=== PATIENT | male | born 1955 | race Caucasian/White ===

== ENCOUNTER 2020-10-04 18:00 | Inpatient (IN) | payer OTHER ==
[~2020-10-04] VITALS: Ht 177.8 cm; Wt 65.1 kg
[2020-10-04 18:28] LABS: BASOPHILS 0.1 % (0-2); EOSINOPHILS 1.8 % (0-7); HEMATOCRIT 37.6 % (42.0-54.0); HEMOGLOBIN 12.4 g/dL (13.5-17.5); IMMATURE GRANULOCYTES 0.6 % (0-5); LYMPHOCYTE ABS# 1.58 10x3/uL (1.32-3.57); MCH 29.3 pg (26.0-34.0); MCV 88.9 fL (80.0-100.0); MEAN PLATELET VOLUME 9.1 fL (7.4-10.4); MONOCYTES 6.5 % (2-11); NEUTROPHIL ABS# 5.97 10x3/uL (1.78-5.38); RBC 4.23 10x6/uL (4.20-6.10); RDW 14.3 % (11.5-14.5); WBC 8.3 10x3/uL (4.8-10.8)
[2020-10-04 18:34] LABS: PLATELET COUNT 364 10x3/uL (130-400)
[2020-10-04 18:35] LABS: ANION GAP 13.9 mmol/L (8-16); CALCIUM 8.5 mg/dL (8.5-10.1); CARBON DIOXIDE 25.9 mmol/L (21.0-32.0); CREATININE - SERUM 1.4 mg/dL (0.6-1.3); POTASSIUM - SERUM 3.8 mmol/L (3.5-5.1)
[2020-10-04 18:41] LABS: ALBUMIN 3.3 g/dL (3.4-5.0); BILIRUBIN - TOTAL 0.59 mg/dL (0.2-1.3); PROTEIN - SERUM 6.3 g/dL (6.4-8.2)
[2020-10-04 19:16] VITALS: BP 153/91
[2020-10-04 20:44] VITALS: BP 148/88
--- NOTE | 2020-10-04 20:45 | NUR ---
FLORES CATH WAS PLACED PRIOR TO ARRIVAL AT [facility] ER DUE TO URINARY RETENTION. CONTACTED RAJENDRA NAIK APN. HE STATES FOR FLORES CATH TO BE CONTINUED AND HE WOULD PLACE ORDER. 16FR FLORES IN PLACE WITH 300ML CLEAR URINE PRESENT IN BAG.
[2020-10-04 21:36] VITALS: BP 139/81
[2020-10-04 23:54] VITALS: BP 137/79
[2020-10-05] VITALS (20 sets, daily range): BP systolic 75–175; BP diastolic 48–104; Ht 177.8 cm; Wt 65.1 kg
[2020-10-05] MEDS ORDERED: THERMOTABS 1 GM1 GM PO (02:27)
[2020-10-05] MEDS ORDERED: NORVASC5 MG PO (02:28)
[2020-10-05] MEDS ORDERED: COMBIVENT RESPIM4 GM INH (02:29)
[2020-10-05] MEDS ORDERED: FLOMAX0.4 MG PO (02:30)
[2020-10-05] MEDS ORDERED: BACLOFEN10 MG PO (02:34)
[2020-10-05] MEDS ORDERED: VITAMIN D325 MC1 PO (02:36)
[2020-10-05] MEDS ORDERED: [UNRECOGNIZED DRUG - OTHER] (02:37)
[2020-10-05] MEDS ORDERED: MIRALAX17 GM PO (02:39)
[2020-10-05] MEDS ORDERED: CLARITIN 10 MG10 MG PO (02:39)
[2020-10-05] MEDS ORDERED: WELLBUTRIN SR150 MG PO (02:41)
[2020-10-05] MEDS ORDERED: VISTARIL25 MG PO (02:41)
[2020-10-05] MEDS ORDERED: AMBIEN5 MG PO (02:42)
[2020-10-05] MEDS ORDERED: ZYPREXA10 MG PO (02:43)
[2020-10-05 06:16] LABS: BASOPHILS 0.4 % (0-2); EOSINOPHILS 1.7 % (0-7); HEMATOCRIT 36.9 % (42.0-54.0); HEMOGLOBIN 11.8 g/dL (13.5-17.5); IMMATURE GRANULOCYTES 0.7 % (0-5); LYMPHOCYTE ABS# 1.71 10x3/uL (1.32-3.57); LYMPHOCYTES 21.2 % (15-50); MCH 28.7 pg (26.0-34.0); MCV 89.8 fL (80.0-100.0); MEAN PLATELET VOLUME 9.3 fL (7.4-10.4); MONOCYTES 3.6 % (2-11); NEUTROPHIL ABS# 5.83 10x3/uL (1.78-5.38); NEUTROPHILS 72.4 % (40-80); PLATELET COUNT 372 10x3/uL (130-400); RBC 4.11 10x6/uL (4.20-6.10); RDW 14.1 % (11.5-14.5); WBC 8.1 10x3/uL (4.8-10.8)
[2020-10-05 06:42] LABS: ALBUMIN 2.9 g/dL (3.4-5.0); ANION GAP 16.7 mmol/L (8-16); BILIRUBIN - TOTAL 0.46 mg/dL (0.2-1.3); CALCIUM 8.3 mg/dL (8.5-10.1); CARBON DIOXIDE 21.5 mmol/L (21.0-32.0); CREATININE - SERUM 1.2 mg/dL (0.6-1.3); MAGNESIUM - SERUM 2.1 mg/dL (1.8-2.4); PHOSPHOROUS 2.9 mg/dL (2.5-4.9); POTASSIUM - SERUM 4.2 mmol/L (3.5-5.1); PROTEIN - SERUM 5.5 g/dL (6.4-8.2)
[2020-10-05 06:44] LABS: APTT 35.6 SECONDS (22.8-39.4); INR 1.18 (0.85-1.17); PROTIME 13.9 SECONDS (11.6-15.0)
--- NOTE | 2020-10-05 07:47 | NUR ---
PT ALERT AND ORIENTED, LYING IN BED WATCHING T/V. PTS BLOOD SUGAR WAS REPORTED CRITICAL BY LAB, INFORMED STEM DRYER MAINTAINER RAJENDRA. STARTED HYPOGLYCEMIA PROTOCOL. HUNG N/S WITH DEXTROSE PER STEM DRYER MAINTAINER ORDER. PT IS ASYMPTOMATIC AT THIS TIME. CL IN REACH, SRX2. FLORES CATHETER IN PLACE AND DRAINING WNL.
--- NOTE | 2020-10-05 09:29 | NUR ---
PT ALERT AND ORIENTED, LYING IN BED. PT HAS HIT CALL LIGHT 5 TIMES ASKING WHEN HE CAN SEE THE DR. INFORMED PT THAT HE WOULD BE GOING TO SURGERY TODAY AND THE DR. WOULD SPEAK TO HIM WHEN HE ARRIVED. PT VERBALIZES UNDERSTANDING. CONSENTS FOR PROCEDURE/BLOOD/ECT SIGNED. CL IN REACH, SRX2.
--- NOTE | 2020-10-05 09:48 | NUR ---
I have reviewed this patient and I concur with the Shift Assessment completed by the Licensed Practical Nurse today this shift.
--- NOTE | 2020-10-05 12:17 | NUR ---
PT ESCORTED OT SRUGERY VIA BED WITH SURGICAL NURSE.
--- NOTE | 2020-10-05 13:13 | NUR ---
PT STILL OUT FOR SURGERY.
--- NOTE | 2020-10-05 14:52 | NUR ---
PT IS GOING TO BE TRANSFERED TO CVICU ROOM 3, CALLED REPORT TO THALIA GROSS.
--- NOTE | 2020-10-05 15:08 | NUR ---
1445:p RECEIVED TO CV03. TRANSFERRED TO ICU BED AND CONNECTED TO MONITOR. VS OBTAINED. 1500: INTUBATED BY ANESTHESIA WITH 8.5 OETT. INTUBATION DRUGS GIVEN BY ANETHESIA. CONNECTECD TO VENT WITH FOLLOWING SETTINGS. TV 500 FIO2 100% AC 16 PEEP 5.
--- NOTE | 2020-10-05 17:34 | NUR ---
1545: DR. MACKENZIE HERE. BRONCH DONE. DIPRIVAN STARTED PER ORDER. SEE IV FLOWSHEET. 1630: VENT CHANGES AFTER ABGS. AC INCREASED TO 20 AND PEEP INCREASED TO 8. 1640: IV STARTED IN R WRIST WITH 2OG ON 1ST ATTEMPT. SITE DRESSED WITH TEGADERM. GOOD BLOOD RETURN NOTED BEFORE STARTED DIPRIVAN TO SITE.
--- NOTE | 2020-10-05 19:20 | NUR ---
REPORT REC'D AND CARE ASSUMED, REC'D PT ON VENT VIA 8.5ETT TAPED SECURELY SEE FLOWSHEET FOR VENT SETTINGS, AROUSES TO DEEP STIMULI, NODDING YES AND NO APPROPRIATELY, RIGHT WIRST PIV WITH DIPRIVAN INFUSING @ 10MCG/KG/MIN, SITE CDI, LEFT FOREARM WITH D5NS @ 100CC/HR, NO REDNESS OR EDEMA NOTED AT SITE, HYPOACTIVE BOWEL SOUNDS, NOTE ABOVE BED THAT STATES NO NGT OR OGT PER DR. SOLER, FLORES PATENT DRAINING CLEAR YELLOW URINE, BILAT SCDS ON, BILAT SOFT WRIST RESTRAINTS INTACT, WILL MONITOR FOR CHANGES.
[2020-10-06] VITALS (24 sets, daily range): BP systolic 83–137; BP diastolic 48–76
[2020-10-06 05:16] LABS: HEMATOCRIT 34.4 % (42.0-54.0); HEMOGLOBIN 11.3 g/dL (13.5-17.5); LYMPHOCYTE ABS# 0.25 10x3/uL (1.32-3.57); MCHC 32.8 g/dL (31.0-37.0); MCV 88.4 fL (80.0-100.0); MEAN PLATELET VOLUME 9.2 fL (7.4-10.4); NEUTROPHIL ABS# 23.89 10x3/uL (1.78-5.38); PLATELET COUNT 296 10x3/uL (130-400); RBC 3.89 10x6/uL (4.20-6.10); RDW 14.2 % (11.5-14.5); WBC 24.4 10x3/uL (4.8-10.8)
[2020-10-06 05:38] LABS: ALBUMIN 2.3 g/dL (3.4-5.0); ALKALINE PHOSPHATASE 48 U/L (30-120); ALT (SGPT) 12 U/L (10-68); BILIRUBIN - TOTAL 0.46 mg/dL (0.2-1.3); CALCIUM 7.5 mg/dL (8.5-10.1); CARBON DIOXIDE 22.6 mmol/L (21.0-32.0); CHLORIDE - SERUM 105 mmol/L (98-107); CREATININE - SERUM 1.2 mg/dL (0.6-1.3); MAGNESIUM - SERUM 1.9 mg/dL (1.8-2.4); PHOSPHOROUS 3.1 mg/dL (2.5-4.9); POTASSIUM - SERUM 4.2 mmol/L (3.5-5.1); SODIUM 137 mmol/L (136-145); UREA NITROGEN 23 mg/dL (7-18); eGFR NON AFRICAN AMERICAN 65 mL/min (90-120)
[2020-10-06 05:44] LABS: LYMPHOCYTES 1 % (15-50); NEUTROPHILS 95 % (40-80); PLATELET ESTIMATE NORMAL
[2020-10-06 05:46] LABS: CALC OSMOLALITY 283 mosm/kg (275-300); GLUCOSE 207 mg/dL (74-106); TROPONIN-I < 0.017 ng/mL (0.000-0.060)
--- NOTE | 2020-10-06 11:21 | NUR ---
PLACED PT ON CPAP 10/5 50% AT 11 AM
--- NOTE | 2020-10-06 13:27 | OP ---
PATIENT NAME: LANDON HSU MEDICAL RECORD: [id number] :57 LOCATION:.[facility] D.CV03 ADMISSION DATE:10/05/20 SURGEON: JUAN SOLER MD DATE OF OPERATION: 10/05/2020 PREOPERATIVE DIAGNOSIS: Esophageal food bolus. POSTOPERATIVE DIAGNOSES: 1. Esophageal food bolus/bezoar. 2. Aspiration pneumonia. 3. 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 PROCEDURE: 1. Esophagogastroduodenoscopy with antral biopsies. 2. Retrieval of food bolus/bezoar. 3. Balloon dilation of the distal esophagus to 54-Bahraini. SURGEON: Juan Soler MD SPEEDBOAT DRIVER: None. BLOOD LOSS: Minimal. The risks, possible complications, and alternatives of the procedure were explained to the patient. He elects to proceed. OPERATIVE REPORT: The patient was conveyed to the operating room electively on 10/05/2020. General endotracheal anesthesia was induced by the anesthesia staff in order to help protect the patient's airway. A bite block was inserted. A gastroscope was inserted into the mouth. It was advanced easily into the hypopharynx. The esophagus was easily intubated. There was a large amount of retained food material in a person with a megaesophagus. I tried to aspirate as much of this as I could. A lot of it was solid food material. I was able to navigate through it, find the esophagogastric junction and intubate the stomach. I advanced through the pylorus into the third portion of the duodenum. Upon withdrawal, retroflexed and angulus views were obtained. Antral biopsies were obtained. I then withdrew into the esophagus again. Endoscopic retrieval net was advanced and I removed some of the bezoar. It was obvious that this was going to take a very long time and multiple intubations of the esophagus in order to clear the bezoar. Instead, I opted for a different approach. I loaded an overtube on the gastroscope. The bite block was removed. I then intubated the patient's esophagus and advanced the overtube into the stomach. I then removed the gastroscope. I removed the inner portion of the overtube. Through the overtube, utilizing a suction cannula, I slowly withdrew the overtube while suctioning through the overtube. This allowed me to suction large pieces of material that would not otherwise be able to be suctioned through an endoscope. I then removed the overtube completely. Utilizing the gastroscope, I intubated the esophagus. About 95% of the material had been removed. I advanced into the stomach. I advanced a balloon dilator. I dilated up to a 40.5 Bahraini. The balloon dilator was then removed. It appeared that I could perhaps dilate a little bit more, so I advanced another balloon dilator and dilated up to 54-Bahraini times 3 minutes. I then removed the balloon dilator. I was then able to irrigate the esophagus and irrigate the remaining food material down into the OPERATIVE REPORT [id number] LANDON HSU Farnaz stomach. There was a mucosal tear, which is an expected finding from the balloon dilation. There was no evidence of a full thickness esophageal injury. The gastroscope was then withdrawn. There was some either mucus or food material within the endotracheal tube, indicating that the patient aspirated during the procedure. The patient was then conveyed to the postanesthesia care unit after extubation. He developed low oxygen saturations and was reintubated electively after transfer to the ICU. I contacted Dr. Vásquez as well as the hospitalist team. Dr. Vásquez performed an urgent bronchoscopy. TRANSINT:[id number] Voice Confirmation ID: [id number] DOCUMENT ID: [id number] JUAN SOLER MD at 1327 CC: [id number] DICTATION DATE: 10/05/201820 CHEMICALS DISTILLER: 10/06/20 0038 ADM IN [facility] [address] [id number]
--- NOTE | 2020-10-06 13:42 | NUR ---
consent for bronchoscopy signed by physician and we were unable to find any family or friends to call. new iv started right ac 20 maegan.
--- NOTE | 2020-10-06 19:30 | NUR ---
REC'D PT ON VENT VIA 8.5ETT TAPED SECURELY, SEE FLOWSHEET FOR VENT SETTINGS, AWAKENS TO VERBAL STIMULI, SLOW TO FOLLOW COMMANDS BUT DOES AND NODS YES AND NO APPROPRIATELY, RIGHT WRIST PIV WITH DIPRIVAN INFUSING @ 20MCG/KG/MIN AND RIGHT A/C PIV WITH D5NS @ 100CC/HR, FLORES PATENT DRAINING CLEAR YELLOW URINE, BILAT SCDS INTACT AND ON, BILAT SOFT WRIST RESTRAINTS INTACT, SR UP X 2, VISIBLE TO NURSES STATION.
--- NOTE | 2020-10-06 23:00 | NUR ---
PT RESTLESS IN BED, PULLING COVERS OFF AND ATTEMPTING TO GET OOB DESPITE ATTEMPTING TO CALM AND REDIRECT, BP 128/77, 2MG VERSED GIVEN SLOW IVP, PT REPOSITIONED ONTO LEFT SIDE SUPPORTED WITH WEDGES, WILL MONITOR CLOSELY FOR CHANGES.
[2020-10-07] VITALS (25 sets, daily range): BP systolic 115–153; BP diastolic 60–85
[2020-10-07 04:19] LABS: BASOPHILS 0 % (0-2); EOSINOPHILS 0 % (0-7); HEMATOCRIT 32.1 % (42.0-54.0); HEMOGLOBIN 10.5 g/dL (13.5-17.5); IMMATURE GRANULOCYTES 0.4 % (0-5); MCH 28.9 pg (26.0-34.0); MCHC 32.7 g/dL (31.0-37.0); MCV 88.4 fL (80.0-100.0); MEAN PLATELET VOLUME 9.4 fL (7.4-10.4); MONOCYTES 1.4 % (2-11); NEUTROPHIL ABS# 15.83 10x3/uL (1.78-5.38); NEUTROPHILS 95.2 % (40-80); PLATELET COUNT 289 10x3/uL (130-400); RBC 3.63 10x6/uL (4.20-6.10); RDW 14.3 % (11.5-14.5)
[2020-10-07 04:35] LABS: WBC 16.6 10x3/uL (4.8-10.8)
[2020-10-07 04:45] LABS: ALBUMIN 2.1 g/dL (3.4-5.0); ANION GAP 9.8 mmol/L (8-16); BILIRUBIN - TOTAL 0.33 mg/dL (0.2-1.3); CALCIUM 7.5 mg/dL (8.5-10.1); CREATININE - SERUM 1.1 mg/dL (0.6-1.3); POTASSIUM - SERUM 3.8 mmol/L (3.5-5.1); PROTEIN - SERUM 4.8 g/dL (6.4-8.2)
[2020-10-07 04:47] LABS: PHOSPHOROUS 2.3 mg/dL (2.5-4.9)
--- NOTE | 2020-10-07 10:06 | NUR ---
PATIENT EXTUBATED AT 1005 THIS AM AND PLACED ON 3 LITERS NASAL CANNULA. PROPOFOL TURNED OFF BEFORE EXTUBATION.
--- NOTE | 2020-10-07 11:57 | NUR ---
Nutrition Reassessment/Follow-up: POD 2 EGD with biopsies, retrieval of food bolus, balloon dilation. Extubated this AM. Diet: NPO Wt: 136.6# (10/07)BMI: 19.6 Labs noted: Glu 190, Ca 7.5, PO4 2.3, Alb 2.1 Meds noted: Solumedrol, Protonix, D5NS @ 100, electrolyte protocol -Nutrition needs unchanged from initial assessment. -Rec advance diet as tolerated as medically feasible pending BLOOD BANK WORKER eval. -RD follow-up: 10/09
--- NOTE | 2020-10-07 17:23 | NUR ---
PATIENT ORIENTED TO SELF AND REORIENTATION TO PLACE WITH SUCCESS MOVES ALL EXTREMITIES AND SPEECH HAS DONE THE EVAL AND ORDERS FOR MEALS NOTED.
[2020-10-07 17:25] LABS: BILIRUBIN NEGATIVE (NEGATIVE); KETONE NEGATIVE (NEGATIVE); NITRITE NEGATIVE (NEGATIVE); UROBILINOGEN NORMAL mg/dL (< 2)
--- NOTE | 2020-10-07 19:15 | NUR ---
REPORT REC'D AND CARE ASSUMED, REC'D PT RESTING IN BED, STATE I NEED THE BEDPAN, BEDPAN PROVIDED AND CALL LIGHT IN REACH.
--- NOTE | 2020-10-07 19:25 | NUR ---
PT REMOVED SELF FROM BEDPAN, NO RESULTS NOTED, PT ASSISTED TO REPOSITION IN BED FOR COMFORT, ORIENTED X 3 AT THIS TIME, O2 @ 2LITERS VIA NC, CM-SR, RIGHT WRIST PIV SALINE LOCKED AND RIGHT A/C PIV WITH D5NS @ 100CC/HR, FLORES PATENT DRAINING CLEAR YELLOW URINE, BILAT SCDS ON, PPP, PT REQUESTING ICE WATER AND SOMETHING TO SPIT IN, PT REMINDED OF MITCHELL AT BS, KLEENEX AND ICE WATER PROVIDED, PT DENIES OTHER NEEDS.
--- NOTE | 2020-10-07 23:30 | NUR ---
PT UNABLE TO SLEEP, AWAKE WATCHING TV, REQUESTING ORANGE JUICE, JUICE PROVIDED, DENIES FURTHER NEEDS.
[2020-10-08] VITALS (16 sets, daily range): BP systolic 98–138; BP diastolic 52–78
--- NOTE | 2020-10-08 02:00 | NUR ---
PT RESTING WITH EYES CLOSED, RESP EVEN AND UNLABORED, VSS. PT DID NOT FINISH ORANGE JUICE STATED " MY STOMACH DID NOT LIKE IT", WILL CONT TO MONITOR FOR CHANGES.
[2020-10-08 05:16] LABS: BASOPHILS 0 % (0-2); EOSINOPHILS 0 % (0-7); HEMATOCRIT 33.8 % (42.0-54.0); HEMOGLOBIN 10.7 g/dL (13.5-17.5); IMMATURE GRANULOCYTES 0.3 % (0-5); LYMPHOCYTE ABS# 0.42 10x3/uL (1.32-3.57); LYMPHOCYTES 2.8 % (15-50); MCH 28.7 pg (26.0-34.0); MCHC 31.7 g/dL (31.0-37.0); MEAN PLATELET VOLUME 9.8 fL (7.4-10.4); MONOCYTES 2.1 % (2-11); NEUTROPHILS 94.8 % (40-80); PLATELET COUNT 277 10x3/uL (130-400); RBC 3.73 10x6/uL (4.20-6.10); RDW 14.4 % (11.5-14.5); WBC 15.1 10x3/uL (4.8-10.8)
[2020-10-08 05:20] LABS: MCV 90.6 fL (80.0-100.0)
[2020-10-08 06:03] LABS: ALBUMIN 2.2 g/dL (3.4-5.0); ALKALINE PHOSPHATASE 43 U/L (30-120); BILIRUBIN - TOTAL 0.27 mg/dL (0.2-1.3); CALC OSMOLALITY 281 mosm/kg (275-300); CALCIUM 7.6 mg/dL (8.5-10.1); CARBON DIOXIDE 24.6 mmol/L (21.0-32.0); CHLORIDE - SERUM 105 mmol/L (98-107); GLUCOSE 143 mg/dL (74-106); MAGNESIUM - SERUM 1.9 mg/dL (1.8-2.4); PHOSPHOROUS 1.9 mg/dL (2.5-4.9); POTASSIUM - SERUM 3.9 mmol/L (3.5-5.1); PROTEIN - SERUM 4.8 g/dL (6.4-8.2); SODIUM 138 mmol/L (136-145); UREA NITROGEN 24 mg/dL (7-18); eGFR NON AFRICAN AMERICAN 80 mL/min (90-120)
[2020-10-08 06:04] LABS: ALT (SGPT) 11 U/L (10-68)
--- NOTE | 2020-10-08 07:47 | NUR ---
SHIFT REPORT RECEIVE. AWAKE AND ALERT. ON 2L O2 VIA NC. DENIES PAIN. PIV TO RIGHT AC WITH D5NS AT 100ML/HR. PIV TO RIGHT WRIST SALINE LOC. FLORES CATHETER IN PLACE WITH CLEAR YELLOW URINE NOTED. SDC'S CURRENTLY OFF PER PT REQUEST. VSS. NO FEVER NOTED. CALL LIGHT IN REACH. WILL CONTINUE TO MONITOR.
--- NOTE | 2020-10-08 10:00 | NUR ---
PIV TO RIGHT WRIST IS LEAKING. DC'D AT THIS TIME.
--- NOTE | 2020-10-08 11:35 | NUR ---
UP TO CHAIR WITH PHYSICAL THERAPY. CALL LIGHT IN REACH.
--- NOTE | 2020-10-08 13:00 | NUR ---
CALL RECEIVED FROM [facility]. WANTED TO KNOW HOW PT WAS DOING. WAS TOLD PT WAS STABLE AND GOING TO A REGULAR ROOM LATER TODAY.
[2020-10-08 13:12] LABS: ACID FAST SMEAR Negative (()); AFB SPECIMEN PROCESSING Concentration (())
--- NOTE | 2020-10-08 13:33 | NUR ---
SITTING UP IN CHAIR. FLORES CATHETER DC'D AT THIS TIME. URINAL PROVIDED. NO FURTHER NEEDS AT THIS TIME. WILL CONTINUE TO MONITOR.
--- NOTE | 2020-10-08 14:49 | NUR ---
REPORT CALLED TO MIAH GROSS ON MED SURG. ROOM NOT READY. WILL TRANSFER PT WHEN ROOM IS READY.
--- NOTE | 2020-10-08 15:45 | NUR ---
ASSIST TO BATHROOM. FALL PREVENTION INITIATED WITH DONAVAN IN CHAIR AND BED. MARY KATE TO ASSIST BACK TO BED
[2020-10-09] VITALS: BP 131/75
--- NOTE | 2020-10-09 02:41 | NUR ---
ASSUMED CARE OF PT AFTER REPORT/ROUNDS. PT A&OX3 AND VERBALIZES WANTS/NEEDS CLEARLY, APPROPRIATELY AND WITHOUT HESITATION OR DIFFICULTY. PT DID VERBALIZE HE FELT LIKE HE VOIDED A SMALL AMOUNT ON TOILET AFTER CATH REMOVED EARLIER IN THE DAY. PT HAS NOT VOIDED FOR THIS NURSE. PT DID ATTEMPT TO VOID WITH 15CC'S OF CLEAR URINE RETURNED BUT, WITH GREAT DIFFICULTY. PT BLADDER SCANNED AND SCAN SHOWED 677ML. STOMACH SLIGHTLY DISTENDED TO MID LOWER AREA AND PT C/O PAIN WITH PALPATION OF SAME. PRODIVER CALLED AND ORDER FOR CATH REC'D. ATTEMPTED TO PLACE A 16FR AND BLOCKAGE FELT. COUDE 14FR PLACED WITH SUCCESS AND DRAINING. 1100ML OF CLEAR YELLOW URINE RETURNED IMMEDIATELY UPON PLACEMENT.
[2020-10-09 04:00] VITALS: BP 149/60
[2020-10-09 06:37] LABS: BASOPHILS 0 % (0-2); EOSINOPHILS 0 % (0-7); HEMATOCRIT 32.8 % (42.0-54.0); HEMOGLOBIN 10.4 g/dL (13.5-17.5); IMMATURE GRANULOCYTES 0.6 % (0-5); LYMPHOCYTE ABS# 0.63 10x3/uL (1.32-3.57); MCH 28.4 pg (26.0-34.0); MCHC 31.7 g/dL (31.0-37.0); MCV 89.6 fL (80.0-100.0); MEAN PLATELET VOLUME 9.8 fL (7.4-10.4); MONOCYTES 2.9 % (2-11); NEUTROPHIL ABS# 11.52 10x3/uL (1.78-5.38); NEUTROPHILS 91.5 % (40-80); PLATELET COUNT 281 10x3/uL (130-400); RBC 3.66 10x6/uL (4.20-6.10); RDW 13.9 % (11.5-14.5); WBC 12.6 10x3/uL (4.8-10.8)
[2020-10-09 07:20] LABS: ALBUMIN 2.2 g/dL (3.4-5.0); ALKALINE PHOSPHATASE 43 U/L (30-120); BILIRUBIN - TOTAL 0.35 mg/dL (0.2-1.3); CALC OSMOLALITY 273 mosm/kg (275-300); CALCIUM 7.6 mg/dL (8.5-10.1); CHLORIDE - SERUM 102 mmol/L (98-107); CREATININE - SERUM 0.8 mg/dL (0.6-1.3); GLUCOSE 123 mg/dL (74-106); MAGNESIUM - SERUM 1.8 mg/dL (1.8-2.4); PHOSPHOROUS 1.7 mg/dL (2.5-4.9); POTASSIUM - SERUM 3.7 mmol/L (3.5-5.1); PROTEIN - SERUM 4.9 g/dL (6.4-8.2); SODIUM 135 mmol/L (136-145); UREA NITROGEN 20 mg/dL (7-18); eGFR NON AFRICAN AMERICAN > 90 mL/min (90-120)
[2020-10-09 07:21] LABS: ALT (SGPT) 25 U/L (10-68)
[2020-10-09 08:00] VITALS: BP 151/88
--- NOTE | 2020-10-09 12:40 | NUR ---
Nutrition follow-up: Pt out of ICU Diet advanced to regular mechanical soft with thin liquids PO intake ~60% average of last 3 meals Wt: 144# +BM +fluid balance at this time labs reviewed Will continue to monitor patients progress toward nutritional goals Reassessment: 10/14/20
[2020-10-09 16:09] LABS: FUNGUS STAIN Final report (())
[2020-10-09 18:08] LABS: IMMUNOGLOBULIN E 3 IU/mL (6-495)
[2020-10-09 20:00] VITALS: BP 120/68
[2020-10-10 03:33] VITALS: BP 141/84
[2020-10-10 06:20] LABS: BASOPHILS 0 % (0-2); EOSINOPHILS 0 % (0-7); HEMOGLOBIN 10.1 g/dL (13.5-17.5); IMMATURE GRANULOCYTES 1.7 % (0-5); LYMPHOCYTE ABS# 0.65 10x3/uL (1.32-3.57); LYMPHOCYTES 7.5 % (15-50); MCH 28.7 pg (26.0-34.0); MCHC 32.6 g/dL (31.0-37.0); MCV 88.1 fL (80.0-100.0); MEAN PLATELET VOLUME 9.8 fL (7.4-10.4); MONOCYTES 5.3 % (2-11); NEUTROPHIL ABS# 7.37 10x3/uL (1.78-5.38); NEUTROPHILS 85.5 % (40-80); PLATELET COUNT 286 10x3/uL (130-400); RBC 3.52 10x6/uL (4.20-6.10); RDW 13.8 % (11.5-14.5)
[2020-10-10 06:23] LABS: WBC 8.6 10x3/uL (4.8-10.8)
[2020-10-10 06:45] LABS: ALKALINE PHOSPHATASE 43 U/L (30-120); BILIRUBIN - TOTAL 0.27 mg/dL (0.2-1.3); CALC OSMOLALITY 270 mosm/kg (275-300); CALCIUM 7.5 mg/dL (8.5-10.1); CARBON DIOXIDE 28.2 mmol/L (21.0-32.0); CHLORIDE - SERUM 101 mmol/L (98-107); CREATININE - SERUM 0.8 mg/dL (0.6-1.3); GLUCOSE 123 mg/dL (74-106); POTASSIUM - SERUM 3.9 mmol/L (3.5-5.1); PROTEIN - SERUM 4.2 g/dL (6.4-8.2); SODIUM 134 mmol/L (136-145); UREA NITROGEN 19 mg/dL (7-18); eGFR NON AFRICAN AMERICAN > 90 mL/min (90-120)
[2020-10-10 06:47] LABS: ALT (SGPT) 38 U/L (10-68)
[2020-10-10 08:56] VITALS: BP 145/80
--- NOTE | 2020-10-10 09:00 | NUR ---
ASSESSMENT PER FLOW SHEET. PATIENT IS WITHOUT DISTRESS.DENIES NEEDS.FALL PREVENTION WITH DONAVAN MAT. CALL LIGHT IN REACH. USE INSTRUCTED
[2020-10-10 12:58] VITALS: BP 122/86
--- NOTE | 2020-10-10 13:16 | NUR ---
PATIENT GOING FOR SWALLOW STUDY
[2020-10-10 16:55] VITALS: BP 141/80
--- NOTE | 2020-10-10 18:02 | NUR ---
NOT TOLERATING MECH SOFT THIN LIQUID DIET. LARGE AMOUNTS OF MUCOUS BEING SPIT OUT AFTER ONLY A COUPLE BITES.NPO FOR SAFETY
--- NOTE | 2020-10-10 19:03 | NUR ---
PIV TO RIGHT AC LEAKING. PIV REMOVED WITH CATHETER TIP INTACT. DRESSING APPLIED. 20G PIV TO LEFT HAND. PT TOLERATED WELL. PIV INFUSING PER ORDER WITHOUT DIFFICULTY/COMPROMISE. BED IS IN THE LOWEST POSITION. CALL LIGHT AND BEDSIDE TABLE ARE WITHIN REACH. SIDE RAILS X 2. WILL NOTIFY SHIFT NURSE.
[2020-10-10 20:00] VITALS: BP 101/64
--- NOTE | 2020-10-10 21:57 | NUR ---
ASSESSED AT THE BEGINNING OF THE SHIFT. PT IS ALERT AND ORIENTED, ABLE TO VERBALIZE NEEDS. HE HAS A FLORES CATH FOR URINARY RETENTION AND IS NPO DUE TO SWALLOWING PROBLEMS. HE HAS BEEN CHOKING AND SPITTING UP PHELM INTO A BLUE BAG OFF AND ON ALL EVENING. O2 IS IN PLACE AT 1 LITER PER N/C. SCD'S ARE IN PLACE. HELD HIS HS MEDS DUE TO THE SWALLOWING PROBLEMS. HE DOES HAVE SOME ICE TO KEEP HIS MOUTH FROM GETTING TOO DRY.
[2020-10-11] VITALS: BP 128/76; BP 130/73
--- NOTE | 2020-10-11 02:23 | NUR ---
RSTING OFF AND ON. NO SIGNS OF CHOKING WHILE ASLEEP. BLUE BAG FOR VOMIT AT THE BEDSIDE
[2020-10-11 07:07] LABS: BASOPHILS 0 % (0-2); EOSINOPHILS 0 % (0-7); HEMATOCRIT 32.7 % (42.0-54.0); HEMOGLOBIN 10.6 g/dL (13.5-17.5); IMMATURE GRANULOCYTES 1.5 % (0-5); LYMPHOCYTE ABS# 0.98 10x3/uL (1.32-3.57); LYMPHOCYTES 7.6 % (15-50); MCH 28.6 pg (26.0-34.0); MCHC 32.4 g/dL (31.0-37.0); MCV 88.1 fL (80.0-100.0); MEAN PLATELET VOLUME 9.5 fL (7.4-10.4); MONOCYTES 7.2 % (2-11); NEUTROPHIL ABS# 10.78 10x3/uL (1.78-5.38); NEUTROPHILS 83.7 % (40-80); PLATELET COUNT 290 10x3/uL (130-400); RBC 3.71 10x6/uL (4.20-6.10); RDW 13.7 % (11.5-14.5)
[2020-10-11 07:13] LABS: WBC 12.9 10x3/uL (4.8-10.8)
[2020-10-11 07:25] LABS: ALBUMIN 2.2 g/dL (3.4-5.0); ALKALINE PHOSPHATASE 45 U/L (30-120); ALT (SGPT) 31 U/L (10-68); BILIRUBIN - TOTAL 0.37 mg/dL (0.2-1.3); CALC OSMOLALITY 271 mosm/kg (275-300); CALCIUM 7.8 mg/dL (8.5-10.1); CARBON DIOXIDE 28.1 mmol/L (21.0-32.0); CHLORIDE - SERUM 99 mmol/L (98-107); CREATININE - SERUM 0.8 mg/dL (0.6-1.3); GLUCOSE 118 mg/dL (74-106); MAGNESIUM - SERUM 1.8 mg/dL (1.8-2.4); POTASSIUM - SERUM 3.4 mmol/L (3.5-5.1); PROTEIN - SERUM 4.8 g/dL (6.4-8.2); SODIUM 134 mmol/L (136-145); UREA NITROGEN 20 mg/dL (7-18); eGFR NON AFRICAN AMERICAN > 90 mL/min (90-120)
[2020-10-11 09:31] VITALS: BP 140/85
[2020-10-11 13:19] VITALS: BP 129/69
[2020-10-11 17:25] VITALS: BP 125/74
--- NOTE | 2020-10-12 05:24 | NUR ---
ASSESSED AT THE BEGINNING OF THE SHIFT. PT IS ALERT AND ORIENTED, ABLE TO VERBALIZE NEEDS. HE HAS SEEMED TO HAVE MORE ENERGY AND DID TRY TO EAT SOME OF HIS DINNER. HE REFUSED TO TAKE HIS SODIUM CHLORIDE PILL BUT DID ATTEMPT TO TAKE THE OTHERS. HE DID NOT KNOW IF HE KEPT ANY DOWN BECAUSE OF THE GAGGING AND SPITTING UP WHENEVER HE TRIED TO SWALLOW. HIS O2 IS 1 LITER AND HE HAS HIS SCD'S OFFF FOR HIS COMFORT.
[2020-10-12 05:52] LABS: BASOPHILS 0.1 % (0-2); EOSINOPHILS 0.3 % (0-7); HEMATOCRIT 30.9 % (42.0-54.0); HEMOGLOBIN 10.2 g/dL (13.5-17.5); IMMATURE GRANULOCYTES 2.2 % (0-5); LYMPHOCYTE ABS# 1.37 10x3/uL (1.32-3.57); LYMPHOCYTES 15.2 % (15-50); MCH 29.1 pg (26.0-34.0); MCV 88.3 fL (80.0-100.0); MEAN PLATELET VOLUME 9.6 fL (7.4-10.4); MONOCYTES 7.8 % (2-11); NEUTROPHIL ABS# 6.71 10x3/uL (1.78-5.38); NEUTROPHILS 74.4 % (40-80); PLATELET COUNT 272 10x3/uL (130-400); RDW 13.8 % (11.5-14.5)
[2020-10-12 06:11] LABS: ALBUMIN 2.2 g/dL (3.4-5.0); ALKALINE PHOSPHATASE 41 U/L (30-120); BILIRUBIN - TOTAL 0.38 mg/dL (0.2-1.3); CALC OSMOLALITY 272 mosm/kg (275-300); CALCIUM 7.8 mg/dL (8.5-10.1); CARBON DIOXIDE 27.3 mmol/L (21.0-32.0); CHLORIDE - SERUM 101 mmol/L (98-107); CREATININE - SERUM 0.9 mg/dL (0.6-1.3); GLUCOSE 109 mg/dL (74-106); MAGNESIUM - SERUM 1.8 mg/dL (1.8-2.4); POTASSIUM - SERUM 3.4 mmol/L (3.5-5.1); PROTEIN - SERUM 4.4 g/dL (6.4-8.2); SODIUM 135 mmol/L (136-145); UREA NITROGEN 18 mg/dL (7-18); eGFR NON AFRICAN AMERICAN 90 mL/min (90-120)
[2020-10-12 06:13] LABS: ALT (SGPT) 23 U/L (10-68)
[2020-10-12 06:24] VITALS: BP 115/67
[2020-10-12 08:22] VITALS: BP 145/91
[2020-10-12 12:20] VITALS: BP 117/76
[2020-10-12 16:49] VITALS: BP 143/81
--- NOTE | 2020-10-12 20:00 | NUR ---
WATCHING TV WITH NO COMPLAITNS VOICED. RESP UNLABORED. IV TO LEFT HAND INTACT WITHOUT REDNESS OR EDEMA NOTED. CL IN REACH
--- NOTE | 2020-10-13 00:12 | NUR ---
I have reviewed this patient and I concur with the Shift Assessment completed by the Licensed Practical Nurse today this shift.
[2020-10-13 00:40] VITALS: BP 132/75
[2020-10-13 07:56] LABS: BASOPHILS 0.1 % (0-2); EOSINOPHILS 1.6 % (0-7); HEMATOCRIT 33.9 % (42.0-54.0); IMMATURE GRANULOCYTES 3.9 % (0-5); LYMPHOCYTE ABS# 1.28 10x3/uL (1.32-3.57); LYMPHOCYTES 18.4 % (15-50); MCH 28.5 pg (26.0-34.0); MCHC 32.4 g/dL (31.0-37.0); MCV 87.8 fL (80.0-100.0); MEAN PLATELET VOLUME 9.2 fL (7.4-10.4); MONOCYTES 8.5 % (2-11); NEUTROPHIL ABS# 4.68 10x3/uL (1.78-5.38); NEUTROPHILS 67.5 % (40-80); PLATELET COUNT 283 10x3/uL (130-400); RBC 3.86 10x6/uL (4.20-6.10); RDW 13.9 % (11.5-14.5); WBC 6.9 10x3/uL (4.8-10.8)
[2020-10-13 08:14] VITALS: BP 129/77
[2020-10-13 08:23] LABS: ALBUMIN 2.3 g/dL (3.4-5.0); ALKALINE PHOSPHATASE 47 U/L (30-120); ALT (SGPT) 24 U/L (10-68); BILIRUBIN - TOTAL 0.53 mg/dL (0.2-1.3); CALC OSMOLALITY 267 mosm/kg (275-300); CALCIUM 7.9 mg/dL (8.5-10.1); CARBON DIOXIDE 28.4 mmol/L (21.0-32.0); CHLORIDE - SERUM 99 mmol/L (98-107); CREATININE - SERUM 0.8 mg/dL (0.6-1.3); GLUCOSE 87 mg/dL (74-106); MAGNESIUM - SERUM 1.9 mg/dL (1.8-2.4); POTASSIUM - SERUM 3.9 mmol/L (3.5-5.1); PROTEIN - SERUM 4.6 g/dL (6.4-8.2); SODIUM 134 mmol/L (136-145); UREA NITROGEN 14 mg/dL (7-18); eGFR NON AFRICAN AMERICAN > 90 mL/min (90-120)
--- NOTE | 2020-10-13 09:54 | NUR ---
RESTING IN BED, NO DISTRESS NOTED, NPO, FLORES TO GRAVITY, GOOD OUTPUT, IV INFUSING
--- NOTE | 2020-10-13 12:03 | NUR ---
UP IN CHAIR FOR MEAL PER DR SOUZA
[2020-10-13 13:42] VITALS: BP 98/69
[2020-10-13 16:35] VITALS: BP 101/64
[2020-10-14 06:59] LABS: HEMATOCRIT 39.7 % (42.0-54.0); HEMOGLOBIN 13.1 g/dL (13.5-17.5); LYMPHOCYTE ABS# 0.39 10x3/uL (1.32-3.57); MCH 28.9 pg (26.0-34.0); MCV 87.6 fL (80.0-100.0); MEAN PLATELET VOLUME 9.7 fL (7.4-10.4); NEUTROPHIL ABS# 29.49 10x3/uL (1.78-5.38); PLATELET COUNT 322 10x3/uL (130-400); RBC 4.53 10x6/uL (4.20-6.10); RDW 14.3 % (11.5-14.5); WBC 30.6 10x3/uL (4.8-10.8)
[2020-10-14 07:24] LABS: ANION GAP 11.9 mmol/L (8-16); BILIRUBIN - TOTAL 0.72 mg/dL (0.2-1.3); CALCIUM 7.8 mg/dL (8.5-10.1); CARBON DIOXIDE 23.9 mmol/L (21.0-32.0); MAGNESIUM - SERUM 2.1 mg/dL (1.8-2.4); POTASSIUM - SERUM 3.8 mmol/L (3.5-5.1); PROTEIN - SERUM 4.4 g/dL (6.4-8.2)
[2020-10-14 07:25] LABS: CREATININE - SERUM 1.3 mg/dL (0.6-1.3)
[2020-10-14 07:29] LABS: LYMPHOCYTES 2 % (15-50); MONOCYTES 1 % (2-11); NEUTROPHILS 93 % (40-80); PLATELET ESTIMATE NORMAL
--- NOTE | 2020-10-14 08:03 | NUR ---
PT LAYING IN BED RESTING WITH EYES CLOSED, VISIBLE RESPIRATIONS, NO SIGNS OF DISTRESS, FLORES BAG BELOW PT LEVEL, BED IN LOWEST POSITION
--- NOTE | 2020-10-14 09:08 | NUR ---
LAB NOTIFIED RE-DRAW CBC TO RECHECK WBC PER DR CONN
[2020-10-14 09:57] LABS: BASOPHILS 0 % (0-2); EOSINOPHILS 0 % (0-7); HEMATOCRIT 39.2 % (42.0-54.0); HEMOGLOBIN 13.1 g/dL (13.5-17.5); IMMATURE GRANULOCYTES 0.9 % (0-5); LYMPHOCYTE ABS# 0.49 10x3/uL (1.32-3.57); LYMPHOCYTES 1.9 % (15-50); MCH 29.4 pg (26.0-34.0); MCHC 33.4 g/dL (31.0-37.0); MCV 87.9 fL (80.0-100.0); MEAN PLATELET VOLUME 9.3 fL (7.4-10.4); MONOCYTES 1.7 % (2-11); NEUTROPHIL ABS# 24.07 10x3/uL (1.78-5.38); NEUTROPHILS 95.5 % (40-80); PLATELET COUNT 295 10x3/uL (130-400); RBC 4.46 10x6/uL (4.20-6.10); RDW 14.3 % (11.5-14.5); WBC 25.2 10x3/uL (4.8-10.8)
[2020-10-14 10:02] VITALS: BP 114/73
[2020-10-14 12:10] LABS: FUNGUS CULTURE RESULT 1 Candida glabrata (()); FUNGUS MYCOLOGY CULTURE Preliminary report (()); FUNGUS STAIN RESULT 1 Yeast observed (())
[2020-10-14 14:07] VITALS: BP 138/66
--- NOTE | 2020-10-14 14:16 | NUR ---
Nutrition reassessment: Diet order: Full liquids; has also been receiving some soft bland meal trays Dx: food bolus PO intake ~50% of meals at this time Ht: 5'10" Wt: 144# Last BM: 10/08/20 -> liquid; stool sample sent for review Labs reviewed Estimated needs based on Acual Body weight of 144#: 2860-5402 kcal (25-35 kcal/kg) 65-85 gm protein (1.0-1.3 gm/kg) 3574-9608 ml fluid or per MD. 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 Nutrition goals: - PO intake of full liquids will increase to =/> 75% of meals - Meet est fluid needs - Stable wt with increase to UBW/IBW INterventions: Will provide food choices with selective full liquid diet and RDN will order Ensure with meals. RDN follow-up on progress toward nutrition goals: 10/17/20
[2020-10-14 18:59] VITALS: BP 110/79
[2020-10-14 20:00] VITALS: BP 101/51
--- NOTE | 2020-10-15 02:16 | NUR ---
I have reviewed this patient and I concur with the Shift Assessment completed by the Licensed Practical Nurse today this shift.
[2020-10-15 04:00] VITALS: BP 109/62
[2020-10-15 06:34] LABS: BASOPHILS 0 % (0-2); EOSINOPHILS 0.4 % (0-7); IMMATURE GRANULOCYTES 0.7 % (0-5); LYMPHOCYTE ABS# 0.74 10x3/uL (1.32-3.57); MCH 29.3 pg (26.0-34.0); MCHC 33.4 g/dL (31.0-37.0); MCV 87.5 fL (80.0-100.0); MEAN PLATELET VOLUME 9.5 fL (7.4-10.4); MONOCYTES 3.3 % (2-11); NEUTROPHIL ABS# 11.02 10x3/uL (1.78-5.38); NEUTROPHILS 89.6 % (40-80); PLATELET COUNT 284 10x3/uL (130-400); RDW 14.4 % (11.5-14.5)
[2020-10-15 06:46] LABS: HEMATOCRIT 29.3 % (42.0-54.0); HEMOGLOBIN 9.8 g/dL (13.5-17.5); RBC 3.35 10x6/uL (4.20-6.10); WBC 12.3 10x3/uL (4.8-10.8)
[2020-10-15 06:50] LABS: ALBUMIN 1.8 g/dL (3.4-5.0); ALKALINE PHOSPHATASE 37 U/L (30-120); ALT (SGPT) 12 U/L (10-68); BILIRUBIN - TOTAL 0.55 mg/dL (0.2-1.3); CALC OSMOLALITY 269 mosm/kg (275-300); CALCIUM 7.6 mg/dL (8.5-10.1); CARBON DIOXIDE 24.6 mmol/L (21.0-32.0); CHLORIDE - SERUM 102 mmol/L (98-107); GLUCOSE 87 mg/dL (74-106); POTASSIUM - SERUM 3.4 mmol/L (3.5-5.1); SODIUM 134 mmol/L (136-145); UREA NITROGEN 22 mg/dL (7-18); eGFR NON AFRICAN AMERICAN 80 mL/min (90-120)
--- NOTE | 2020-10-15 07:30 | NUR ---
REC'D IN BED DURING WALKING ROUNDS AWAKE AND ALERT. RESP EVEN AND UNLABOREDW WITH NO DISTRESS NOTED. CAN EXPRESS NEEDS AND WANTS.NO C/O NOTED OR VOICED AT THIS TIME. ASSESSMENT COMPLETED. C/L IN REACH AT BEDSIDE.
[2020-10-15 08:50] VITALS: BP 131/61
[2020-10-15 14:48] VITALS: BP 134/62
[2020-10-15 17:51] VITALS: BP 119/69
[2020-10-15 20:00] VITALS: BP 129/66
--- NOTE | 2020-10-15 20:00 | NUR ---
PT SITTING UP IN BED WITHOUT DISTRESS, AOX4. DENIES NEEDS OR PAIN. DONAVAN ON. CL IN REACH
[2020-10-16] VITALS: BP 111/61
[2020-10-16 04:00] VITALS: BP 122/69
--- NOTE | 2020-10-16 07:15 | NUR ---
REC'D IN WITH EYES CLOSED EASILY TO AROUSED WHEN NAME IS CALLED. RESP EVEN AND UNLABORED WITH NO DISTRESS NOTED OR VOICED. NO C/O NOTED OR VOICED. ASSESSMENT COMPLETED. C/L IN REACH AT BEDSIDE.
[2020-10-16 07:17] LABS: BASOPHILS 0 % (0-2); EOSINOPHILS 0.8 % (0-7); HEMATOCRIT 27.6 % (42.0-54.0); HEMOGLOBIN 9.2 g/dL (13.5-17.5); IMMATURE GRANULOCYTES 0.4 % (0-5); LYMPHOCYTES 9.6 % (15-50); MCH 29.2 pg (26.0-34.0); MCHC 33.3 g/dL (31.0-37.0); MCV 87.6 fL (80.0-100.0); MEAN PLATELET VOLUME 9.1 fL (7.4-10.4); MONOCYTES 5.1 % (2-11); NEUTROPHIL ABS# 7.04 10x3/uL (1.78-5.38); NEUTROPHILS 84.1 % (40-80); PLATELET COUNT 261 10x3/uL (130-400); RBC 3.15 10x6/uL (4.20-6.10); RDW 14.3 % (11.5-14.5)
[2020-10-16 07:27] LABS: WBC 8.4 10x3/uL (4.8-10.8)
[2020-10-16 07:52] LABS: ALBUMIN 1.8 g/dL (3.4-5.0); ALKALINE PHOSPHATASE 38 U/L (30-120); ALT (SGPT) 13 U/L (10-68); BILIRUBIN - TOTAL 0.52 mg/dL (0.2-1.3); CALC OSMOLALITY 263 mosm/kg (275-300); CALCIUM 7.4 mg/dL (8.5-10.1); CARBON DIOXIDE 24.9 mmol/L (21.0-32.0); CHLORIDE - SERUM 100 mmol/L (98-107); GLUCOSE 86 mg/dL (74-106); POTASSIUM - SERUM 3.5 mmol/L (3.5-5.1); PROTEIN - SERUM 4.1 g/dL (6.4-8.2); SODIUM 131 mmol/L (136-145); UREA NITROGEN 17 mg/dL (7-18); eGFR NON AFRICAN AMERICAN 80 mL/min (90-120)
[2020-10-16 10:11] VITALS: BP 121/58
--- NOTE | 2020-10-16 11:29 | NUR ---
IN BED RESTING. FREE FROM SIGNS OF DISTRESS. BED LOW POSITION, CALL LIGHT IN REACH. DONAVAN ALARM ON. WILL CONTINUE TO MONITOR.
[2020-10-16 14:48] VITALS: BP 125/63
[2020-10-16 17:11] VITALS: BP 135/68
[2020-10-16 20:00] VITALS: BP 136/78
--- NOTE | 2020-10-16 20:00 | NUR ---
PT SITTING UP IN BED WITHOUT DISTRESS, AOX4. IV RIGHT FA INFUSING D5NS @ 50. DENIES PAIN OR NEEDS. PROVIDED APPLE JUICE. CL IN REACH, BED ALARM ON
[2020-10-17 04:00] VITALS: BP 120/68
[2020-10-17 06:40] LABS: BASOPHILS 0 % (0-2); EOSINOPHILS 0.7 % (0-7); HEMATOCRIT 27.9 % (42.0-54.0); HEMOGLOBIN 9.2 g/dL (13.5-17.5); IMMATURE GRANULOCYTES 0.6 % (0-5); LYMPHOCYTE ABS# 0.92 10x3/uL (1.32-3.57); LYMPHOCYTES 10.8 % (15-50); MCH 29.2 pg (26.0-34.0); MCV 88.6 fL (80.0-100.0); MEAN PLATELET VOLUME 9.2 fL (7.4-10.4); MONOCYTES 5.6 % (2-11); NEUTROPHIL ABS# 7.02 10x3/uL (1.78-5.38); NEUTROPHILS 82.3 % (40-80); PLATELET COUNT 271 10x3/uL (130-400); RBC 3.15 10x6/uL (4.20-6.10); RDW 14.1 % (11.5-14.5); WBC 8.5 10x3/uL (4.8-10.8)
[2020-10-17 06:53] LABS: ALBUMIN 1.9 g/dL (3.4-5.0); ALKALINE PHOSPHATASE 38 U/L (30-120); ALT (SGPT) 14 U/L (10-68); BILIRUBIN - TOTAL 0.33 mg/dL (0.2-1.3); CALC OSMOLALITY 265 mosm/kg (275-300); CHLORIDE - SERUM 101 mmol/L (98-107); GLUCOSE 99 mg/dL (74-106); POTASSIUM - SERUM 3.7 mmol/L (3.5-5.1); PROTEIN - SERUM 4.3 g/dL (6.4-8.2); SODIUM 132 mmol/L (136-145); UREA NITROGEN 16 mg/dL (7-18); eGFR NON AFRICAN AMERICAN 80 mL/min (90-120)
[2020-10-17 09:34] VITALS: BP 146/73
--- NOTE | 2020-10-17 12:14 | NUR ---
Nutrition follow-up: Diet order: Full liquids PO intake continues to be poor Labs reviewed Wt: 143# Pt is being followed by speech +BM after Miralax Due to pt with continued poor po intake, pt may benefit from an appetite stimulant. RDN will follow-up on progress toward nutrition goals: 10/21/20
--- NOTE | 2020-10-17 12:31 | NUR ---
OT NOTE: RECEIVED ORDERS FOR OT CONSULT, HOWEVER, PT WAS EVALUATED ON 10/10.. RE-CONSULT, PT WAS A AND 0 X 3.. VERY IMPULSIVE..DECREASED SAFETY AWARENESS.. PT SAT UP ON EOB AND STARTED TO STAND UP WITHOUT WALKER, OR TUBES BEING STRAIGHTNED, NO SOCKS ON.. ETC.. FREQ CUES TO HAVE PT WAIT UNTIL THIS THERAPIST WAS READY TO HELP HIM UP.. PT CONTINUALLY GRABBING HIS HEAD..STATED THAT IT WAS SINUS ISSUES.. WHEN ASKED IF HE WAS HURING OR FEELING DIZZY, HE REPORTED THAT HE FELT LIKE "HIS HEAD WAS FULL OF AIR"..BECAUSE OF THIS SINUS PRESSURE.. STATED THAT THIS HAPPENS ALL THE TIME?? PROVIDED PT WITH RW TO ASSIST WITH AMBULATION IN ROOM. PT WAS VERY UNSTEADY, FREQUENTLY PICKING UP ROLLING WALKER TO MOVE IT.. BALANCE WAS FAIR-..PT TENDING TO LEAN BACKWARDS WITH WT SHIFT ON HEELS VS TOES.. ABLE TO PERFORM SIMPLE GROOMING TASKS WITH SET UP; APPARENTLY DOING BLADDER TRAINING CATH WAS CLAMPED; HAD PT TRANSFER TO TOILET WITH MIN ASSIST.. FATIGUES QUICKLY. RECOMMEND IP REHAB SINCE PT LIVES ALONE AND IS CURRENTLY UNSAFE TO RETURN HOME ALONE AT THIS TIME. THANK YOU LORENA ROD, OTR/L..[id number]
--- NOTE | 2020-10-17 12:40 | NUR ---
FLORES UNCLAMPED DUE TO PT STATING HIS BLADDER FEELS FULL. CATHETER DRAINING WELL. WILL RECLAND IN 1 HOUR
--- NOTE | 2020-10-17 13:17 | NUR ---
FLORES CATHETER DRAINED APPROX. 700 CC FLORES RECLAMPED FOR TRAINING
[2020-10-17 13:44] VITALS: BP 125/64
--- NOTE | 2020-10-17 16:22 | NUR ---
THANK YOU FOR THIS REFERRAL. VISITED WITH PATIENT REGARDING REHAB SERVICES. PATIENT STATES THAT HE JUST WANTS TO GO HOME AND DOES NOT WISH TO PARTICIPATE IN INPATIENT THERAPY. DWAYNE GOMEZ LPN, CLINICAL LIAISON
[2020-10-17 16:23] VITALS: BP 134/77
--- NOTE | 2020-10-17 18:14 | NUR ---
PT HAS BEEN BLADDER TRAINED X 2 TIMES THIS SHIFT AND STATES HE FEELS FULL WHEN ITS BEEN CLAMPED FOR A FEW HOURS. KEEPS ASKING ABOUT TRANSFERRING TO [facility]. UNABLE TO GIVE INFORMATION TO PT AT THIS TIME.NO STOOL NOTED TODAY. MEDPLEX WAS CHANGED TO COCCYX THIS AM. REMAINS ON FALL PRECAUTIONS AND SCDS IN PLACE. CALL LIGHT IN REACH
--- NOTE | 2020-10-17 19:45 | NUR ---
RECEIVED BEDSIDE REPORT. PT LAYING IN BED A&O X4. PIV TO RIGHT FOREARM PATENT AND INFUSING, NO REDNESS OR SWELLING. REDNESS TO BUTTOCKS, DRSG C/D/I. FLORES IN PLACE, DRAINING TO GRAVITY, STATLOCK IN PLACE, CLEAR URINE. EDUCATED PT ON CL AND NEEDS, VERBALIZED UNDERSTANDING. BED LOW, BED ALARM ON, CL IN REACH.
[2020-10-17 20:00] VITALS: BP 126/65
[2020-10-18 04:00] VITALS: BP 130/73
[2020-10-18 05:38] LABS: BASOPHILS 0 % (0-2); EOSINOPHILS 1.4 % (0-7); HEMATOCRIT 28.8 % (42.0-54.0); HEMOGLOBIN 9.5 g/dL (13.5-17.5); IMMATURE GRANULOCYTES 0.4 % (0-5); LYMPHOCYTE ABS# 1.24 10x3/uL (1.32-3.57); LYMPHOCYTES 13.5 % (15-50); MCH 29.1 pg (26.0-34.0); MCV 88.1 fL (80.0-100.0); MEAN PLATELET VOLUME 9.1 fL (7.4-10.4); MONOCYTES 5.9 % (2-11); NEUTROPHIL ABS# 7.26 10x3/uL (1.78-5.38); NEUTROPHILS 78.8 % (40-80); PLATELET COUNT 274 10x3/uL (130-400); RBC 3.27 10x6/uL (4.20-6.10); RDW 14.2 % (11.5-14.5); WBC 9.2 10x3/uL (4.8-10.8)
[2020-10-18 05:49] LABS: ALBUMIN 2.2 g/dL (3.4-5.0); ANION GAP 12.1 mmol/L (8-16); BILIRUBIN - TOTAL 0.31 mg/dL (0.2-1.3); CARBON DIOXIDE 25.9 mmol/L (21.0-32.0); CREATININE - SERUM 1.1 mg/dL (0.6-1.3); PROTEIN - SERUM 4.7 g/dL (6.4-8.2)
--- NOTE | 2020-10-18 08:34 | NUR ---
AWAKE AND ALERT. ORIENTED X3. NO C/O AT THIS TIME. LUNGS ARE CLEAR BILATERALLY, NO COUGH NOTED. SKIN IS INTACT WITHOUT REDNESS EXCEPT TO BUTTOCKS WHICH HAS A MEPELEX IN PLACE. WILL MONITOR. IV TO RIGHT FOREARM IS PATENT WITHOUT REDNESS AT INSERTION SITE. FLORES PATENT WITH CLEAR YELLOW URINE. DENIES FEELING PRESSURE TO VOID.
[2020-10-18 08:52] VITALS: BP 140/84
--- NOTE | 2020-10-18 09:00 | NUR ---
ATE MOST OF CL BREAKFAST. TOOK AM MEDS WITHOUT DIFFICULTY. DENIES NEEDS.
--- NOTE | 2020-10-18 10:00 | NUR ---
FLORES FOUND TO UNCLAMPED. RECLAMPED AT THIS TIME. WILL MONITOR
--- NOTE | 2020-10-18 10:00 | NUR ---
AMBULATED IN MAXWELL WITH PT. UP IN CHIAR AT BEDSIDE. DENIES NEEDS.
[2020-10-18 12:29] VITALS: BP 162/63
--- NOTE | 2020-10-18 12:30 | NUR ---
LUNCH SERVED IN ROOM. FEEDS SELF. ATE MOST OF CL TRAY.
--- NOTE | 2020-10-18 14:00 | NUR ---
VERY CONCERNED ABOUT GOING TO [facility]. DISCUSSED WITH CM AND GAME PLAN IS FOR REHAB AND THEN HOME. DISCUSSED WITH PATIENT. ALL QUESTIONS ANSWERED.
--- NOTE | 2020-10-18 14:00 | NUR ---
STILL NO URGE TO URINATE. REPORTS VERY SMALL INFREQUENT VOIDS AT HOME. URINE LEAKED PAST THE CLAMP. 700 CC IN BAG CLEAR YELLOW URINE.
--- NOTE | 2020-10-18 15:43 | NUR ---
OT NOTE: (AM) PT COMPLETED SUPINE TO SIT WITH SBA. PT COMPLETED SIT TO STAND WITH CGA. PT COMPLETED ADL MOB WITH CGA. PT COMPLETED ESTEBAN SOCKS WITH MIN A. PT REQUIRED CUES FOR INCREASED SAFETY AWARENESS. (PM) PT COMPLETED CHAIR TO BED TSF WITH MIN A. PT EXHIBITED INCREASED IMPULSIVITY. PT COMPLETED UB HYGIENE WITH SETUP-MIN A. [phone];120-140 HERACLIO CARRERA COTA
--- NOTE | 2020-10-18 15:45 | NUR ---
AGREEABLE TO GO TO REHAB AT THIS TIME. DOCTOR NOTIFIED. CALLER REHAB FOR BED. WILL WAIT ON INSURANCE RESPONSE.
[2020-10-18] MEDS ORDERED: NICODERM CQ1 EAC3 TRANSDERM (16:05)
[2020-10-18] MEDS ORDERED: LOVENOX40 MG/0.4 SC (16:05)
[2020-10-18] MEDS ORDERED: HYDRALAZINE20 MG/ML IV (16:05)
[2020-10-18] MEDS ORDERED: LEVOFLOXAC500 MG/100 IV (16:05)
[2020-10-18] MEDS ORDERED: Xopenex 0.63 MG INH INH (16:05)
[2020-10-18] MEDS ORDERED: FLAGYL 500500 MG/100 IV (16:05)
[2020-10-18] MEDS ORDERED: ATROVENT 0.02%2.5 ML UPD (16:05)
[2020-10-18] MEDS ORDERED: QUESTRAN PACKET PO (16:05)
[2020-10-18] MEDS ORDERED: LOPRESSOR I5 MG/5 ML IV (16:06)
[2020-10-18] MEDS ORDERED: PULMICORT0.5 MG/21 UPD (16:06)
[2020-10-18] MEDS ORDERED: PROTONIX40 MG PO (16:06)
[2020-10-18] MEDS ORDERED: FLORAJEN DIGES1 EACH PO (16:06)
[2020-10-18 17:12] VITALS: BP 152/60
--- NOTE | 2020-10-18 18:15 | NUR ---
MARK UNCLAMPED AT THIS TIME. ATE ALL OF FL SUPPER. DENIES NEEDS. NO CHANGES NOTED.
--- NOTE | 2020-10-18 18:30 | NUR ---
FLORES RECLAMPED AT THIS TIME. 250 CC CLEAR YELLOW URINE IN BAG. WILL CONTINUE WITH BLADDER TRAINING.
--- NOTE | 2020-10-18 19:45 | NUR ---
RECEIVED BEDSIDE REPORT. PIV TO RIGHT FOREARM, PATENT AND INFUSING, NO REDNESS OR SWELLING. FLORES IN PLACE, DRAINING TO GRAVITY, STATLOCK IN PLACE, URINE CLEAR AND YELLOW. REDNESS TO BUTTOCKS, DRSG C/D/I. PT ABLE TO AMBULATE TO CHAIR WITH ASSIST. EDUCATED PT ON CL AND NEEDS, VERBALIZED UNDERSTANDING. BED LOW, CL IN REACH.
--- NOTE | 2020-10-19 00:45 | NUR ---
CONTINUING BLADDER TRAINING, EMPTIED 2000ML CLEAR YELLOW URINE, CLAMPED LINE AT THIS TIME. WCTM.
--- NOTE | 2020-10-19 03:45 | NUR ---
MARK UNCLAMPED AT THIS TIME. PT STATES HE FEELS LIKE HE HAS TO PEE.
--- NOTE | 2020-10-19 04:02 | NUR ---
EMPTIED 300ML CLEAR YELLOW URINE FROM FLORES. RECLAMPED FLORES. WILL CONTINUE BLADDER TRAINING.
[2020-10-19 05:48] VITALS: BP 113/68
[2020-10-19 05:54] VITALS: BP 120/62
[2020-10-19 06:43] LABS: BASOPHILS 0.1 % (0-2); EOSINOPHILS 1.8 % (0-7); HEMATOCRIT 29.1 % (42.0-54.0); HEMOGLOBIN 9.3 g/dL (13.5-17.5); IMMATURE GRANULOCYTES 0.8 % (0-5); LYMPHOCYTE ABS# 1.22 10x3/uL (1.32-3.57); LYMPHOCYTES 17.2 % (15-50); MCH 28.4 pg (26.0-34.0); MCV 88.7 fL (80.0-100.0); MEAN PLATELET VOLUME 9.2 fL (7.4-10.4); MONOCYTES 7.9 % (2-11); NEUTROPHIL ABS# 5.12 10x3/uL (1.78-5.38); NEUTROPHILS 72.2 % (40-80); PLATELET COUNT 295 10x3/uL (130-400); RBC 3.28 10x6/uL (4.20-6.10); RDW 14.1 % (11.5-14.5); WBC 7.1 10x3/uL (4.8-10.8)
[2020-10-19 07:33] LABS: ALBUMIN 2.1 g/dL (3.4-5.0); ANION GAP 9.6 mmol/L (8-16); BILIRUBIN - TOTAL 0.26 mg/dL (0.2-1.3); CALCIUM 8.2 mg/dL (8.5-10.1); CARBON DIOXIDE 26.6 mmol/L (21.0-32.0); CREATININE - SERUM 1.2 mg/dL (0.6-1.3); POTASSIUM - SERUM 4.2 mmol/L (3.5-5.1); PROTEIN - SERUM 4.5 g/dL (6.4-8.2)
[2020-10-19 08:27] VITALS: BP 112/62
--- NOTE | 2020-10-19 10:16 | NUR ---
REHAB PRESCREENING Patient has apparently changed his mind regarding rehab as he refused acute inpatient rehab on 10/17. I will contact his insurance provider to get authorization and notify case management of results. Thank you for this referral! Zoey Oconnor, PRINCIPAL PROGRAMMER Rehab PD
--- NOTE | 2020-10-19 11:42 | NUR ---
REHAB UPDATE Contacted [facility] who stated preauth for acute inpatient rehab must be initiated by their case management department which is closed until Wednesday. Rehab will initiate auth Wednesday if patient is still willing to come to rehab and continues to meet admission criteria. Thank you for this referral! Zoey Oconnor, ORNAMENTAL METAL WORKER HELPER Rehab PD
[2020-10-19 12:43] VITALS: BP 116/65
[2020-10-19 17:23] VITALS: BP 140/70
--- NOTE | 2020-10-19 17:23 | NUR ---
I have reviewed this patient and I concur with the Shift Assessment completed by the Licensed Practical Nurse today this shift.
[2020-10-19 20:00] VITALS: BP 123/70
--- NOTE | 2020-10-19 21:20 | NUR ---
EYES CLOSED RESP EVEN AND UNALBORED. NO DISTRESS NOTED. CL IN REACH
[2020-10-20 05:30] LABS: BASOPHILS 0.1 % (0-2); EOSINOPHILS 1.6 % (0-7); HEMATOCRIT 27.9 % (42.0-54.0); IMMATURE GRANULOCYTES 1.2 % (0-5); LYMPHOCYTE ABS# 1.22 10x3/uL (1.32-3.57); LYMPHOCYTES 14.9 % (15-50); MCH 28.7 pg (26.0-34.0); MCHC 32.3 g/dL (31.0-37.0); MCV 88.9 fL (80.0-100.0); MONOCYTES 7.7 % (2-11); NEUTROPHIL ABS# 6.09 10x3/uL (1.78-5.38); NEUTROPHILS 74.5 % (40-80); PLATELET COUNT 282 10x3/uL (130-400); RBC 3.14 10x6/uL (4.20-6.10); RDW 14.6 % (11.5-14.5); WBC 8.2 10x3/uL (4.8-10.8)
[2020-10-20 05:51] LABS: ALBUMIN 2.1 g/dL (3.4-5.0); ANION GAP 11.5 mmol/L (8-16); BILIRUBIN - TOTAL 0.23 mg/dL (0.2-1.3); CARBON DIOXIDE 24.9 mmol/L (21.0-32.0); CREATININE - SERUM 1.1 mg/dL (0.6-1.3); POTASSIUM - SERUM 4.4 mmol/L (3.5-5.1); PROTEIN - SERUM 4.5 g/dL (6.4-8.2)
[2020-10-20 07:00] VITALS: BP 145/64
--- NOTE | 2020-10-20 07:45 | NUR ---
PLACED PT ON BEDPAN FOR BM, WASNT ABLE TO HAVE A BM.
--- NOTE | 2020-10-20 07:47 | NUR ---
RESTING IN BED WITH EYES OPEN, ALERT AND ORIENTED. IV LOCATED TO RIGHT FA CURRENTLY RUNNING D5NS @ 50ML/HR. MARK PRESENT. NO CURRENT S/S OF DISTRESS AT THIS TIME, DENIES CURRENT NEEDS, WILL CONT TO MONITOR.
--- NOTE | 2020-10-20 08:40 | NUR ---
PLACED PT ON BEDPAN TO HAVE BM, PT WAS UNABLE TO HAVE BM.
--- NOTE | 2020-10-20 10:00 | NUR ---
PLACED PT ON BEDPAN TO HAVE A BM, PT WAS UNABLE TO HAVE A BM.
--- NOTE | 2020-10-20 14:27 | NUR ---
WALKED INTO PTS ROOM TO FIND IV LAYING ON THE BED, STARTED NEW IV TO RIGHT HAND. WILL CONT TO MONITOR.
[2020-10-20 15:07] VITALS: BP 125/72
--- NOTE | 2020-10-20 23:41 | NUR ---
I have reviewed this patient and I concur with the Shift Assessment completed by the Licensed Practical Nurse today this shift.
[2020-10-21 06:46] LABS: ALBUMIN 2.2 g/dL (3.4-5.0); ALKALINE PHOSPHATASE 41 U/L (30-120); ALT (SGPT) 17 U/L (10-68); BILIRUBIN - TOTAL 0.21 mg/dL (0.2-1.3); CALC OSMOLALITY 268 mosm/kg (275-300); CALCIUM 8.1 mg/dL (8.5-10.1); CARBON DIOXIDE 24.6 mmol/L (21.0-32.0); CHLORIDE - SERUM 101 mmol/L (98-107); GLUCOSE 98 mg/dL (74-106); POTASSIUM - SERUM 4.3 mmol/L (3.5-5.1); PROTEIN - SERUM 4.6 g/dL (6.4-8.2); SODIUM 134 mmol/L (136-145); UREA NITROGEN 16 mg/dL (7-18); eGFR NON AFRICAN AMERICAN 80 mL/min (90-120)
[2020-10-21 07:06] LABS: BASOPHILS 0.1 % (0-2); EOSINOPHILS 1.5 % (0-7); HEMATOCRIT 28.8 % (42.0-54.0); HEMOGLOBIN 9.3 g/dL (13.5-17.5); IMMATURE GRANULOCYTES 1.1 % (0-5); LYMPHOCYTE ABS# 0.98 10x3/uL (1.32-3.57); LYMPHOCYTES 13.3 % (15-50); MCH 28.6 pg (26.0-34.0); MCHC 32.3 g/dL (31.0-37.0); MCV 88.6 fL (80.0-100.0); MEAN PLATELET VOLUME 9.1 fL (7.4-10.4); MONOCYTES 7.1 % (2-11); NEUTROPHIL ABS# 5.65 10x3/uL (1.78-5.38); NEUTROPHILS 76.9 % (40-80); PLATELET COUNT 291 10x3/uL (130-400); RBC 3.25 10x6/uL (4.20-6.10); RDW 14.7 % (11.5-14.5); WBC 7.4 10x3/uL (4.8-10.8)
--- NOTE | 2020-10-21 09:22 | NUR ---
FLORES CATH DISCONTINUED AT THIS TIME WITH 1100 ML NOTED TO BAG. C/L IN REACH AT BEDSIDE.
[2020-10-21 10:18] VITALS: BP 114/74
--- NOTE | 2020-10-21 13:43 | NUR ---
Nutrition follow-up: Diet order: Full liquids with Ensure TID PO Intake 100% most meals Labs reviewed Wt: 143# +BM Pt to discharge to IP rehab soon Pt currently meeting most nutritional goals; pt is still with a fluid deficit. RDN will follow-up on pts progress toward nutrition goals: 10/25/20
[2020-10-21 14:00] VITALS: BP 139/78
--- NOTE | 2020-10-21 16:23 | NUR ---
OT NOTE: PT COMPLETED SIT TO STAND WITH MIN A. PT COMPLETED CHAIR TO BED TSF WITH MIN A. PT COMPLETED FACE HYGIENE WITH SETUP. PT COMPLETED ORAL CARE WITH MIN A USING TOOTHETTE. PT REQUIRED CUES FOR INCREASED SAFETY AWARENESS WITH TRANSFERS. [phone] THANK YOU,MIKEY ORR
--- NOTE | 2020-10-21 16:29 | NUR ---
FOLLOWED UP WITH PATIENT'S INSURANCE PROVIDER. FOAM MACHINE OPERATOR HAS NOT BEEN ASSIGNED OF YET. INSTRUCTED TO FOLLOW UP WITHIN 24 HOURS TO CONFIRM ALL NECESSARY CLINICALS WERE RECEIVED. -DWAYNE GOMEZ LPN, CLINICAL LIAISON
[2020-10-21 17:54] VITALS: BP 117/70
--- NOTE | 2020-10-21 18:31 | NUR ---
RESPIRATORY THERAPY IN ROOM. PATIENT DENIES NEEDS AT THIS TIME. BED LOW POSITION, CALL LIGHT IN REACH. FREE FROM SIGNS OF DISTRESS. WILL CONTINUE TO MONITOR.
--- NOTE | 2020-10-21 19:45 | NUR ---
RECEIVED BEDSIDE REPORT. PT LAYING IN BED A&O X4. NO IV ACCESS. PT ABLE TO AMBULATE WITH ASSIST. EDUCATED ON CL AND NEEDS, VERBALIZED UNDERSTANDING. BED LOW, ALARM ON, CL IN REACH.
[2020-10-21 20:00] VITALS: BP 122/71
[2020-10-22 04:00] VITALS: BP 101/65
[2020-10-22 06:59] LABS: BASOPHILS 0.7 % (0-2); HEMOGLOBIN 9.9 g/dL (13.5-17.5); LYMPHOCYTES 12.9 % (15-50); MCH 29.9 pg (26.0-34.0); MCV 87.8 fL (80.0-100.0); MEAN PLATELET VOLUME 6.9 fL (7.4-10.4); MONOCYTES 6.6 % (2-11); NEUTROPHILS 77.8 % (40-80); PLATELET COUNT 307 10x3/uL (130-400); RDW 15.2 % (11.5-14.5); WBC 8.5 10x3/uL (4.8-10.8)
[2020-10-22 07:27] LABS: ALBUMIN 2.4 g/dL (3.4-5.0); ANION GAP 14.9 mmol/L (8-16); BILIRUBIN - TOTAL 0.22 mg/dL (0.2-1.3); CALCIUM 8.1 mg/dL (8.5-10.1); CARBON DIOXIDE 22.9 mmol/L (21.0-32.0); CREATININE - SERUM 1.1 mg/dL (0.6-1.3); POTASSIUM - SERUM 4.8 mmol/L (3.5-5.1); PROTEIN - SERUM 4.4 g/dL (6.4-8.2)
[2020-10-22 10:02] VITALS: BP 116/72
[2020-10-22 14:48] VITALS: BP 123/71
--- NOTE | 2020-10-22 15:49 | NUR ---
OT NOTE: PT COMPLETED SUPINE TO SIT WITH CGA. PT COMPLETED SIT TO STAND WITH SBA. PT COMPLETED ADL MOB TO TOILET WITH SBA-CGA. PT COMPLETED TOILETING WITH SBA. PT REQUIRED MOD A FOR TOILET HYGIENE TO COMPLETE WITH THOROUGH CLEANING TO AVOID SKIN BREAKDOWN. PT COMPLETED FACE AND HAND HYGIENE WITH SETUP. PT COMPLETED HAIR GROOMING WITH SETUP AT EOB. [phone] HERACLIO CARRERA COTA
--- NOTE | 2020-10-22 16:29 | NUR ---
OT NOTE: PT PERFORMED SIT TO STAND ACT FROM CHAIR LEVEL WITH MIN/CGA FOR STRENGTHENING. IN ROOM AMBULATION WITH CGA..ABLE TO PERFORM SINK HYGIENE TASKS WITH SET UP AND FREQ CUES FOR THOROUGH CLEANING..PT ABLE TO PERFORM BUT DOES NOT DO A THOROUGH JOB.. ABLE TO ESTEBAN GOWN WITH SET UP.. ABLE TO PERFORM TOILET TRANFERS WITH CGA. LORENA ROD, OTR/L [phone]
[2020-10-22 17:21] VITALS: BP 133/107
--- NOTE | 2020-10-22 19:20 | NUR ---
WALKING REPORT COMPLETED. EXPLAINED TO PT THAT I WOULD BE BACK TO DO HIS ASSESSMENT AND GIVE HIS NIGHT MEDICATIONS. HE VERBALIZED UNDERSTANDING OF THIS.
[2020-10-22 20:00] VITALS: BP 114/64; BP 122/73
--- NOTE | 2020-10-22 21:15 | NUR ---
ASSESSMENT COMPLETED. MEDS GIVEN. HE TAKES THEM WHOLE ONE AT A TIME. HE IS IN THE PROCESS OF GETTING IN TO BED FOR THE NIGHT.
--- NOTE | 2020-10-22 23:00 | NUR ---
PT IS IN BED NOW. NO C/O OR NEEDS
--- NOTE | 2020-10-23 | NUR ---
PT IS RESTING QUIETLY WITH HIS EYES CLOSED. RESPIRATIONS EVEN AND UNLABORED.
--- NOTE | 2020-10-23 03:00 | NUR ---
PT IS STILL RESTING QUIETLY.
[2020-10-23 04:00] VITALS: BP 128/78
--- NOTE | 2020-10-23 05:45 | NUR ---
WAKED PT UP FOR MEDICATION. HE TOOK THIS WHOLE WITHOUT PROBLEM. HE STATES HE IS GOING BACK TO BED.
[2020-10-23 06:07] LABS: BASOPHILS 0.6 % (0-2); EOSINOPHILS 2.1 % (0-7); HEMATOCRIT 26.4 % (42.0-54.0); LYMPHOCYTES 13.7 % (15-50); MCH 29.8 pg (26.0-34.0); MCHC 34.2 g/dL (31.0-37.0); MCV 87.2 fL (80.0-100.0); MONOCYTES 7.6 % (2-11); PLATELET COUNT 268 10x3/uL (130-400); RBC 3.03 10x6/uL (4.20-6.10); RDW 14.9 % (11.5-14.5); WBC 7.8 10x3/uL (4.8-10.8)
[2020-10-23 06:23] LABS: ALBUMIN 2.2 g/dL (3.4-5.0); ALKALINE PHOSPHATASE 41 U/L (30-120); ALT (SGPT) 13 U/L (10-68); BILIRUBIN - TOTAL 0.17 mg/dL (0.2-1.3); CALC OSMOLALITY 261 mosm/kg (275-300); CALCIUM 8.1 mg/dL (8.5-10.1); CARBON DIOXIDE 24.3 mmol/L (21.0-32.0); CHLORIDE - SERUM 99 mmol/L (98-107); GLUCOSE 85 mg/dL (74-106); POTASSIUM - SERUM 4.5 mmol/L (3.5-5.1); PROTEIN - SERUM 4.7 g/dL (6.4-8.2); SODIUM 131 mmol/L (136-145); UREA NITROGEN 12 mg/dL (7-18); eGFR NON AFRICAN AMERICAN 80 mL/min (90-120)
--- NOTE | 2020-10-23 07:35 | NUR ---
RESTING IN BED WITH EYES CLOSED, NO S/S OF DISTRESS. NO IV ACCESS. WILL CONT TO MONITOR.
--- NOTE | 2020-10-23 07:50 | NUR ---
late entry 10/22/20 @ 1540 per RT he passed his walk test but she reported that his HR was >140 I let Joellen Bejarano APN aware of the above
[2020-10-23 08:39] VITALS: BP 122/66
--- NOTE | 2020-10-23 12:06 | NUR ---
@0806 THIS MORNING, ADDITIONAL INFORMATION WAS FAXED TO [facility] REQUESTED FOR REVIEW IN REGARDS TO INPATIENT REHAB AUTHORIZATION. SASHA SCOTT RN CLINICAL LIAISON, INPATIENT REHAB.
[2020-10-23 12:34] VITALS: BP 120/72
--- NOTE | 2020-10-23 13:12 | MORECARE ---
CASE MANAGEMENT DISCHARGE SUMMARY PATIENT: LANDON HSU UNIT: [id number] ADM DATE: 10/05/20 AGE: 65 : 56 SEX: M ROOM/BED: D.2206 AUTHOR: FLACODOC PHYSICIAN: REFERRING PHYSICIAN: LLOYD HORTON MD DATE OF SERVICE: 10/23/20 Case Management Discharge Planning Summary DCP REVIEW SUMMARY ANTICIPATED D/C DATE: EXPECTED LOS : CASE STATUS: DCP Initiated INITIAL REVIEW: 10/04/2020 INITIAL REVIEWER: Brisa Henriquez FINAL DISCHARGE DISPOSITION: : FINAL REVIEWER: FINAL REVIEW DATE: DCP Focus Questions & Answers DCP Screen QUESTION: ANSWER High Risk Factors: : Polypharmacy (greater than 10 meds) DCP Evaluation QUESTION: ANSWER Patient's ability to cope with chronic illness : d. No chronic illness Would patient like to participate in any Care Coordination programs (if applicable): : Not applicable Mental health screen: : No mental health history DCP Re-evaluation QUESTION: ANSWER Would patient like to participate in any Care Coordination programs (if applicable): : Not applicable PATIENT: LANDON HSU ENCOUNTER: [id number] MEDICAL RECORD#: [id number] ADMISSION DATE: 10/05/2020 DISCHARGE DATE: ATTENDING MD: LLOYD MORELAND : AGE: 65 MARITAL STATUS: S DC PLAN ID: [id number] FACILITY: [facility] PRINTED ON: 10/23/20 13:12 CT All edits/amendments must be made on the electronic document DICTATION DATE: 10/23/20 131 CAGE CASHIER: ANDREW 10/23/20 131 RPT#: [id number] DC DATE: STATUS: ADM IN [facility] [address] [place] [address] END OF REPORT
--- NOTE | 2020-10-23 13:36 | MORECARE ---
CASE MANAGEMENT DISCHARGE SUMMARY PATIENT: LANDON HSU UNIT: [id number] ADM DATE: 10/05/20 AGE: 65 : 56 SEX: M ROOM/BED: D.2206 AUTHOR: JAYLA SAM PHYSICIAN: REFERRING PHYSICIAN: LLOYD HORTON MD DATE OF SERVICE: 10/23/20 Case Management Discharge Planning Summary DCP REVIEW SUMMARY ANTICIPATED D/C DATE: EXPECTED LOS : CASE STATUS: DCP Initiated INITIAL REVIEW: 10/04/2020 INITIAL REVIEWER: Brisa Henriquez FINAL DISCHARGE DISPOSITION: : FINAL REVIEWER: FINAL REVIEW DATE: DCP Focus Questions & Answers DCP Screen QUESTION: ANSWER High Risk Factors: : Polypharmacy (greater than 10 meds) DCP Evaluation QUESTION: ANSWER Patient and/or caregiver agree upon recommended discharge plan? : Yes Family / Caregiver's ability to cope with chronic illness: : b. Minimal (occasionally not dependable to meet pt's. needs, can meet pt's. basic ADL's) Patient's current cognitive status: : Intermittently confused / memory changes Patient's ability to cope with chronic illness : a. Adequate (0-3 ED visits in 6 mos., adequate financial resources, attends scheduled appts.) Does the patient have the ability to pay for or attain post discharge needs / services? : Yes Functional screen assessment: : New onset in weakness or paralysis Physical Status: : Mobility impaired Alternate discharge plan (if recommended plan not agreed upon by patient and/or caregiver): : HOME WITH HOME HEALTH Is there a likelihood that the patient will require additional services to return to the preadmission environment? : Yes Living Arrangements: : Home Alone with Support Patient with capacity for self-care or can be cared for in same environment as prior to hospitalization? : Yes Living arrangements comments: : home alone [facility] ([phone]) EMERGENCY CONTACT Baseline cognitive status: : Intermittently confused / memory changes Baseline cognitive status: : *Oriented to person, place, situation, time and present Pharmacy name(s): : [facility] Planned post hospital services available for patient? : Yes Does Patient have transportation to get home and to follow-up medical appointments when discharged from the hospital? : Yes Planned post hospital services covered by insurance plan? : Yes Comments: : [facility]/[employer] Would patient like to participate in any Care Coordination programs (if applicable): : Not applicable Does the patient have electricity at home? : Yes Does the patient have running water in their house? : Yes Equipment in use: : [employer] agency name and contact information: : [facility] [phone] Mental health screen: : Currently under the care of mental health provider Mental health provider name and contact information: : [facility] Psychosocial status: : Adult with cognitive limitations Resources / Services in place: : [facility] agency on aging DCP Re-evaluation QUESTION: ANSWER Would patient like to participate in any Care Coordination programs (if applicable): : Not applicable PATIENT: LANDON HSU ENCOUNTER: [id number] MEDICAL RECORD#: [id number] ADMISSION DATE: 10/05/2020 DISCHARGE DATE: ATTENDING MD: LLOYD MORELAND : AGE: 65 MARITAL STATUS: S DC PLAN ID: [id number] FACILITY: [facility] PRINTED ON: 10/23/20 13:36 CT All edits/amendments must be made on the electronic document DICTATION DATE: 10/23/20 133 SECURITY ADMINISTRATOR: ANDREW 10/23/20 1336 RPT#: [id number] DC DATE: STATUS: ADM IN [facility] [address] [place] [address] END OF REPORT
--- NOTE | 2020-10-23 13:49 | MORECARE ---
CASE MANAGEMENT DISCHARGE SUMMARY PATIENT: LANDON HSU UNIT: [id number] ADM DATE: 10/05/20 AGE: 65 : 56 SEX: M ROOM/BED: D.2206 AUTHOR: JAYLA SAM PHYSICIAN: REFERRING PHYSICIAN: LLOYD HORTON MD DATE OF SERVICE: 10/23/20 Case Management Discharge Planning Summary COMMENTS ENTERED DATE: 10/23/20 13:35 CT COMMENT TYPE: Discharge Planning REVIEWER: Brisa Henriquez CM met with patient to complete initial dc planning assessment. CM educated patient on the CM role and verbal consent given by patient to complete assessment. Patient lives at home by himself where he states he tries the best he can to be independent with his care. It is very hard to get answers from him, his memory is not the best and he is having a hard time answering some of my questions. He lives by himself, he has an aide who comes in to help clean his home. His PCP is Cliff Maloney and uses [facility] pharmacy. He said that his friends take him to get groceries. He uses the [employer] to get him to the MD appointments. He knows who to call to set that up. He has a walker at home that he uses. He denies any other DME at his home. He said he goes to [facility] daily. On his white board Hannah ( [phone]) is the one who will take him home. I called Hannah to try to get more information but I did not get an answer. She is a nurse with [facility] and [employer], I left a message for her to call me back.. We are currently waiting for inpatient rehab for auth. If he does not get auth he would like to have home health and he did not care of what company to use. YISEL signed. At discharge patient plans to return and feels this is a safe discharge. CM discussed availability of home health, rehab services, and medical equipment. Patient denied known discharge needs at this time. CM will continue to follow and will assist as needed with dc plans/needs. DCP REVIEW SUMMARY ANTICIPATED D/C DATE: EXPECTED LOS : CASE STATUS: DCP Initiated INITIAL REVIEW: 10/04/2020 INITIAL REVIEWER: Brisa Henriquez FINAL DISCHARGE DISPOSITION: : FINAL REVIEWER: FINAL REVIEW DATE: DCP Focus Questions & Answers DCP Screen QUESTION: ANSWER High Risk Factors: : Polypharmacy (greater than 10 meds) DCP Evaluation QUESTION: ANSWER Patient and/or caregiver agree upon recommended discharge plan? : Yes Family / Caregiver's ability to cope with chronic illness: : b. Minimal (occasionally not dependable to meet pt's. needs, can meet pt's. basic ADL's) Patient's current cognitive status: : Intermittently confused / memory changes Patient's ability to cope with chronic illness : a. Adequate (0-3 ED visits in 6 mos., adequate financial resources, attends scheduled appts.) Does the patient have the ability to pay for or attain post discharge needs / services? : Yes Functional screen assessment: : New onset in weakness or paralysis Physical Status: : Mobility impaired Alternate discharge plan (if recommended plan not agreed upon by patient and/or caregiver): : HOME WITH HOME HEALTH Is there a likelihood that the patient will require additional services to return to the preadmission environment? : Yes Living Arrangements: : Home Alone with Support Patient with capacity for self-care or can be cared for in same environment as prior to hospitalization? : Yes Living arrangements comments: : home alone [facility] ([phone]) EMERGENCY CONTACT Baseline cognitive status: : Intermittently confused / memory changes Baseline cognitive status: : *Oriented to person, place, situation, time and present Pharmacy name(s): : [facility] Planned post hospital services available for patient? : Yes Does Patient have transportation to get home and to follow-up medical appointments when discharged from the hospital? : Yes Planned post hospital services covered by insurance plan? : Yes Comments: : [facility]/[place] [employer] Would patient like to participate in any Care Coordination programs (if applicable): : Not applicable Does the patient have electricity at home? : Yes Does the patient have running water in their house? : Yes Equipment in use: : [employer] agency name and contact information: : [facility] [phone] Mental health screen: : Currently under the care of mental health provider Mental health provider name and contact information: : [facility] Psychosocial status: : Adult with cognitive limitations Resources / Services in place: : [facility] agency on aging DCP Re-evaluation QUESTION: ANSWER Would patient like to participate in any Care Coordination programs (if applicable): : Not applicable PATIENT: LANDON HSU ENCOUNTER: [id number] MEDICAL RECORD#: [id number] ADMISSION DATE: 10/05/2020 DISCHARGE DATE: ATTENDING MD: LLOYD MORELAND : AGE: 65 MARITAL STATUS: S DC PLAN ID: [id number] FACILITY: [facility] PRINTED ON: 10/23/20 13:49 CT All edits/amendments must be made on the electronic document DICTATION DATE: 10/23/20 134 CAGE FIGHTER: ANDREW 10/23/20 1349 RPT#: [id number] DC DATE: STATUS: ADM IN [facility] [address] [place] [address] END OF REPORT
--- NOTE | 2020-10-23 14:23 | NUR ---
RECEIVED CALL FROM IGOR AT [facility]. SHE STATES THAT PATIENT WAS DENIED DUE TO NOT WARRANTING 24 HOUR NURSSING AND MEDICAL CARE BUT THOUGHT THAT HE COULD BENEFIT FROM HOME HEALTH. LEFT VOICE MAIL MESSAGE FOR CATARINO Blancas RN IN CASE MANAGEMENT TO ALERT THAT INSURANCE HAD DENIED PATIENT FOR ACUTE REHABILITATION.- DWAYNE GOMEZ LPN, CLINICAL LIAISON
--- NOTE | 2020-10-23 16:30 | NUR ---
OT NOTE: PT COMPLETED SUPINE TO SIT WITH SBA. PT COMPLETED SIT TO STAND WITH SBA-CGA. PT COMPLETED TOILETING WITH SBA. PT ATTEMPTED TOILET HYGIENE BUT REQUIRED MOD A FOR THOURGH CLEANING. PT REQUIRED MIN A TO ESTEBAN/DOFF SOCKS. PT COMPLETED ADL MOB WITH CGA. [phone] THANK YOU,MIKEY PULLIAM
[2020-10-23 16:54] VITALS: BP 103/62
--- NOTE | 2020-10-23 19:45 | NUR ---
RECEIVED BEDSIDE REPORT. PT LAYING IN BED A&O X4. NO IV ACCESS. PT ABLE TO AMBULATE WITH STAND BY ASSIST. EDUCATED PT ON CL AND NEEDS, VERBALIZED UNDERSTANDING. BED LOW, CL IN REACH.
[2020-10-23 20:00] VITALS: BP 112/69
[2020-10-24 04:00] VITALS: BP 117/75
[2020-10-24 05:57] LABS: BASOPHILS 0.8 % (0-2); HEMATOCRIT 27.9 % (42.0-54.0); HEMOGLOBIN 9.4 g/dL (13.5-17.5); LYMPHOCYTES 12.4 % (15-50); MCH 29.6 pg (26.0-34.0); MCHC 33.9 g/dL (31.0-37.0); MCV 87.4 fL (80.0-100.0); MEAN PLATELET VOLUME 6.6 fL (7.4-10.4); MONOCYTES 6.9 % (2-11); NEUTROPHILS 77.9 % (40-80); PLATELET COUNT 298 10x3/uL (130-400); RBC 3.19 10x6/uL (4.20-6.10); RDW 14.7 % (11.5-14.5); WBC 7.5 10x3/uL (4.8-10.8)
[2020-10-24 06:23] LABS: ALBUMIN 2.3 g/dL (3.4-5.0); ANION GAP 11.8 mmol/L (8-16); BILIRUBIN - TOTAL 0.19 mg/dL (0.2-1.3); CALCIUM 8.5 mg/dL (8.5-10.1); CARBON DIOXIDE 25.7 mmol/L (21.0-32.0); CREATININE - SERUM 1.1 mg/dL (0.6-1.3); POTASSIUM - SERUM 4.5 mmol/L (3.5-5.1); PROTEIN - SERUM 4.8 g/dL (6.4-8.2)
--- NOTE | 2020-10-24 07:42 | MORECARE ---
CASE MANAGEMENT DISCHARGE SUMMARY PATIENT: LANDON HSU UNIT: [id number] ADM DATE: 10/05/20 AGE: 65 : 56 SEX: M ROOM/BED: D.2206 AUTHOR: FLACO,DOC PHYSICIAN: REFERRING PHYSICIAN: LLOYD HORTON MD DATE OF SERVICE: 10/24/20 Case Management Discharge Planning Summary COMMENTS ENTERED DATE: 10/24/20 7:32 CT COMMENT TYPE: Discharge Planning REVIEWER: Brisa Henriquez received a call yesterday evening and was told he was denied inpatient rehab, will set him up with home health ENTERED DATE: 10/23/20 13:35 CT COMMENT TYPE: Discharge Planning REVIEWER: Brisa Henriquez CM met with patient to complete initial dc planning assessment. CM educated patient on the CM role and verbal consent given by patient to complete assessment. Patient lives at home by himself where he states he tries the best he can to be independent with his care. It is very hard to get answers from him, his memory is not the best and he is having a hard time answering some of my questions. He lives by himself, he has an aide who comes in to help clean his home. His PCP is Cliff Maloney and uses [facility] pharmacy. He said that his friends take him to get groceries. He uses the [employer] to get him to the MD appointments. He knows who to call to set that up. He has a walker at home that he uses. He denies any other DME at his home. He said he goes to [facility] daily. On his white board Hannah ( [phone]) is the one who will take him home. I called Hannah to try to get more information but I did not get an answer. She is a nurse with [employer] and [facility], I left a message for her to call me back.. We are currently waiting for inpatient rehab for auth. If he does not get auth he would like to have home health and he did not care of what company to use. YISEL signed. At discharge patient plans to return and feels this is a safe discharge. CM discussed availability of home health, rehab services, and medical equipment. Patient denied known discharge needs at this time. CM will continue to follow and will assist as needed with dc plans/needs. DCP REVIEW SUMMARY ANTICIPATED D/C DATE: EXPECTED LOS : CASE STATUS: DCP Initiated INITIAL REVIEW: 10/04/2020 INITIAL REVIEWER: Brisa Henriquez FINAL DISCHARGE DISPOSITION: : FINAL REVIEWER: FINAL REVIEW DATE: DCP Focus Questions & Answers DCP Screen QUESTION: ANSWER High Risk Factors: : Polypharmacy (greater than 10 meds) DCP Evaluation QUESTION: ANSWER Patient and/or caregiver agree upon recommended discharge plan? : Yes Family / Caregiver's ability to cope with chronic illness: : b. Minimal (occasionally not dependable to meet pt's. needs, can meet pt's. basic ADL's) Patient's current cognitive status: : Intermittently confused / memory changes Patient's ability to cope with chronic illness : a. Adequate (0-3 ED visits in 6 mos., adequate financial resources, attends scheduled appts.) Does the patient have the ability to pay for or attain post discharge needs / services? : Yes Functional screen assessment: : New onset in weakness or paralysis Physical Status: : Mobility impaired Alternate discharge plan (if recommended plan not agreed upon by patient and/or caregiver): : HOME WITH HOME HEALTH Is there a likelihood that the patient will require additional services to return to the preadmission environment? : Yes Living Arrangements: : Home Alone with Support Patient with capacity for self-care or can be cared for in same environment as prior to hospitalization? : Yes Living arrangements comments: : home alone [facility] ([phone]) EMERGENCY CONTACT Baseline cognitive status: : Intermittently confused / memory changes Baseline cognitive status: : *Oriented to person, place, situation, time and present Pharmacy name(s): : [facility] Planned post hospital services available for patient? : Yes Does Patient have transportation to get home and to follow-up medical appointments when discharged from the hospital? : Yes Planned post hospital services covered by insurance plan? : Yes Comments: : [facility]/[employer] Would patient like to participate in any Care Coordination programs (if applicable): : Not applicable Does the patient have electricity at home? : Yes Does the patient have running water in their house? : Yes Equipment in use: : [employer] agency name and contact information: : [facility] [phone] Mental health screen: : Currently under the care of mental health provider Mental health provider name and contact information: : [facility] Psychosocial status: : Adult with cognitive limitations Resources / Services in place: : [facility] agency on aging DCP Re-evaluation QUESTION: ANSWER Would patient like to participate in any Care Coordination programs (if applicable): : Not applicable PATIENT: LANDON HSU ENCOUNTER: [id number] MEDICAL RECORD#: [id number] ADMISSION DATE: 10/05/2020 DISCHARGE DATE: ATTENDING MD: LLOYD MORELAND : AGE: 65 MARITAL STATUS: S DC PLAN ID: [id number] FACILITY: [facility] PRINTED ON: 10/24/20 7:42 CT All edits/amendments must be made on the electronic document DICTATION DATE: 10/24/20741 SENIOR ARCHITECT/DESIGN MANAGER: ANDREW 10/24/2042 RPT#: [id number] DC DATE: STATUS: ADM IN [facility] [address] [place] [address] END OF REPORT
--- NOTE | 2020-10-24 08:03 | MORECARE ---
CASE MANAGEMENT DISCHARGE SUMMARY PATIENT: LANDON HSU UNIT: [id number] ADM DATE: 10/05/20 AGE: 65 : 57 SEX: M ROOM/BED: D.2206 AUTHOR: FLACO,DOC PHYSICIAN: REFERRING PHYSICIAN: LLOYD HORTON MD DATE OF SERVICE: 10/24/20 Case Management Discharge Planning Summary COMMENTS ENTERED DATE: 10/24/20 8:01 CT COMMENT TYPE: Discharge Planning REVIEWER: Brisa Henriquez REFERRAL SENT TO [facility] TO SEE IF THEY ARE IN NETWORK ENTERED DATE: 10/24/20 7:32 CT COMMENT TYPE: Discharge Planning REVIEWER: Brisa Henriquez received a call yesterday evening and was told he was denied inpatient rehab, will set him up with [facility] ENTERED DATE: 10/23/20 13:35 CT COMMENT TYPE: Discharge Planning REVIEWER: Brisa Henriquez CM met with patient to complete initial dc planning assessment. CM educated patient on the CM role and verbal consent given by patient to complete assessment. Patient lives at home by himself where he states he tries the best he can to be independent with his care. It is very hard to get answers from him, his memory is not the best and he is having a hard time answering some of my questions. He lives by himself, he has an aide who comes in to help clean his home. His PCP is Shelli Maloney and uses [facility]. He said that his friends take him to get groceries. He uses the [employer] to get him to the MD appointments. He knows who to call to set that up. He has a walker at home that he uses. He denies any other DME at his home. He said he goes to [facility] daily. On his white board Hannah ( [phone]) is the one who will take him home. I called Hannah to try to get more information but I did not get an answer. She is a nurse with [facility], I left a message for her to call me back.. We are currently waiting for inpatient rehab for auth. If he does not get auth he would like to have home health and he did not care of what company to use. YISEL signed. At discharge patient plans to return and feels this is a safe discharge. CM discussed availability of home health, rehab services, and medical equipment. Patient denied known discharge needs at this time. CM will continue to follow and will assist as needed with dc plans/needs. DCP REVIEW SUMMARY ANTICIPATED D/C DATE: EXPECTED LOS : CASE STATUS: DCP Initiated INITIAL REVIEW: 10/04/2020 INITIAL REVIEWER: Brisa Henriquez FINAL DISCHARGE DISPOSITION: : FINAL REVIEWER: FINAL REVIEW DATE: DCP Focus Questions & Answers DCP Screen QUESTION: ANSWER High Risk Factors: : Polypharmacy (greater than 10 meds) DCP Evaluation QUESTION: ANSWER Patient and/or caregiver agree upon recommended discharge plan? : Yes Family / Caregiver's ability to cope with chronic illness: : b. Minimal (occasionally not dependable to meet pt's. needs, can meet pt's. basic ADL's) Patient's current cognitive status: : Intermittently confused / memory changes Patient's ability to cope with chronic illness : a. Adequate (0-3 ED visits in 6 mos., adequate financial resources, attends scheduled appts.) Does the patient have the ability to pay for or attain post discharge needs / services? : Yes Functional screen assessment: : New onset in weakness or paralysis Physical Status: : Mobility impaired Alternate discharge plan (if recommended plan not agreed upon by patient and/or caregiver): : HOME WITH HOME HEALTH Is there a likelihood that the patient will require additional services to return to the preadmission environment? : Yes Living Arrangements: : Home Alone with Support Patient with capacity for self-care or can be cared for in same environment as prior to hospitalization? : Yes Living arrangements comments: : home alone HANNAH ([phone]) EMERGENCY CONTACT Baseline cognitive status: : Intermittently confused / memory changes Baseline cognitive status: : *Oriented to person, place, situation, time and present Pharmacy name(s): : [facility] Planned post hospital services available for patient? : Yes Does Patient have transportation to get home and to follow-up medical appointments when discharged from the hospital? : Yes Planned post hospital services covered by insurance plan? : Yes Comments: : HANNAH/AMARJIT TRANSPRTATION Would patient like to participate in any Care Coordination programs (if applicable): : Not applicable Does the patient have electricity at home? : Yes Does the patient have running water in their house? : Yes Equipment in use: : [employer] agency name and contact information: : HANNAH [phone] Mental health screen: : Currently under the care of mental health provider Mental health provider name and contact information: : [facility] Psychosocial status: : Adult with cognitive limitations Resources / Services in place: : [facility] agency on aging DCP Re-evaluation QUESTION: ANSWER Would patient like to participate in any Care Coordination programs (if applicable): : Not applicable PATIENT: LANDON HSU ENCOUNTER: [id number] MEDICAL RECORD#: [id number] ADMISSION DATE: 10/05/2020 DISCHARGE DATE: ATTENDING MD: LLOYD MORELAND : AGE: 65 MARITAL STATUS: S DC PLAN ID: [id number] FACILITY: [facility] PRINTED ON: 10/24/20 8:03 CT All edits/amendments must be made on the electronic document DICTATION DATE: 10/24/20801 EMBEDDED SYSTEMS SOFTWARE DEVELOPER: ANDREW 10/24/20801 RPT#: [id number] DC DATE: STATUS: ADM IN [facility] [address] [place] [address] END OF REPORT
--- NOTE | 2020-10-24 08:11 | NUR ---
ASSESSMENT PER FLOW SHEET. PATIENT IS WITHOUTT DISTRESS. SMALL RED AREAS NOTED TO BILATERAL ARMS. SPLIT NOTES TO MID COCCYX.SOME RED RAMY ON BUTTOCKS. PATIENT INSTRUCTED ON IS.DONAVAN MAT ON AND WORKING.CALL LIGHT IN REACH
[2020-10-24 08:25] VITALS: BP 112/76
--- NOTE | 2020-10-24 08:58 | MORECARE ---
CASE MANAGEMENT DISCHARGE SUMMARY PATIENT: LANDON HSU UNIT: [id number] ADM DATE: 10/05/20 AGE: 65 : 57 SEX: M ROOM/BED: D.2206 AUTHOR: FLACO,DOC PHYSICIAN: REFERRING PHYSICIAN: LLOYD HORTON MD DATE OF SERVICE: 10/24/20 Case Management Discharge Planning Summary COMMENTS ENTERED DATE: 10/24/20 8:01 CT COMMENT TYPE: Discharge Planning REVIEWER: Brisa Henriquez REFERRAL SENT TO [facility] TO SEE IF THEY ARE IN NETWORK ENTERED DATE: 10/24/20 7:32 CT COMMENT TYPE: Discharge Planning REVIEWER: Brisa Henriquez received a call yesterday evening and was told he was denied inpatient rehab, will set him up with [facility] ENTERED DATE: 10/23/20 13:35 CT COMMENT TYPE: Discharge Planning REVIEWER: Brisa Henriquez CM met with patient to complete initial dc planning assessment. CM educated patient on the CM role and verbal consent given by patient to complete assessment. Patient lives at home by himself where he states he tries the best he can to be independent with his care. It is very hard to get answers from him, his memory is not the best and he is having a hard time answering some of my questions. He lives by himself, he has an aide who comes in to help clean his home. His PCP is Shelli Maloney and uses [facility]. He said that his friends take him to get groceries. He uses the [employer] to get him to the MD appointments. He knows who to call to set that up. He has a walker at home that he uses. He denies any other DME at his home. He said he goes to [facility] and [facility] daily. On his white board Hannah ( [phone]) is the one who will take him home. I called Hannah to try to get more information but I did not get an answer. She is a nurse with [facility], I left a message for her to call me back.. We are currently waiting for inpatient rehab for auth. If he does not get auth he would like to have home health and he did not care of what company to use. YISEL signed. At discharge patient plans to return and feels this is a safe discharge. CM discussed availability of home health, rehab services, and medical equipment. Patient denied known discharge needs at this time. CM will continue to follow and will assist as needed with dc plans/needs. DCP REVIEW SUMMARY ANTICIPATED D/C DATE: EXPECTED LOS : CASE STATUS: DCP Initiated INITIAL REVIEW: 10/04/2020 INITIAL REVIEWER: Brisa Henriquez FINAL DISCHARGE DISPOSITION: : FINAL REVIEWER: FINAL REVIEW DATE: DCP Focus Questions & Answers DCP Screen QUESTION: ANSWER High Risk Factors: : Polypharmacy (greater than 10 meds) DCP Evaluation QUESTION: ANSWER Patient and/or caregiver agree upon recommended discharge plan? : Yes Family / Caregiver's ability to cope with chronic illness: : b. Minimal (occasionally not dependable to meet pt's. needs, can meet pt's. basic ADL's) Patient's current cognitive status: : Intermittently confused / memory changes Patient's ability to cope with chronic illness : a. Adequate (0-3 ED visits in 6 mos., adequate financial resources, attends scheduled appts.) Does the patient have the ability to pay for or attain post discharge needs / services? : Yes Functional screen assessment: : New onset in weakness or paralysis Physical Status: : Mobility impaired Alternate discharge plan (if recommended plan not agreed upon by patient and/or caregiver): : HOME WITH HOME HEALTH Is there a likelihood that the patient will require additional services to return to the preadmission environment? : Yes Living Arrangements: : Home Alone with Support Patient with capacity for self-care or can be cared for in same environment as prior to hospitalization? : Yes Living arrangements comments: : home alone HANNAH ([phone]) EMERGENCY CONTACT Baseline cognitive status: : Intermittently confused / memory changes Baseline cognitive status: : *Oriented to person, place, situation, time and present Pharmacy name(s): : [facility]? [facility] Planned post hospital services available for patient? : Yes Does Patient have transportation to get home and to follow-up medical appointments when discharged from the hospital? : Yes Planned post hospital services covered by insurance plan? : Yes Comments: : HANNAH/AMARJIT TRANSPRTATION Would patient like to participate in any Care Coordination programs (if applicable): : Not applicable Does the patient have electricity at home? : Yes Does the patient have running water in their house? : Yes Equipment in use: : [employer] agency name and contact information: : HANNAH [phone] Mental health screen: : Currently under the care of mental health provider Mental health provider name and contact information: : [facility] Psychosocial status: : Adult with cognitive limitations Resources / Services in place: : [facility] agency on aging DCP Re-evaluation QUESTION: ANSWER Would patient like to participate in any Care Coordination programs (if applicable): : Not applicable PATIENT: LANDON HSU ENCOUNTER: [id number] MEDICAL RECORD#: [id number] ADMISSION DATE: 10/05/2020 DISCHARGE DATE: ATTENDING MD: LLOYD MORELAND : AGE: 65 MARITAL STATUS: S DC PLAN ID: [id number] FACILITY: [facility] PRINTED ON: 10/24/20 8:57 CT All edits/amendments must be made on the electronic document DICTATION DATE: 10/24/20856 ENGINEERING INSPECTOR: ANDREW 10/24/20856 RPT#: [id number] DC DATE: STATUS: ADM IN [facility] [address] [place] [address] END OF REPORT
--- NOTE | 2020-10-24 10:45 | MORECARE ---
CASE MANAGEMENT DISCHARGE SUMMARY PATIENT: LANDON HSU UNIT: [id number] ADM DATE: 10/05/20 AGE: 65 : 57 SEX: M ROOM/BED: D.2206 AUTHOR: FLACO,DOC PHYSICIAN: REFERRING PHYSICIAN: LLOYD HORTON MD DATE OF SERVICE: 10/24/20 Case Management Discharge Planning Summary COMMENTS ENTERED DATE: 10/24/20 8:01 CT COMMENT TYPE: Discharge Planning REVIEWER: Brisa Henriquez REFERRAL SENT TO [facility] TO SEE IF THEY ARE IN NETWORK ENTERED DATE: 10/24/20 7:32 CT COMMENT TYPE: Discharge Planning REVIEWER: Brisa Henriquez received a call yesterday evening and was told he was denied inpatient rehab, will set him up with [facility] ENTERED DATE: 10/23/20 13:35 CT COMMENT TYPE: Discharge Planning REVIEWER: Brisa Henriquez CM met with patient to complete initial dc planning assessment. CM educated patient on the CM role and verbal consent given by patient to complete assessment. Patient lives at home by himself where he states he tries the best he can to be independent with his care. It is very hard to get answers from him, his memory is not the best and he is having a hard time answering some of my questions. He lives by himself, he has an aide who comes in to help clean his home. His PCP is Shelli Maloney and uses [facility]. He said that his friends take him to get groceries. He uses the [employer] to get him to the MD appointments. He knows who to call to set that up. He has a walker at home that he uses. He denies any other DME at his home. He said he goes to [facility] and [facility] daily. On his white board Hannah ( [phone]) is the one who will take him home. I called Hannah to try to get more information but I did not get an answer. She is a nurse with [facility], I left a message for her to call me back.. We are currently waiting for inpatient rehab for auth. If he does not get auth he would like to have home health and he did not care of what company to use. YISEL signed. At discharge patient plans to return and feels this is a safe discharge. CM discussed availability of home health, rehab services, and medical equipment. Patient denied known discharge needs at this time. CM will continue to follow and will assist as needed with dc plans/needs. DCP REVIEW SUMMARY ANTICIPATED D/C DATE: EXPECTED LOS : CASE STATUS: DCP Initiated INITIAL REVIEW: 10/04/2020 INITIAL REVIEWER: Brisa Henriquez FINAL DISCHARGE DISPOSITION: 06 : Discharged/Trans to Home Under Care of Organized Home Health Service in Anticipation of Skilled Care FINAL REVIEWER: FINAL REVIEW DATE: DCP Focus Questions & Answers DCP Screen QUESTION: ANSWER High Risk Factors: : Polypharmacy (greater than 10 meds) DCP Evaluation QUESTION: ANSWER Patient and/or caregiver agree upon recommended discharge plan? : Yes Family / Caregiver's ability to cope with chronic illness: : b. Minimal (occasionally not dependable to meet pt's. needs, can meet pt's. basic ADL's) Patient's current cognitive status: : Intermittently confused / memory changes Patient's ability to cope with chronic illness : a. Adequate (0-3 ED visits in 6 mos., adequate financial resources, attends scheduled appts.) Does the patient have the ability to pay for or attain post discharge needs / services? : Yes Functional screen assessment: : New onset in weakness or paralysis Physical Status: : Mobility impaired Alternate discharge plan (if recommended plan not agreed upon by patient and/or caregiver): : HOME WITH HOME HEALTH Is there a likelihood that the patient will require additional services to return to the preadmission environment? : Yes Living Arrangements: : Home Alone with Support Patient with capacity for self-care or can be cared for in same environment as prior to hospitalization? : Yes Living arrangements comments: : home alone HANNAH ([phone]) EMERGENCY CONTACT Baseline cognitive status: : Intermittently confused / memory changes Baseline cognitive status: : *Oriented to person, place, situation, time and present Pharmacy name(s): : [facility] Planned post hospital services available for patient? : Yes Does Patient have transportation to get home and to follow-up medical appointments when discharged from the hospital? : Yes Planned post hospital services covered by insurance plan? : Yes Comments: : HANNAH/AMARJIT TRANSPRTATION Would patient like to participate in any Care Coordination programs (if applicable): : Not applicable Does the patient have electricity at home? : Yes Does the patient have running water in their house? : Yes Equipment in use: : [employer] agency name and contact information: : HANNAH [phone] Mental health screen: : Currently under the care of mental health provider Mental health provider name and contact information: : [facility] Psychosocial status: : Adult with cognitive limitations Resources / Services in place: : [facility] agency on aging DCP Re-evaluation QUESTION: ANSWER Would patient like to participate in any Care Coordination programs (if applicable): : Not applicable PATIENT: LANDON HSU ENCOUNTER: [id number] MEDICAL RECORD#: [id number] ADMISSION DATE: 10/05/2020 DISCHARGE DATE: ATTENDING MD: LLOYD MORELAND : AGE: 65 MARITAL STATUS: S DC PLAN ID: [id number] FACILITY: [facility] PRINTED ON: 10/24/20 10:45 CT All edits/amendments must be made on the electronic document DICTATION DATE: 10/24/201044 SELVAGE MACHINE OPERATOR: ANDREW 10/24/20 1045 RPT#: [id number] DC DATE: STATUS: ADM IN [facility] [address] [place] [address] END OF REPORT
--- NOTE | 2020-10-24 11:11 | MORECARE ---
CASE MANAGEMENT DISCHARGE SUMMARY PATIENT: LANDON HSU UNIT: [id number] ADM DATE: 10/05/20 AGE: 65 : 57 SEX: M ROOM/BED: D.2206 AUTHOR: FLACO,DOC PHYSICIAN: REFERRING PHYSICIAN: LLOYD HORTON MD DATE OF SERVICE: 10/24/20 Case Management Discharge Planning Summary COMMENTS ENTERED DATE: 10/24/20 10:59 CT COMMENT TYPE: Discharge Planning REVIEWER: Brisa Henriquez PER [facility] HE IS CURRENT WITH THEM ENTERED DATE: 10/24/20 8:01 CT COMMENT TYPE: Discharge Planning REVIEWER: Brisa Henriquez REFERRAL SENT TO [facility] TO SEE IF THEY ARE IN NETWORK ENTERED DATE: 10/24/20 7:32 CT COMMENT TYPE: Discharge Planning REVIEWER: Brisa Henriquez received a call yesterday evening and was told he was denied inpatient rehab, will set him up with home health ENTERED DATE: 10/23/20 13:35 CT COMMENT TYPE: Discharge Planning REVIEWER: Brisa Henriquez CM met with patient to complete initial dc planning assessment. CM educated patient on the CM role and verbal consent given by patient to complete assessment. Patient lives at home by himself where he states he tries the best he can to be independent with his care. It is very hard to get answers from him, his memory is not the best and he is having a hard time answering some of my questions. He lives by himself, he has an aide who comes in - to help clean his home. His PCP is Shelli Maloney and uses [facility]. He said that his friends take him to get groceries. He uses the [employer] to get him to the MD appointments. He knows who to call to set that up. He has a walker at home that he uses. He denies any other DME at his home. He said he goes to [facility] [employer] [facility] daily. On his white board Hannah ( [phone]) is the one who will take him home. I called Hannah to try to get more information but I did not get an answer. She is a nurse with [facility] [employer] [facility], I left a message for her to call me back.. We are currently waiting for inpatient rehab for auth. If he does not get auth he would like to have home health and he did not care of what company to use. YISEL signed. At discharge patient plans to return and feels this is a safe discharge. CM discussed availability of home health, rehab services, and medical equipment. Patient denied known discharge needs at this time. CM will continue to follow and will assist as needed with dc plans/needs. DCP REVIEW SUMMARY ANTICIPATED D/C DATE: EXPECTED LOS : CASE STATUS: DCP Initiated INITIAL REVIEW: 10/04/2020 INITIAL REVIEWER: Brisa Henriquez FINAL DISCHARGE DISPOSITION: 06 : Discharged/Trans to Home Under Care of Organized Home Health Service in Anticipation of Skilled Care FINAL REVIEWER: FINAL REVIEW DATE: DCP Focus Questions & Answers DCP Screen QUESTION: ANSWER High Risk Factors: : Polypharmacy (greater than 10 meds) DCP Evaluation QUESTION: ANSWER Patient and/or caregiver agree upon recommended discharge plan? : Yes Family / Caregiver's ability to cope with chronic illness: : b. Minimal (occasionally not dependable to meet pt's. needs, can meet pt's. basic ADL's) Patient's current cognitive status: : Intermittently confused / memory changes Patient's ability to cope with chronic illness : a. Adequate (0-3 ED visits in 6 mos., adequate financial resources, attends scheduled appts.) Does the patient have the ability to pay for or attain post discharge needs / services? : Yes Functional screen assessment: : New onset in weakness or paralysis Physical Status: : Mobility impaired Alternate discharge plan (if recommended plan not agreed upon by patient and/or caregiver): : HOME WITH HOME HEALTH Is there a likelihood that the patient will require additional services to return to the preadmission environment? : Yes Living Arrangements: : Home Alone with Support Patient with capacity for self-care or can be cared for in same environment as prior to hospitalization? : Yes Living arrangements comments: : home alone HANNAH ([phone]) EMERGENCY CONTACT Baseline cognitive status: : Intermittently confused / memory changes Baseline cognitive status: : *Oriented to person, place, situation, time and present Pharmacy name(s): : [facility]? [facility] Planned post hospital services available for patient? : Yes Does Patient have transportation to get home and to follow-up medical appointments when discharged from the hospital? : Yes Planned post hospital services covered by insurance plan? : Yes Comments: : HANNAH/AMARJIT TRANSPRTATION Would patient like to participate in any Care Coordination programs (if applicable): : Not applicable Does the patient have electricity at home? : Yes Does the patient have running water in their house? : Yes Equipment in use: : [employer] agency name and contact information: : HANNAH [phone] Mental health screen: : Currently under the care of mental health provider Mental health provider name and contact information: : [facility] Psychosocial status: : Adult with cognitive limitations Resources / Services in place: : [facility] on [facility] DCP Re-evaluation QUESTION: ANSWER Would patient like to participate in any Care Coordination programs (if applicable): : Not applicable PATIENT: LANDON HSU ENCOUNTER: [id number] MEDICAL RECORD#: [id number] ADMISSION DATE: 10/05/2020 DISCHARGE DATE: ATTENDING MD: LLOYD MORELAND : AGE: 65 MARITAL STATUS: S DC PLAN ID: [id number] FACILITY: [facility] PRINTED ON: 10/24/20 11:11 CT All edits/amendments must be made on the electronic document DICTATION DATE: 10/24/20 1111 MATERIAL LIAISON: ANDREW 10/24/20 1111 RPT#: [id number] DC DATE: STATUS: ADM IN [facility] [address] [place] [address] END OF REPORT
--- NOTE | 2020-10-24 11:28 | NUR ---
DISCHARGE INSTRUCTIONS,STATES UNDERSTANDING. PATIENT IS WAITING ON RIDE FOR TRANSPORT HOME.
--- NOTE | 2020-10-24 12:00 | MORECARE ---
CASE MANAGEMENT DISCHARGE SUMMARY PATIENT: LANDON HSU UNIT: [id number] ADM DATE: 10/05/20 AGE: 65 : 57 SEX: M ROOM/BED: D.2206 AUTHOR: FLACO,DOC PHYSICIAN: REFERRING PHYSICIAN: LLOYD HORTON MD DATE OF SERVICE: 10/24/20 Case Management Discharge Planning Summary COMMENTS ENTERED DATE: 10/24/20 11:54 CT COMMENT TYPE: Discharge Planning REVIEWER: Brisa Henriquez THE TAXI COST IS $8.00 AND WILL PAY FOR IT DANE WILL BE DELIVERING HIS NEBULIZER TO THE HOSPITAL AND THE HANNAH WILL MEET THE PATIENT AT HIS HOME AT 1430 ENTERED DATE: 10/24/20 11:38 CT COMMENT TYPE: Discharge Planning REVIEWER: Brisa Henriquez I SPOKE WITH HANNAH THE PATIENT'S NURSE WITH THE [employer] SHE STATED THAT SHE IS THE ONE WHO HELPS WITH HIS MEDICATIONS. SHE STATED THAT HE HAS HELP WITH SOMEONE TAKING HIM SHOPPING AND A CLEANING LADY AND PHYSICAL THERAPY WHO COMES TWICE A WEEK. WILL PROVIDE A TAXI FOR HIM TO GET HOME AND HANNAH WILL MEET HIM AT HIS APARTMENT AT 1430. SHE WILL GO OVER HIS MEDICATIONS WITH HIM AND GET HIS WALKER FOR HIM TO GET IN THE HOME SAFELY. HE IS CURRENT WITH [facility] AND I WILL SEND CLINICALS FOR THEM ENTERED DATE: 10/24/20 10:59 CT COMMENT TYPE: Discharge Planning REVIEWER: Brisa Henriquez PER JEREMY WITH CARE HE IS CURRENT WITH THEM ENTERED DATE: 10/24/20 8:01 CT COMMENT TYPE: Discharge Planning REVIEWER: Brisa Henriquez REFERRAL SENT TO [facility] TO SEE IF THEY ARE IN NETWORK ENTERED DATE: 10/24/20 7:32 CT COMMENT TYPE: Discharge Planning REVIEWER: Brisa Henriquez received a call yesterday evening and was told he was denied inpatient rehab, will set him up with home health ENTERED DATE: 10/23/20 13:35 CT COMMENT TYPE: Discharge Planning REVIEWER: Brisa Henriquez CM met with patient to complete initial dc planning assessment. CM educated patient on the CM role and verbal consent given by patient to complete assessment. Patient lives at home by himself where he states he tries the best he can to be independent with his care. It is very hard to get answers from him, his memory is not the best and he is having a hard time answering some of my questions. He lives by himself, he has an aide who comes in to help clean his home. His PCP is Shelli Maloney and [facility]. He said that his friends take him to get groceries. He uses the [employer] to get him to the MD appointments. He knows who to call to set that up. He has a walker at home that he uses. He denies any other DME at his home. He said he goes to [facility] daily. On his white board Hannah ( [phone]) is the one who will take him home. I called Hannah to try to get more information but I did not get an answer. She is a nurse with [facility] [employer] and [employer], I left a message for her to call me back.. We are currently waiting for inpatient rehab for auth. If he does not get auth he would like to have home health and he did not care of what company to use. YISEL signed. At discharge patient plans to return and feels this is a safe discharge. CM discussed availability of home health, rehab services, and medical equipment. Patient denied known discharge needs at this time. CM will continue to follow and will assist as needed with dc plans/needs. DCP REVIEW SUMMARY ANTICIPATED D/C DATE: EXPECTED LOS : CASE STATUS: DCP Initiated INITIAL REVIEW: 10/04/2020 INITIAL REVIEWER: Brisa Henriquez FINAL DISCHARGE DISPOSITION: 06 : Discharged/Trans to Home Under Care of Organized Home Health Service in Anticipation of Skilled Care FINAL REVIEWER: FINAL REVIEW DATE: DCP Focus Questions & Answers DCP Screen QUESTION: ANSWER High Risk Factors: : Polypharmacy (greater than 10 meds) DCP Evaluation QUESTION: ANSWER Patient and/or caregiver agree upon recommended discharge plan? : Yes Family / Caregiver's ability to cope with chronic illness: : b. Minimal (occasionally not dependable to meet pt's. needs, can meet pt's. basic ADL's) Patient's current cognitive status: : Intermittently confused / memory changes Patient's ability to cope with chronic illness : a. Adequate (0-3 ED visits in 6 mos., adequate financial resources, attends scheduled appts.) Does the patient have the ability to pay for or attain post discharge needs / services? : Yes Functional screen assessment: : New onset in weakness or paralysis Physical Status: : Mobility impaired Alternate discharge plan (if recommended plan not agreed upon by patient and/or caregiver): : HOME WITH HOME HEALTH Is there a likelihood that the patient will require additional services to return to the preadmission environment? : Yes Living Arrangements: : Home Alone with Support Patient with capacity for self-care or can be cared for in same environment as prior to hospitalization? : Yes Living arrangements comments: : home alone HANNAH ([phone]) EMERGENCY CONTACT Baseline cognitive status: : Intermittently confused / memory changes Baseline cognitive status: : *Oriented to person, place, situation, time and present Pharmacy name(s): : [facility] Planned post hospital services available for patient? : Yes Does Patient have transportation to get home and to follow-up medical appointments when discharged from the hospital? : Yes Planned post hospital services covered by insurance plan? : Yes Comments: : HANNAH/[facility] Would patient like to participate in any Care Coordination programs (if applicable): : Not applicable Does the patient have electricity at home? : Yes Does the patient have running water in their house? : Yes Equipment in use: : Walker [employer] agency name and contact information: : HANNAH [phone] Mental health screen: : Currently under the care of mental health provider Mental health provider name and contact information: : [facility] Psychosocial status: : Adult with cognitive limitations Resources / Services in place: : [facility] agency on aging DCP Re-evaluation QUESTION: ANSWER Would patient like to participate in any Care Coordination programs (if applicable): : Not applicable PATIENT: LANDON HSU ENCOUNTER: [id number] MEDICAL RECORD#: [id number] ADMISSION DATE: 10/05/2020 DISCHARGE DATE: ATTENDING MD: LLOYD MORELAND : AGE: 65 MARITAL STATUS: S DC PLAN ID: [id number] FACILITY: [facility] PRINTED ON: 10/24/20 11:59 CT All edits/amendments must be made on the electronic document DICTATION DATE: 10/24/201158 WEIGHER AND CHARGER: ANDREW 10/24/20 1159 RPT#: [id number] DC DATE: STATUS: ADM IN [facility] [address] [place] [address] END OF REPORT
[2020-10-24 12:11] LABS: OVA + PARASITE EXAM Final report (())
--- NOTE | 2020-10-24 14:17 | NUR ---
CALL TO [employer] FOR PICKUP [phone]. THE TAXI SHOULD BE HERE IN 10-15 MIN .
--- NOTE | 2020-10-24 14:19 | NUR ---
VIJAYA CERVANTES TO TAKE PATIENT OUT TO ER FOR PICKUP.
--- NOTE | 2020-10-24 14:25 | NUR ---
LEFT UNIT VIA WHEELCHAIR
== END 2020-10-24 14:34 | disposition home health service (06) | DRG 177 ==
LOC: D.ER 18:00 → D.M2 19:55 → OBSVTIME 19:55 → D.M2 19:55 → D.CVICU 10-05 14:54 → D.MS 10-05 16:15
PROVIDERS: Family Medicine; Internal Medicine Pulmonary Disease; Student in an Organized Health Care Education/Training Program; Surgery; ADMIT Emergency Medicine; ATTEND Emergency Medicine
PROC: 0D758ZZ Dilation of Esophagus, Via Natural or Artificial Opening Endoscopic (ICD-10-PCS; 2020-10-05)
PROC: 0DB78ZX Excision of Stomach, Pylorus, Via Natural or Artificial Opening Endoscopic, Diagnostic (ICD-10-PCS; principal; 2020-10-05 12:30)
PROC: 0B9B8ZX Drainage of Left Lower Lobe Bronchus, Via Natural or Artificial Opening Endoscopic, Diagnostic (ICD-10-PCS; 2020-10-06)
DX: J69.0 Pneumonitis due to inhalation of food and vomit (principal); J96.02 Acute respiratory failure with hypercapnia; J96.01 Acute respiratory failure with hypoxia; J44.1 Chronic obstructive pulmonary disease with (acute) exacerbation; N17.9 Acute kidney failure, unspecified; J90 Pleural effusion, not elsewhere classified; K22.0 Achalasia of cardia; T18.128A Food in esophagus causing other injury, initial encounter; D72.829 Elevated white blood cell count, unspecified; D64.9 Anemia, unspecified; I10 Essential (primary) hypertension; R00.0 Tachycardia, unspecified; F17.200 Nicotine dependence, unspecified, uncomplicated; F31.9 Bipolar disorder, unspecified; F20.9 Schizophrenia, unspecified; M19.90 Unspecified osteoarthritis, unspecified site; K22.9 Disease of esophagus, unspecified; R13.10 Dysphagia, unspecified; K80.20 Calculus of gallbladder without cholecystitis without obstruction

== ENCOUNTER 2020-10-24 23:41 | Inpatient (IN) | payer OTHER ==
[~2020-10-24] VITALS: Ht 177.8 cm; Wt 62.0 kg
[~2020-10-24 23:41] MED LIST: AMBIEN5 MG PO; ATROVENT 0.02%2.5 ML UPD; BACLOFEN10 MG PO; CLARITIN 10 MG10 MG PO; COMBIVENT RESPIM4 GM INH; FLAGYL 500500 MG/100 IV; FLOMAX0.4 MG PO; FLORAJEN DIGES1 EACH PO; HYDRALAZINE20 MG/ML IV; LEVOFLOXAC500 MG/100 IV; LOPRESSOR I5 MG/5 ML IV; LOVENOX40 MG/0.4 SC; MIRALAX17 GM PO; NICODERM CQ1 EAC3 TRANSDERM; NORVASC5 MG PO; PROTONIX40 MG PO; PULMICORT0.5 MG/21 UPD; QUESTRAN PACKET PO; THERMOTABS 1 GM1 GM PO; VISTARIL25 MG PO; VITAMIN D325 MC1 PO; WELLBUTRIN SR150 MG PO; Xopenex 0.63 MG INH INH; ZYPREXA10 MG PO; [UNRECOGNIZED DRUG - OTHER]
[2020-10-25 00:17] LABS: CHLORIDE - SERUM 95 mmol/L (98-107); GLUCOSE 109 mg/dL (74-106); POTASSIUM - SERUM 4.2 mmol/L (3.5-5.1); SODIUM 128 mmol/L (136-145); eGFR NON AFRICAN AMERICAN 54 mL/min (90-120)
[2020-10-25 00:22] LABS: BASOPHILS 0.3 % (0-2); EOSINOPHILS 0.3 % (0-7); HEMATOCRIT 29.4 % (42.0-54.0); HEMOGLOBIN 9.6 g/dL (13.5-17.5); MCH 28.8 pg (26.0-34.0); MCHC 32.8 g/dL (31.0-37.0); MEAN PLATELET VOLUME 6.8 fL (7.4-10.4); MONOCYTES 6.3 % (2-11); NEUTROPHILS 87.1 % (40-80); PLATELET COUNT 341 10x3/uL (130-400); RBC 3.35 10x6/uL (4.20-6.10); RDW 15.2 % (11.5-14.5)
[2020-10-25 00:24] LABS: APTT 32.5 SECONDS (22.8-39.4); INR 1.19 (0.85-1.17)
[2020-10-25 00:26] LABS: CALC OSMOLALITY 259 mosm/kg (275-300); CREATININE - SERUM 1.4 mg/dL (0.6-1.3); UREA NITROGEN 19 mg/dL (7-18)
[2020-10-25 00:27] LABS: WBC 12.5 10x3/uL (4.8-10.8)
[2020-10-25 00:32] LABS: ALBUMIN 2.5 g/dL (3.4-5.0); ALKALINE PHOSPHATASE 41 U/L (30-120); ALT (SGPT) 14 U/L (10-68); BILIRUBIN - TOTAL 0.32 mg/dL (0.2-1.3); CKMB 0.7 U/L (0.0-3.6); CREATINE KINASE 75 UL (21-232); MAGNESIUM - SERUM 1.6 mg/dL (1.8-2.4); TROPONIN-I < 0.017 ng/mL (0.000-0.060)
[2020-10-25 01:20] VITALS: BP 134/77
--- NOTE | 2020-10-25 01:42 | NUR ---
PT GIVEN APPLE JUICE TO DRINK. DENIES FURTHER NEEDS AT THIS TIME. CALL LIGHT IN REACH.
[2020-10-25 04:28] VITALS: BP 128/83; BMI 21.2
[2020-10-25 05:12] LABS: BILIRUBIN NEGATIVE (NEGATIVE); KETONE NEGATIVE (NEGATIVE); NITRITE NEGATIVE (NEGATIVE); UROBILINOGEN NORMAL mg/dL (< 2)
--- NOTE | 2020-10-25 07:15 | NUR ---
RECEIVE SHIFT REPORT. RESTING IN BED WITH EYES CLOSED. NO S/S OF DISTRESS PRESENT AT THIS TIME. CONTINUE POC AND SAFETY PRECAUTIONS. BED ALARM ON. CALL LIGHT IN REACH.
[2020-10-25 09:09] LABS: HEMATOCRIT 29.1 % (42.0-54.0); HEMOGLOBIN 9.7 g/dL (13.5-17.5); MCH 29.3 pg (26.0-34.0); MCHC 33.2 g/dL (31.0-37.0); MCV 88.3 fL (80.0-100.0); MEAN PLATELET VOLUME 6.6 fL (7.4-10.4); PLATELET COUNT 313 10x3/uL (130-400); RDW 15.1 % (11.5-14.5)
[2020-10-25 09:16] LABS: WBC 7.7 10x3/uL (4.8-10.8)
[2020-10-25 09:20] VITALS: BP 131/69
[2020-10-25 09:41] LABS: ANISOCYTOSIS 1+; EOSINOPHILS 3 % (0-7); LYMPHOCYTES 12 % (15-50); MONOCYTES 2 % (2-11); NEUTROPHILS 75 % (40-80); PLATELET ESTIMATE NORMAL
[2020-10-25 12:42] VITALS: BP 140/86
--- NOTE | 2020-10-25 13:00 | NUR ---
PATIENT HAS BEEN TO BATHROOM AND BACK TO BED WITH ASSIST MULTIPLE TIMES SINCE EARLY THIS MORNING ON AM SHIFT. HAVING DIARRHEA. THANIA STARTED TODAY. INCONTINENT AT TIMES. ABLE TO USE CALL LIGHT FOR HELP.
[2020-10-25 13:33] VITALS: Ht 177.8 cm; Wt 62.0 kg
[2020-10-25 16:57] VITALS: BP 145/85
--- NOTE | 2020-10-25 17:13 | NUR ---
PATIENT COMPLAINING OF STOMACH HURTING. HAS BEEN HAVING DIARRHEA ALL DAY AND STATES HE HAS URINATED A LITTLE. DISTENDED AND TENDER. BLADDER SCAN SHOWER 999+ML IN BLADDER. IN AND OUT CATH PERFORMED WITH 1000ML OUT.
--- NOTE | 2020-10-25 19:55 | NUR ---
INITIAL ROUNDS AND ASSESSMENT COMPLETED. PT RESTING IN BED. ALERT/ORIENTED.101 ST PER TELEMETRY. NONLABORED RESPIRATIONS ON ROOM AIR. IVF NS @ 150ML/HR INFUSING TO LEFT HAND. BED ALARM IN PLACE/FALL PRECAUTIONS. CALL LIGHT IN REACH.
[2020-10-25 20:45] VITALS: BP 137/80
--- NOTE | 2020-10-25 22:31 | NUR ---
ALL BEDTIME MEDS GIVEN. PT RESTING WITH NO DISTRESS. CALL LIGHT IN REACH.
--- NOTE | 2020-10-26 00:07 | NUR ---
PT RESTING WITH NO DISTRESS. CALL LIGHT IN REACH.
[2020-10-26 00:10] VITALS: BP 126/78
[2020-10-26 05:13] VITALS: BP 127/78
[2020-10-26 06:49] LABS: BASOPHILS 0.6 % (0-2); EOSINOPHILS 2.2 % (0-7); HEMATOCRIT 27.9 % (42.0-54.0); HEMOGLOBIN 9.4 g/dL (13.5-17.5); LYMPHOCYTES 12.8 % (15-50); MCH 29.5 pg (26.0-34.0); MCHC 33.7 g/dL (31.0-37.0); MCV 87.7 fL (80.0-100.0); MEAN PLATELET VOLUME 6.8 fL (7.4-10.4); MONOCYTES 5.9 % (2-11); NEUTROPHILS 78.5 % (40-80); PLATELET COUNT 319 10x3/uL (130-400); RBC 3.18 10x6/uL (4.20-6.10); RDW 15.1 % (11.5-14.5); WBC 9.1 10x3/uL (4.8-10.8)
[2020-10-26 07:16] LABS: ALBUMIN 2.2 g/dL (3.4-5.0); ALKALINE PHOSPHATASE 41 U/L (30-120); ALT (SGPT) 12 U/L (10-68); BILIRUBIN - TOTAL 0.29 mg/dL (0.2-1.3); CALCIUM 7.3 mg/dL (8.5-10.1); CARBON DIOXIDE 21.9 mmol/L (21.0-32.0); CHLORIDE - SERUM 102 mmol/L (98-107); GLUCOSE 74 mg/dL (74-106); MAGNESIUM - SERUM 1.6 mg/dL (1.8-2.4); POTASSIUM - SERUM 4.2 mmol/L (3.5-5.1); PROTEIN - SERUM 4.3 g/dL (6.4-8.2); SODIUM 133 mmol/L (136-145)
[2020-10-26 07:52] VITALS: BP 113/72
[2020-10-26 07:56] LABS: CALC OSMOLALITY 263 mosm/kg (275-300); CREATININE - SERUM 0.8 mg/dL (0.6-1.3); UREA NITROGEN 9 mg/dL (7-18); eGFR NON AFRICAN AMERICAN > 90 mL/min (90-120)
--- NOTE | 2020-10-26 11:37 | NUR ---
REHAB PRESCREENING Rehab referral received and chart reviewed. This patient is known by rehab as we worked to received insurance authorizaiton for acute inpatient rehab from his insurance provider. He was denied for lack of medical necessity on 10/23/20. Rehab will await OT evaluation and plan to submit for auth again at that time as patient was a failed discharge to home. Thank you for this referral! Zoey Oconnor, [employer] TECHNICIAN Rehab PD
--- NOTE | 2020-10-26 14:58 | NUR ---
HELPED PT TO BATHROOM AND BACK TO BED. CALL LIGHT IN REACH, DONAVAN ALARM ON.
[2020-10-26 15:47] VITALS: BP 151/90
[2020-10-26 20:00] VITALS: BP 121/77
[2020-10-26 23:59] VITALS: BP 124/77
[2020-10-27 06:02] LABS: BASOPHILS 0.7 % (0-2); EOSINOPHILS 2.1 % (0-7); HEMATOCRIT 27.2 % (42.0-54.0); MCV 87.7 fL (80.0-100.0); MEAN PLATELET VOLUME 6.5 fL (7.4-10.4); MONOCYTES 4.8 % (2-11); NEUTROPHILS 79.4 % (40-80); PLATELET COUNT 339 10x3/uL (130-400); RBC 3.11 10x6/uL (4.20-6.10); RDW 15.4 % (11.5-14.5)
[2020-10-27 06:03] VITALS: BP 119/71
[2020-10-27 08:01] LABS: ALBUMIN 2.2 g/dL (3.4-5.0); ALKALINE PHOSPHATASE 42 U/L (30-120); ALT (SGPT) 15 U/L (10-68); BILIRUBIN - TOTAL 0.34 mg/dL (0.2-1.3); CALC OSMOLALITY 262 mosm/kg (275-300); CALCIUM 7.8 mg/dL (8.5-10.1); CARBON DIOXIDE 21.4 mmol/L (21.0-32.0); CHLORIDE - SERUM 103 mmol/L (98-107); CREATININE - SERUM 0.8 mg/dL (0.6-1.3); GLUCOSE 75 mg/dL (74-106); MAGNESIUM - SERUM 1.7 mg/dL (1.8-2.4); POTASSIUM - SERUM 3.9 mmol/L (3.5-5.1); PROTEIN - SERUM 4.8 g/dL (6.4-8.2); SODIUM 133 mmol/L (136-145); eGFR NON AFRICAN AMERICAN > 90 mL/min (90-120)
[2020-10-27 08:07] LABS: UREA NITROGEN 6 mg/dL (7-18)
[2020-10-27 08:13] VITALS: BP 138/84
--- NOTE | 2020-10-27 08:30 | NUR ---
AM MEDS GIVEN AT THIS TIME. PT A/O X4, RESP EVEN AND NONLABORED ON RA. LT HAND IV INFUSING NS AT 100CC/HR. PT DENIES ANY NEEDS AT THIS TIME. CALL LIGHT IN REACH, DONAVAN ALARM ON, NAD NOTED, WILL CONTINUE PLAN OF CARE.
--- NOTE | 2020-10-27 10:45 | MORECARE ---
CASE MANAGEMENT DISCHARGE SUMMARY PATIENT: LANDON HSU UNIT: [id number] ADM DATE: 10/25/20 AGE: 65 : 57 SEX: M ROOM/BED: D.5998 AUTHOR: JAYLA SAM PHYSICIAN: REFERRING PHYSICIAN: CHIDI CURTIS MD DATE OF SERVICE: 10/27/20 Case Management Discharge Planning Summary COMMENTS ENTERED DATE: 10/27/20 10:38 CT COMMENT TYPE: Discharge Planning REVIEWER: García Kline CM met with patient to complete DC plan and to evaluate needs. Patient stated that he readmitted because he was dehydrated. Patient stated that he was unable to obtain his medications after last discharge and unfortunately was not able to keep his follow up appointment. Patient stated that he followed the dc instructions given to him. It appears that this readmission was due to a new condition of dehydration. Patient lives alone with weak support but identifies his gómez Ramsey, , as his person to notify. Patient stated that his home is safe and has electricity and running water. Patient stated that he has no problems paying for medications and he fills his medications at [facility]. Patient stated that his primary care physician is Dr. Angulo. CM discussed availability of home health, rehab services, and medical equipment. Patient declined HHS, SNF, and DME, but would like IPR services through [facility]. YISEL for [facility] Inpatient rehab signed and placed on chart. Patient stated that he has fallen many times at home despite having walkers. Patient voiced no other needs at this time and is satisfied with DC plan. Transportation provider at discharge will be with person. DC IMM delivered, explained, signed by the patient, and placed in chart. Signed form also left with the patient. CM will continue to follow and will assist as needed with dc plans/needs DCP REVIEW SUMMARY ANTICIPATED D/C DATE: EXPECTED LOS : CASE STATUS: DCP Initiated INITIAL REVIEW: 10/25/2020 INITIAL REVIEWER: García Kline FINAL DISCHARGE DISPOSITION: : FINAL REVIEWER: FINAL REVIEW DATE: DCP Focus Questions & Answers DCP Evaluation QUESTION: ANSWER Patient and/or caregiver agree upon recommended discharge plan? : Yes Family / Caregiver's ability to cope with chronic illness: : b. Minimal (occasionally not dependable to meet pt's. needs, can meet pt's. basic ADL's) Patient's current cognitive status: : *Oriented to person, place, situation, time and present Patient's ability to cope with chronic illness : d. No chronic illness Patient gives permission to discuss discharge plans with: (name, relationship and number) : friend, Reji Ramsey, Does the patient have the ability to pay for or attain post discharge needs / services? : Yes Functional screen assessment: : Basic needs can adequately be met by self Family / Caregiver's ability to cope with chronic illness: : b. Minimal (occasionally not dependable to meet pt's. needs, can meet pt's. basic ADL's) Physical Status: : Independent with ADL's Equipment needed for post hospitalization: : None Is there a likelihood that the patient will require additional services to return to the preadmission environment? : Yes Living Arrangements: : Home Alone with Support Patient with capacity for self-care or can be cared for in same environment as prior to hospitalization? : No Baseline cognitive status: : *Oriented to person, place, situation, time and present Physical environment modification needed / anticipated for discharge: : No Medication Management: : Patient states can read and understand medication labels Medication Management: : Patient states can afford medications Pharmacy name(s): : [facility]. Does Patient have transportation to get home and to follow-up medical appointments when discharged from the hospital? : Yes Would patient like to participate in any Care Coordination programs (if applicable): : Not applicable Does the patient have electricity at home? : Yes Does the patient have running water in their house? : Yes Equipment in use: : Walker - Rolling Mental health screen: : No mental health history DCP Re-evaluation QUESTION: ANSWER Would patient like to participate in any Care Coordination programs (if applicable): : Not applicable PATIENT: LANDON HSU ENCOUNTER: [id number] MEDICAL RECORD#: [id number] ADMISSION DATE: 10/25/2020 DISCHARGE DATE: ATTENDING MD: CHIDI WORLEY : AGE: 65 MARITAL STATUS: S DC PLAN ID: [id number] FACILITY: [facility] PRINTED ON: 10/27/20 10:45 CT All edits/amendments must be made on the electronic document DICTATION DATE: 10/27/201044 MEDICAL CODING SPECIALIST: ANDREW 10/27/201044 RPT#: [id number] DC DATE: STATUS: ADM IN [facility] [address] [place] [address] END OF REPORT
[2020-10-27 11:44] VITALS: BP 138/83
--- NOTE | 2020-10-27 13:17 | NUR ---
HELPED PT TO BATHROOM AND BACK TO BED. ALL NEEDS MET, CALL LIGHT IN REACH.
[2020-10-27 16:03] VITALS: BP 138/88
--- NOTE | 2020-10-27 16:56 | NUR ---
HELPED PT TO BATHROOM AND BACK TO BED. DONAVAN ALARM ON, CALL LIGHT IN REACH.
[2020-10-27 19:00] VITALS: BP 157/91
--- NOTE | 2020-10-27 22:40 | NUR ---
PT COMPLAINS OF PAIN IN LOWER ABDOMEN. LOWER ABDOMEN APPEARS DISTENDED AND IS FIRM TO TOUCH. IN REPORT, DAY NURSE STATES THIS HAS BEEN AN ONGOING ISSUE. NICANOR HEBERT PAGED FLORES ORDERED. 18FR FLORES INSERTED W/O ISSUE PER STERILE PROTOCAL. PT STATES HE IMMEDIATLY FEELS INSTANT RELIEF. WILL CONTINUE TO MONITOR.
--- NOTE | 2020-10-27 23:41 | NUR ---
PT FLORES EMPTIED AT 3600ML. WILL CONTINUE TO MONITOR.
[2020-10-28] VITALS: BP 135/79
[2020-10-28 04:00] VITALS: BP 109/63
[2020-10-28 06:58] LABS: BASOPHILS 0.3 % (0-2); EOSINOPHILS 1.2 % (0-7); HEMATOCRIT 25.3 % (42.0-54.0); HEMOGLOBIN 8.4 g/dL (13.5-17.5); LYMPHOCYTES 11.4 % (15-50); MCH 29.3 pg (26.0-34.0); MCHC 33.1 g/dL (31.0-37.0); MCV 88.5 fL (80.0-100.0); MEAN PLATELET VOLUME 6.6 fL (7.4-10.4); MONOCYTES 4.5 % (2-11); NEUTROPHILS 82.6 % (40-80); PLATELET COUNT 337 10x3/uL (130-400); RBC 2.86 10x6/uL (4.20-6.10); RDW 15.3 % (11.5-14.5); WBC 11.3 10x3/uL (4.8-10.8)
[2020-10-28 07:35] LABS: ALKALINE PHOSPHATASE 41 U/L (30-120); ALT (SGPT) 14 U/L (10-68); BILIRUBIN - TOTAL 0.32 mg/dL (0.2-1.3); CALC OSMOLALITY 265 mosm/kg (275-300); CALCIUM 7.9 mg/dL (8.5-10.1); CARBON DIOXIDE 22.9 mmol/L (21.0-32.0); CHLORIDE - SERUM 103 mmol/L (98-107); CREATININE - SERUM 0.9 mg/dL (0.6-1.3); GLUCOSE 81 mg/dL (74-106); MAGNESIUM - SERUM 1.7 mg/dL (1.8-2.4); POTASSIUM - SERUM 4.2 mmol/L (3.5-5.1); PROTEIN - SERUM 4.1 g/dL (6.4-8.2); SODIUM 134 mmol/L (136-145); eGFR NON AFRICAN AMERICAN 90 mL/min (90-120)
[2020-10-28 07:37] LABS: UREA NITROGEN 10 mg/dL (7-18)
[2020-10-28 07:45] VITALS: BP 105/61
--- NOTE | 2020-10-28 08:00 | NUR ---
PT RECEIVED AWAKE AND ALERT IN BED WATCHING TV. MARK NOTED WITH LIGHT YELLOW URINE. TELEMETRY IN USE. ASSISTED WITH SETTING UP BREAKFAST TRAY. MEDS GIVEN.
[2020-10-28 11:44] VITALS: BP 127/64
--- NOTE | 2020-10-28 13:48 | NUR ---
Nutrition Follow-up: Eating well. ST stan pending. Diet: Full Liquid, Ensure QID PO intake: 100% x 10 meals No new wt; last wt: 148# (10/25) Labs noted: Na 134, Ca 7.9, Mg 1.7, Alb 2.0 Meds noted: Florajen, Questran, Protonix, NS @ 150, electrolyte protocol -Monitor wt. -RD will follow up within 3-4 days.
[2020-10-28 15:37] VITALS: BP 122/65
--- NOTE | 2020-10-28 16:49 | NUR ---
OT NOTE: PT COMPLETED ADL MOB WITH CGA USING RW. PT CUED FOR INCREASED SAFETY WITH ADL MOBILITY. PT COMPLETED HAND HYGIENE AT SINK LEVEL WITH SBA. PT COMPLETED FACE HYGIENE WITH SETUP. PT COMPLETED SITTING BALANCE WITH SBA. CL WITHIN REACH. [phone] HERACLIO CARRERA COTA
[2020-10-28 21:00] VITALS: BP 145/90
[2020-10-29] VITALS: BP 124/71
[2020-10-29 04:00] VITALS: BP 147/80
[2020-10-29 05:11] LABS: BASOPHILS 0.5 % (0-2); EOSINOPHILS 2.7 % (0-7); HEMATOCRIT 23.7 % (42.0-54.0); HEMOGLOBIN 8.1 g/dL (13.5-17.5); LYMPHOCYTES 14.4 % (15-50); MCH 29.5 pg (26.0-34.0); MCV 86.7 fL (80.0-100.0); MEAN PLATELET VOLUME 6.1 fL (7.4-10.4); MONOCYTES 6.4 % (2-11); PLATELET COUNT 310 10x3/uL (130-400); RBC 2.74 10x6/uL (4.20-6.10); RDW 15.5 % (11.5-14.5)
[2020-10-29 05:24] LABS: WBC 7.3 10x3/uL (4.8-10.8)
[2020-10-29 05:38] LABS: ALBUMIN 1.9 g/dL (3.4-5.0); ALKALINE PHOSPHATASE 34 U/L (30-120); BILIRUBIN - TOTAL 0.22 mg/dL (0.2-1.3); CALC OSMOLALITY 267 mosm/kg (275-300); CALCIUM 7.9 mg/dL (8.5-10.1); CHLORIDE - SERUM 102 mmol/L (98-107); CREATININE - SERUM 0.8 mg/dL (0.6-1.3); GLUCOSE 86 mg/dL (74-106); MAGNESIUM - SERUM 1.5 mg/dL (1.8-2.4); POTASSIUM - SERUM 4.1 mmol/L (3.5-5.1); PROTEIN - SERUM 4.4 g/dL (6.4-8.2); SODIUM 135 mmol/L (136-145); UREA NITROGEN 10 mg/dL (7-18); eGFR NON AFRICAN AMERICAN > 90 mL/min (90-120)
[2020-10-29 05:39] LABS: ALT (SGPT) 9 U/L (10-68)
--- NOTE | 2020-10-29 05:53 | NUR ---
I have reviewed this patient and I concur with the Shift Assessment completed by the Licensed Practical Nurse today this shift.
[2020-10-29 08:00] VITALS: BP 134/84
[2020-10-29 16:00] VITALS: BP 126/76
--- NOTE | 2020-10-29 16:24 | NUR ---
OT NOTE: PERFORMED BED MOB WITH SBA; AMB WITH WALKER INTO BATHROOM. TOILETING WITH SBA; SIMPLE GROOMING TASKS WITH SET UP; ABLE TO ESTEBAN AND DOFF SOCKS WITH SET UP. MIN ASSIST WITH THOROUGH CLEANING.. LORENA ROD, OTR/L [phone]
[2020-10-29 21:05] VITALS: BP 131/75
[2020-10-30] VITALS: BP 138/78
[2020-10-30 04:27] VITALS: BP 133/78
[2020-10-30 06:40] LABS: HEMATOCRIT 26.6 % (42.0-54.0); MCH 29.3 pg (26.0-34.0); MCHC 33.8 g/dL (31.0-37.0); MCV 86.9 fL (80.0-100.0); MEAN PLATELET VOLUME 6.2 fL (7.4-10.4); PLATELET COUNT 371 10x3/uL (130-400); RBC 3.06 10x6/uL (4.20-6.10); RDW 15.2 % (11.5-14.5); RETIC 2.11 % (0.45-2.28); WBC 8.4 10x3/uL (4.8-10.8)
[2020-10-30 07:22] LABS: ALBUMIN 2.1 g/dL (3.4-5.0); ALKALINE PHOSPHATASE 39 U/L (30-120); ALT (SGPT) 10 U/L (10-68); BILIRUBIN - TOTAL 0.24 mg/dL (0.2-1.3); CALC OSMOLALITY 266 mosm/kg (275-300); CALCIUM 8.4 mg/dL (8.5-10.1); CARBON DIOXIDE 27.2 mmol/L (21.0-32.0); CHLORIDE - SERUM 99 mmol/L (98-107); CREATININE - SERUM 0.8 mg/dL (0.6-1.3); FERRITIN 242 ng/mL (3-244); GLUCOSE 83 mg/dL (74-106); MAGNESIUM - SERUM 1.7 mg/dL (1.8-2.4); POTASSIUM - SERUM 4.3 mmol/L (3.5-5.1); PROTEIN - SERUM 4.8 g/dL (6.4-8.2); SODIUM 134 mmol/L (136-145); UREA NITROGEN 12 mg/dL (7-18); eGFR NON AFRICAN AMERICAN > 90 mL/min (90-120)
[2020-10-30 07:53] LABS: % SATURATION 33 % (15-55); IRON 41 ug/dl (35-150); TOTAL IRON BIND CAPACITY 122 ug/dl (260-445); UNSAT IRON BIND CAPACITY 81 ug/dl (150-375)
[2020-10-30 09:00] VITALS: BP 126/78
--- NOTE | 2020-10-30 11:14 | MORECARE ---
CASE MANAGEMENT DISCHARGE SUMMARY PATIENT: LANDON HSU UNIT: [id number] ADM DATE: 10/25/20 AGE: 65 : 57 SEX: M ROOM/BED: D.9727 AUTHOR: JAYLA SAM PHYSICIAN: REFERRING PHYSICIAN: CHIDI CURTIS MD DATE OF SERVICE: 10/30/20 Case Management Discharge Planning Summary COMMENTS ENTERED DATE: 10/27/20 10:38 CT COMMENT TYPE: Discharge Planning REVIEWER: García Kline CM met with patient to complete DC plan and to evaluate needs. Patient stated that he readmitted because he was dehydrated. Patient stated that he was unable to obtain his medications after last discharge and unfortunately was not able to keep his follow up appointment. Patient stated that he followed the dc instructions given to him. It appears that this readmission was due to a new condition of dehydration. Patient lives alone with weak support but identifies his gómez Ramsey, , as his person to notify. Patient stated that his home is safe and has electricity and running water. Patient stated that he has no problems paying for medications and he fills his medications at [email or web address]. Patient stated that his primary care physician is Dr. Angulo. CM discussed availability of home health, rehab services, and medical equipment. Patient declined HHS, SNF, and DME, but would like IPR services through [facility]. YISEL for [facility] Inpatient rehab signed and placed on chart. Patient stated that he has fallen many times at home despite having walkers. Patient voiced no other needs at this time and is satisfied with DC plan. Transportation provider at discharge will be with person. DC IMM delivered, explained, signed by the patient, and placed in chart. Signed form also left with the patient. CM will continue to follow and will assist as needed with dc plans/needs DCP REVIEW SUMMARY ANTICIPATED D/C DATE: EXPECTED LOS : CASE STATUS: DCP Initiated INITIAL REVIEW: 10/25/2020 INITIAL REVIEWER: García Kline FINAL DISCHARGE DISPOSITION: : FINAL REVIEWER: FINAL REVIEW DATE: DCP Focus Questions & Answers DCP Evaluation QUESTION: ANSWER Patient gives permission to discuss discharge plans with: (name, relationship and number) : friend, Reji Ramsey, Patient's ability to cope with chronic illness : d. No chronic illness Patient's current cognitive status: : *Oriented to person, place, situation, time and present Family / Caregiver's ability to cope with chronic illness: : b. Minimal (occasionally not dependable to meet pt's. needs, can meet pt's. basic ADL's) Patient and/or caregiver agree upon recommended discharge plan? : Yes Physical Status: : Independent with ADL's Family / Caregiver's ability to cope with chronic illness: : b. Minimal (occasionally not dependable to meet pt's. needs, can meet pt's. basic ADL's) Functional screen assessment: : Basic needs can adequately be met by self Does the patient have the ability to pay for or attain post discharge needs / services? : Yes Living Arrangements: : Home Alone with Support Is there a likelihood that the patient will require additional services to return to the preadmission environment? : Yes Equipment needed for post hospitalization: : None Baseline cognitive status: : *Oriented to person, place, situation, time and present Patient with capacity for self-care or can be cared for in same environment as prior to hospitalization? : No Physical environment modification needed / anticipated for discharge: : No Medication Management: : Patient states can afford medications Medication Management: : Patient states can read and understand medication labels Pharmacy name(s): : [email or web address]. Does Patient have transportation to get home and to follow-up medical appointments when discharged from the hospital? : Yes Would patient like to participate in any Care Coordination programs (if applicable): : Not applicable Does the patient have electricity at home? : Yes Does the patient have running water in their house? : Yes Equipment in use: : Walker - Rolling Mental health screen: : No mental health history DCP Re-evaluation QUESTION: ANSWER Would patient like to participate in any Care Coordination programs (if applicable): : Not applicable PATIENT: LANDON HSU ENCOUNTER: [id number] MEDICAL RECORD#: [id number] ADMISSION DATE: 10/25/2020 DISCHARGE DATE: ATTENDING MD: CHIDI WORLEY : AGE: 65 MARITAL STATUS: S DC PLAN ID: [id number] FACILITY: [facility] PRINTED ON: 10/30/20 11:14 CT All edits/amendments must be made on the electronic document DICTATION DATE: 10/30/201113 FIELD SCOUT: ANDREW 10/30/201113 RPT#: [id number] DC DATE: STATUS: ADM IN [facility] [address] [place] [address] END OF REPORT
--- NOTE | 2020-10-30 11:15 | NUR ---
GT BELT, PATIENT ABLE TO GET HIMSELF UP TO BEDSIDE, STOOD WITH MIN ASST. PATIENT WALKED 750 FEET USING WALKER WITH MIN ASST. SAT IN CHAIR AFTER WALK.
[2020-10-30 11:21] LABS: EOSINOPHILS 3 % (0-7); LYMPHOCYTES 13 % (15-50); MONOCYTES 8 % (2-11); NEUTROPHILS 76 % (40-80); PLATELET ESTIMATE NORMAL
[2020-10-30 15:00] VITALS: BP 126/76
[2020-10-30 20:39] VITALS: BP 130/73
--- NOTE | 2020-10-30 21:12 | MORECARE ---
CASE MANAGEMENT DISCHARGE SUMMARY PATIENT: LANDON HSU UNIT: [id number] ADM DATE: 10/25/20 AGE: 65 : 57 SEX: M ROOM/BED: D.9003 AUTHOR: FLACO,DOC PHYSICIAN: REFERRING PHYSICIAN: CHIDI CURTIS MD DATE OF SERVICE: 10/30/20 Case Management Discharge Planning Summary COMMENTS ENTERED DATE: 10/30/20 20:56 CT COMMENT TYPE: Discharge Planning REVIEWER: Chaparrita Green CM spoke with patient at bedside and explained mcc to him and he stated that he would consider it but it would need to be a facility that he can smoke. CM spoke with Loreto and she will come and see him and explain what she has available. ENTERED DATE: 10/27/20 10:38 CT COMMENT TYPE: Discharge Planning REVIEWER: García Kline CM met with patient to complete DC plan and to evaluate needs. Patient stated that he readmitted because he was dehydrated. Patient stated that he was unable to obtain his medications after last discharge and unfortunately was not able to keep his follow up appointment. Patient stated that he followed the dc instructions given to him. It appears that this readmission was due to a new condition of dehydration. Patient lives alone with weak support but identifies his gómez Mendoza [place], , as his person to notify. Patient stated that his home is safe and has electricity and running water. Patient stated that he has no problems paying for medications and he fills his medications at [facility]. Patient stated that his primary care physician is Dr. Angulo. CM discussed availability of home health, rehab services, and medical equipment. Patient declined HHS, SNF, and DME, but would like IPR services through [facility]. YISEL for [facility] Inpatient rehab signed and placed on chart. Patient stated that he has fallen many times at home despite having walkers. Patient voiced no other needs at this time and is satisfied with DC plan. Transportation provider at discharge will be with person. DC IMM delivered, explained, signed by the patient, and placed in chart. Signed form also left with the patient. CM will continue to follow and will assist as needed with dc plans/needs DCP REVIEW SUMMARY ANTICIPATED D/C DATE: EXPECTED LOS : CASE STATUS: DCP Initiated INITIAL REVIEW: 10/25/2020 INITIAL REVIEWER: García Kline FINAL DISCHARGE DISPOSITION: : FINAL REVIEWER: FINAL REVIEW DATE: DCP Focus Questions & Answers DCP Evaluation QUESTION: ANSWER Patient and/or caregiver agree upon recommended discharge plan? : Yes Family / Caregiver's ability to cope with chronic illness: : b. Minimal (occasionally not dependable to meet pt's. needs, can meet pt's. basic ADL's) Patient's current cognitive status: : *Oriented to person, place, situation, time and present Patient gives permission to discuss discharge plans with: (name, relationship and number) : friendReji, Patient's ability to cope with chronic illness : d. No chronic illness Does the patient have the ability to pay for or attain post discharge needs / services? : Yes Functional screen assessment: : Basic needs can adequately be met by self Family / Caregiver's ability to cope with chronic illness: : b. Minimal (occasionally not dependable to meet pt's. needs, can meet pt's. basic ADL's) Physical Status: : Independent with ADL's Equipment needed for post hospitalization: : None Is there a likelihood that the patient will require additional services to return to the preadmission environment? : Yes Living Arrangements: : Home Alone with Support Patient with capacity for self-care or can be cared for in same environment as prior to hospitalization? : No Baseline cognitive status: : *Oriented to person, place, situation, time and present Physical environment modification needed / anticipated for discharge: : No Medication Management: : Patient states can read and understand medication labels Medication Management: : Patient states can afford medications Pharmacy name(s): : [facility]. Does Patient have transportation to get home and to follow-up medical appointments when discharged from the hospital? : Yes Would patient like to participate in any Care Coordination programs (if applicable): : Not applicable Does the patient have electricity at home? : Yes Does the patient have running water in their house? : Yes Equipment in use: : Walker - Rolling Mental health screen: : No mental health history DCP Re-evaluation QUESTION: ANSWER Would patient like to participate in any Care Coordination programs (if applicable): : Not applicable PATIENT: LANDON HSU ENCOUNTER: [id number] MEDICAL RECORD#: [id number] ADMISSION DATE: 10/25/2020 DISCHARGE DATE: ATTENDING MD: CHIDI WORLEY : AGE: 65 MARITAL STATUS: S DC PLAN ID: [id number] FACILITY: [facility] PRINTED ON: 10/30/20 21:12 CT All edits/amendments must be made on the electronic document DICTATION DATE: 10/30/202111 BUILDING INSPECTOR: ANDREW 10/30/202111 RPT#: [id number] DC DATE: STATUS: ADM IN [facility] [address] [place] [address] END OF REPORT
--- NOTE | 2020-10-30 21:22 | NUR ---
OT NOTE: PT COMPLETED ADL MOB WITH RW REQUIRED SBA-CGA. PT COMPLETED TOILETING WITH SBA. PT COMPLETED HYGIENE WITH SBA. PT COMPLETED HAND HYGIENE WITH SBA AT SINK. PT COMPLETED HAIR GROOMING AT SINK LEVEL WITH SBA. CL WITHIN REACH. [phone] HERACLIO CARRERA COTA
[2020-10-31 00:11] VITALS: BP 128/76
--- NOTE | 2020-10-31 04:56 | NUR ---
I have reviewed this patient and I concur with the Shift Assessment completed by the Licensed Practical Nurse today this shift.
[2020-10-31 05:26] VITALS: BP 120/82
[2020-10-31 07:12] LABS: BASOPHILS 1.2 % (0-2); EOSINOPHILS 4.3 % (0-7); HEMATOCRIT 28.2 % (42.0-54.0); HEMOGLOBIN 9.4 g/dL (13.5-17.5); LYMPHOCYTES 15.3 % (15-50); MCHC 33.4 g/dL (31.0-37.0); MCV 86.8 fL (80.0-100.0); MEAN PLATELET VOLUME 6.1 fL (7.4-10.4); MONOCYTES 5.4 % (2-11); NEUTROPHILS 73.8 % (40-80); PLATELET COUNT 386 10x3/uL (130-400); RBC 3.24 10x6/uL (4.20-6.10); RDW 14.9 % (11.5-14.5); WBC 9.1 10x3/uL (4.8-10.8)
[2020-10-31 07:29] LABS: ALBUMIN 2.3 g/dL (3.4-5.0); ALKALINE PHOSPHATASE 45 U/L (30-120); ALT (SGPT) 13 U/L (10-68); BILIRUBIN - TOTAL 0.23 mg/dL (0.2-1.3); CALC OSMOLALITY 264 mosm/kg (275-300); CALCIUM 8.5 mg/dL (8.5-10.1); CARBON DIOXIDE 27.8 mmol/L (21.0-32.0); CHLORIDE - SERUM 97 mmol/L (98-107); GLUCOSE 88 mg/dL (74-106); POTASSIUM - SERUM 4.5 mmol/L (3.5-5.1); PROTEIN - SERUM 5.1 g/dL (6.4-8.2); SODIUM 132 mmol/L (136-145); UREA NITROGEN 16 mg/dL (7-18); eGFR NON AFRICAN AMERICAN 80 mL/min (90-120)
[2020-10-31 08:28] VITALS: BP 118/75
--- NOTE | 2020-10-31 12:18 | NUR ---
AMBULATES HALLWAY WITH PT JACEY. LEG BAG ON ORDERED.
[2020-10-31 12:23] VITALS: BP 111/73
--- NOTE | 2020-10-31 13:20 | NUR ---
OT NOTE: PT COMPLETED SUPINE TO SIT WITH SBA-CGA. PT COMPLETED SIT TO STAND WITH SBA-CGA. PT COMPLETED ADL MOB WITH SBA-CGA. PT COMPLETED TOILETING WITH SBA-CGA. PT REQUIRED SBA-CGA FOR HYGIENE. PT COMPLETED HAND HYGIENE AT SINK LEVEL WITH SBA. PT COMPLETED HAIR GROOMING WITH SBA. ALARM ON...CL IN REACH. [phone] HERACLIO CARRERA COTA
--- NOTE | 2020-10-31 13:36 | NUR ---
Nutrition Reassessment/Follow-up: Eating well. Observed 100% of breakfast tray eaten this AM + 100% of Ensure. Requires assistance with feeding; noted sign on door. Diet: Full Liquid, Ensure QID Wt: 136# (10/29)BMI 19.5 Labs noted: Na 132, Alb 2.3 Meds noted: Florajen, Questran, Protonix, electrolyte protocol Est needs: 4297-7045 kcal/day (25-30 kcal/kg) 50-60 g protein/day (0.8-1 g/kg) 6696-5021 mL fluid/day (1 mL/kcal) or per MD Nutrition Diagnosis: -Altered GI function R/T alteration in GI tract structure and/or function AEB esophageal mass and achalasia. Nutrition Goals: -PO intake >=75% avg of meals/snacks. -Meet est fluid needs without fluid overload. -Stable dry wt. Nutrition Intervention: -Encourage PO intake and honor food preferences within diet restrictions. -Continue Ensure as tolerated. -Need new wt. -RD follow-up: 11/05
[2020-10-31 17:11] VITALS: BP 123/70
[2020-10-31 19:16] VITALS: BP 174/78
--- NOTE | 2020-10-31 23:00 | NUR ---
REPORT RECEIVED. PT A&O, UP IN BED WATCHING TV. NO S/S OF DISTRESS OBSERVED. RR EVEN & UNLABORED ON RA. L HAND IV PATENT, SL, SWAB CAPS IN USE. ST 108 ON TELE. BED LOCKED AND LOWERED, CL IN REACH. ASSESSMENT COMPLETE. WILL CONT POC.
[2020-11-01 00:54] VITALS: BP 124/78
[2020-11-01 05:06] VITALS: BP 114/80
--- NOTE | 2020-11-01 06:50 | NUR ---
RECIEVED BEDSIDE REPORT. PATIENT AWAKE AND ALERT, NO CURRENT PAIN OR DISTRESS NOTED. REESP EVEN AND UNLABORED ON ROOM AIR. LEFT HAND SALINE LOCK.
[2020-11-01 06:51] LABS: HEMOGLOBIN 9.7 g/dL (13.5-17.5); MCH 28.9 pg (26.0-34.0); MCHC 33.3 g/dL (31.0-37.0); MCV 86.7 fL (80.0-100.0); MEAN PLATELET VOLUME 6.1 fL (7.4-10.4); PLATELET COUNT 445 10x3/uL (130-400); RBC 3.35 10x6/uL (4.20-6.10); RDW 15.4 % (11.5-14.5)
[2020-11-01 07:10] LABS: ALBUMIN 2.4 g/dL (3.4-5.0); ALKALINE PHOSPHATASE 49 U/L (30-120); ALT (SGPT) 15 U/L (10-68); BILIRUBIN - TOTAL 0.25 mg/dL (0.2-1.3); CALC OSMOLALITY 256 mosm/kg (275-300); CALCIUM 8.4 mg/dL (8.5-10.1); CARBON DIOXIDE 26.9 mmol/L (21.0-32.0); CHLORIDE - SERUM 94 mmol/L (98-107); GLUCOSE 91 mg/dL (74-106); POTASSIUM - SERUM 4.6 mmol/L (3.5-5.1); PROTEIN - SERUM 5.4 g/dL (6.4-8.2); SODIUM 127 mmol/L (136-145); UREA NITROGEN 17 mg/dL (7-18); eGFR NON AFRICAN AMERICAN 80 mL/min (90-120)
[2020-11-01 07:19] LABS: WBC 12.7 10x3/uL (4.8-10.8)
--- NOTE | 2020-11-01 08:28 | NUR ---
PATIENT RESTING IN BED. AWAITING BREAKFAST. RESP EVEN AND UNLABORED ON ROOM AIR. LUNG SOUNDS CLEAR. HEART SOUND REGULAR RATE AND RYTHYM. FALL RISK. LEFT HAND 20G PATENT AND SALINE LOCKED. FLORES IN PLACE. TELE SR 65. ALERT AND ORIENTED UP WITH ASSIST.
[2020-11-01 08:55] VITALS: BP 119/99
[2020-11-01 10:50] LABS: BASOPHILS 2 % (0-2); EOSINOPHILS 6 % (0-7); LYMPHOCYTES 15 % (15-50); MONOCYTES 8 % (2-11); NEUTROPHILS 67 % (40-80)
[2020-11-01 10:51] LABS: ANISOCYTOSIS 1+; PLATELET ESTIMATE INCREASED; POLYCHROMASIA OCC
--- NOTE | 2020-11-01 10:51 | NUR ---
GT BELT, PATIENT ABLE TO GET UP TO BEDSIDE AND STAND WITH CGA. PATIENT WALKED 500 FEET USING WALKER WITH CGA.
[2020-11-01 12:00] VITALS: BP 115/68
--- NOTE | 2020-11-01 14:03 | NUR ---
I have reviewed this patient and I concur with the Shift Assessment completed by the Licensed Practical Nurse today this shift.
[2020-11-01] MEDS ORDERED: NIFEREX-150 CAP1 CA3 PO (14:14)
--- NOTE | 2020-11-01 15:35 | NUR ---
I have reviewed this patient and I concur with the Shift Assessment completed by the Licensed Practical Nurse today this shift.
--- NOTE | 2020-11-01 16:52 | NUR ---
OT NOTE: PT COMPLETED SUPINE TO SIT WITH SPV. PT COMPLETED BUE AROM EXS TOLERATED AT EOB. PT COMPLETED FACE AND HAND HYGIENE WITH SETUP. CL IN REACH..ALARM ON. [phone] HERACLIO CARRERA COTA
--- NOTE | 2020-11-01 18:36 | MORECARE ---
CASE MANAGEMENT DISCHARGE SUMMARY PATIENT: LANDON HSU UNIT: [id number] ADM DATE: 10/25/20 AGE: 65 : 57 SEX: M ROOM/BED: D.2121 AUTHOR: FLACO,DOC PHYSICIAN: REFERRING PHYSICIAN: CHIDI CURTIS MD DATE OF SERVICE: 11/01/20 Case Management Discharge Planning Summary COMMENTS ENTERED DATE: 11/01/20 18:28 CT COMMENT TYPE: Discharge Planning REVIEWER: Chaparrita Green Patient being discharged to home with Care IV - CM faxed updates and resumption of care order. CM arranged for transport back to his home. CM will continue to follow and assist as needed with discharge planning / needs. ENTERED DATE: 10/30/20 20:56 CT COMMENT TYPE: Discharge Planning REVIEWER: Chaparrita Peter CM spoke with patient at bedside and explained fci to him and he stated that he would consider it but it would need to be a facility that he can smoke. CM spoke with Loreto and she will come and see him and explain what she has available. ENTERED DATE: 10/27/20 10:38 CT COMMENT TYPE: Discharge Planning REVIEWER: García Kline CM met with patient to complete DC plan and to evaluate needs. Patient stated that he readmitted because he was dehydrated. Patient stated that he was unable to obtain his medications after last discharge and unfortunately was not able to keep his follow up appointment. Patient stated that he followed the dc instructions given to him. It appears that this readmission was due to a new condition of dehydration. Patient lives alone with weak support but identifies his gómez Ramsey, , as his person to notify. Patient stated that his home is safe and has electricity and running water. Patient stated that he has no problems paying for medications and he fills his medications at [facility]. Patient stated that his primary care physician is Dr. Angulo. CM discussed availability of home health, rehab services, and medical equipment. Patient declined HHS, SNF, and DME, but would like IPR services through [facility]. YISEL for [facility] Inpatient rehab signed and placed on chart. Patient stated that he has fallen many times at home despite having walkers. Patient voiced no other needs at this time and is satisfied with DC plan. Transportation provider at discharge will be with person. DC IMM delivered, explained, signed by the patient, and placed in chart. Signed form also left with the patient. CM will continue to follow and will assist as needed with dc plans/needs DCP REVIEW SUMMARY ANTICIPATED D/C DATE: EXPECTED LOS : CASE STATUS: DCP Initiated INITIAL REVIEW: 10/25/2020 INITIAL REVIEWER: García Kline FINAL DISCHARGE DISPOSITION: : FINAL REVIEWER: FINAL REVIEW DATE: DCP Focus Questions & Answers DCP Evaluation QUESTION: ANSWER Patient gives permission to discuss discharge plans with: (name, relationship and number) : friendReji, Patient's ability to cope with chronic illness : d. No chronic illness Patient's current cognitive status: : *Oriented to person, place, situation, time and present Family / Caregiver's ability to cope with chronic illness: : b. Minimal (occasionally not dependable to meet pt's. needs, can meet pt's. basic ADL's) Patient and/or caregiver agree upon recommended discharge plan? : Yes Physical Status: : Independent with ADL's Family / Caregiver's ability to cope with chronic illness: : b. Minimal (occasionally not dependable to meet pt's. needs, can meet pt's. basic ADL's) Functional screen assessment: : Basic needs can adequately be met by self Does the patient have the ability to pay for or attain post discharge needs / services? : Yes Living Arrangements: : Home Alone with Support Is there a likelihood that the patient will require additional services to return to the preadmission environment? : Yes Equipment needed for post hospitalization: : None Baseline cognitive status: : *Oriented to person, place, situation, time and present Patient with capacity for self-care or can be cared for in same environment as prior to hospitalization? : No Physical environment modification needed / anticipated for discharge: : No Medication Management: : Patient states can afford medications Medication Management: : Patient states can read and understand medication labels Pharmacy name(s): : [facility]. Does Patient have transportation to get home and to follow-up medical appointments when discharged from the hospital? : Yes Would patient like to participate in any Care Coordination programs (if applicable): : Not applicable Does the patient have electricity at home? : Yes Does the patient have running water in their house? : Yes Equipment in use: : Walker - Rolling Mental health screen: : No mental health history DCP Re-evaluation QUESTION: ANSWER Would patient like to participate in any Care Coordination programs (if applicable): : Not applicable PATIENT: LANDON HSU ENCOUNTER: [id number] MEDICAL RECORD#: [id number] ADMISSION DATE: 10/25/2020 DISCHARGE DATE: 11/01/2020 ATTENDING MD: CHIDI WORLEY : AGE: 65 MARITAL STATUS: S DC PLAN ID: [id number] FACILITY: [facility] PRINTED ON: 11/01/20 18:36 CT All edits/amendments must be made on the electronic document DICTATION DATE: 11/01/201835 CHAIN SALES CONSULTANT: ANDREW 11/01/201835 RPT#: [id number] DC DATE:11/01/20 STATUS: DIS IN [facility] [address] [place] [address] END OF REPORT
--- NOTE | 2020-11-01 20:09 | MORECARE ---
CASE MANAGEMENT DISCHARGE SUMMARY PATIENT: LANDON HSU UNIT: [id number] ADM DATE: 10/25/20 AGE: 65 : 57 SEX: M ROOM/BED: D.2121 AUTHOR: FLACO,DOC PHYSICIAN: REFERRING PHYSICIAN: CHIDI CURTIS MD DATE OF SERVICE: 11/01/20 Case Management Discharge Planning Summary COMMENTS ENTERED DATE: 11/01/20 18:28 CT COMMENT TYPE: Discharge Planning REVIEWER: Chaparrita Green Patient being discharged to home with Care IV - CM faxed updates and resumption of care order. CM arranged for transport back to his home. CM will continue to follow and assist as needed with discharge planning / needs. ENTERED DATE: 10/30/20 20:56 CT COMMENT TYPE: Discharge Planning REVIEWER: Chaparrita Peter CM spoke with patient at bedside and explained mcc to him and he stated that he would consider it but it would need to be a facility that he can smoke. CM spoke with Loreto and she will come and see him and explain what she has available. ENTERED DATE: 10/27/20 10:38 CT COMMENT TYPE: Discharge Planning REVIEWER: García Kline CM met with patient to complete DC plan and to evaluate needs. Patient stated that he readmitted because he was dehydrated. Patient stated that he was unable to obtain his medications after last discharge and unfortunately was not able to keep his follow up appointment. Patient stated that he followed the dc instructions given to him. It appears that this readmission was due to a new condition of dehydration. Patient lives alone with weak support but identifies his gómez Ramsey, , as his person to notify. Patient stated that his home is safe and has electricity and running water. Patient stated that he has no problems paying for medications and he fills his medications at [facility]. Patient stated that his primary care physician is Dr. Angulo. CM discussed availability of home health, rehab services, and medical equipment. Patient declined HHS, SNF, and DME, but would like IPR services through [facility]. YISEL for [facility] Inpatient rehab signed and placed on chart. Patient stated that he has fallen many times at home despite having walkers. Patient voiced no other needs at this time and is satisfied with DC plan. Transportation provider at discharge will be with person. DC IMM delivered, explained, signed by the patient, and placed in chart. Signed form also left with the patient. CM will continue to follow and will assist as needed with dc plans/needs DCP REVIEW SUMMARY ANTICIPATED D/C DATE: EXPECTED LOS : CASE STATUS: DCP Initiated INITIAL REVIEW: 10/25/2020 INITIAL REVIEWER: García Kline FINAL DISCHARGE DISPOSITION: : FINAL REVIEWER: FINAL REVIEW DATE: DCP Focus Questions & Answers DCP Evaluation QUESTION: ANSWER Patient gives permission to discuss discharge plans with: (name, relationship and number) : friendReji, Patient's ability to cope with chronic illness : d. No chronic illness Patient's current cognitive status: : *Oriented to person, place, situation, time and present Family / Caregiver's ability to cope with chronic illness: : b. Minimal (occasionally not dependable to meet pt's. needs, can meet pt's. basic ADL's) Patient and/or caregiver agree upon recommended discharge plan? : Yes Physical Status: : Independent with ADL's Family / Caregiver's ability to cope with chronic illness: : b. Minimal (occasionally not dependable to meet pt's. needs, can meet pt's. basic ADL's) Functional screen assessment: : Basic needs can adequately be met by self Does the patient have the ability to pay for or attain post discharge needs / services? : Yes Living Arrangements: : Home Alone with Support Is there a likelihood that the patient will require additional services to return to the preadmission environment? : Yes Equipment needed for post hospitalization: : None Baseline cognitive status: : *Oriented to person, place, situation, time and present Patient with capacity for self-care or can be cared for in same environment as prior to hospitalization? : No Physical environment modification needed / anticipated for discharge: : No Medication Management: : Patient states can afford medications Medication Management: : Patient states can read and understand medication labels Pharmacy name(s): : [facility]. Does Patient have transportation to get home and to follow-up medical appointments when discharged from the hospital? : Yes Would patient like to participate in any Care Coordination programs (if applicable): : Not applicable Does the patient have electricity at home? : Yes Does the patient have running water in their house? : Yes Equipment in use: : Walker - Rolling Mental health screen: : No mental health history DCP Re-evaluation QUESTION: ANSWER Would patient like to participate in any Care Coordination programs (if applicable): : Not applicable PATIENT: LANDON HSU ENCOUNTER: [id number] MEDICAL RECORD#: [id number] ADMISSION DATE: 10/25/2020 DISCHARGE DATE: 11/01/2020 ATTENDING MD: CHIDI WORLEY : AGE: 65 MARITAL STATUS: S DC PLAN ID: [id number] FACILITY: [facility] PRINTED ON: 11/01/20 20:09 CT All edits/amendments must be made on the electronic document DICTATION DATE: 11/01/202008 PATCH DRILLER: ANDREW 11/01/202008 RPT#: [id number] DC DATE:11/01/20 STATUS: DIS IN [facility] [address] [place] [address] END OF REPORT
--- NOTE | 2020-11-05 11:32 | MORECARE ---
CASE MANAGEMENT DISCHARGE SUMMARY PATIENT: LANDON HSU UNIT: [id number] ADM DATE: 10/25/20 AGE: 65 : 57 SEX: M ROOM/BED: D.2121 AUTHOR: FLACO,DOC PHYSICIAN: REFERRING PHYSICIAN: CHIDI CURTIS MD DATE OF SERVICE: 11/05/20 Case Management Discharge Planning Summary COMMENTS ENTERED DATE: 11/01/20 18:28 CT COMMENT TYPE: Discharge Planning REVIEWER: Chaparrita Green Patient being discharged to home with Care IV - CM faxed updates and resumption of care order. CM arranged for transport back to his home. CM will continue to follow and assist as needed with discharge planning / needs. ENTERED DATE: 10/30/20 20:56 CT COMMENT TYPE: Discharge Planning REVIEWER: Chaparrita Furr CM spoke with patient at bedside and explained custodial to him and he stated that he would consider it but it would need to be a facility that he can smoke. CM spoke with Loreto and she will come and see him and explain what she has available. ENTERED DATE: 10/27/20 10:38 CT COMMENT TYPE: Discharge Planning REVIEWER: García Kline CM met with patient to complete DC plan and to evaluate needs. Patient stated that he readmitted because he was dehydrated. Patient stated that he was unable to obtain his medications after last discharge and unfortunately was not able to keep his follow up appointment. Patient stated that he followed the dc instructions given to him. It appears that this readmission was due to a new condition of dehydration. Patient lives alone with weak support but identifies his gómez Ramsey, , as his person to notify. Patient stated that his home is safe and has electricity and running water. Patient stated that he has no problems paying for medications and he fills his medications at [facility]. Patient stated that his primary care physician is Dr. Angulo. CM discussed availability of home health, rehab services, and medical equipment. Patient declined HHS, SNF, and DME, but would like IPR services through [facility]. YISEL for [facility] Inpatient rehab signed and placed on chart. Patient stated that he has fallen many times at home despite having walkers. Patient voiced no other needs at this time and is satisfied with DC plan. Transportation provider at discharge will be with person. DC IMM delivered, explained, signed by the patient, and placed in chart. Signed form also left with the patient. CM will continue to follow and will assist as needed with dc plans/needs DCP REVIEW SUMMARY ANTICIPATED D/C DATE: EXPECTED LOS : CASE STATUS: DCP Initiated INITIAL REVIEW: 10/25/2020 INITIAL REVIEWER: García Kline FINAL DISCHARGE DISPOSITION: : FINAL REVIEWER: FINAL REVIEW DATE: DCP Focus Questions & Answers DCP Evaluation QUESTION: ANSWER Patient gives permission to discuss discharge plans with: (name, relationship and number) : friendReji, Patient's ability to cope with chronic illness : d. No chronic illness Patient's current cognitive status: : *Oriented to person, place, situation, time and present Family / Caregiver's ability to cope with chronic illness: : b. Minimal (occasionally not dependable to meet pt's. needs, can meet pt's. basic ADL's) Patient and/or caregiver agree upon recommended discharge plan? : Yes Physical Status: : Independent with ADL's Family / Caregiver's ability to cope with chronic illness: : b. Minimal (occasionally not dependable to meet pt's. needs, can meet pt's. basic ADL's) Functional screen assessment: : Basic needs can adequately be met by self Does the patient have the ability to pay for or attain post discharge needs / services? : Yes Living Arrangements: : Home Alone with Support Is there a likelihood that the patient will require additional services to return to the preadmission environment? : Yes Equipment needed for post hospitalization: : None Baseline cognitive status: : *Oriented to person, place, situation, time and present Patient with capacity for self-care or can be cared for in same environment as prior to hospitalization? : No Physical environment modification needed / anticipated for discharge: : No Medication Management: : Patient states can afford medications Medication Management: : Patient states can read and understand medication labels Pharmacy name(s): : [facility]. Does Patient have transportation to get home and to follow-up medical appointments when discharged from the hospital? : Yes Would patient like to participate in any Care Coordination programs (if applicable): : Not applicable Does the patient have electricity at home? : Yes Does the patient have running water in their house? : Yes Equipment in use: : Walker - Rolling Mental health screen: : No mental health history DCP Re-evaluation QUESTION: ANSWER Would patient like to participate in any Care Coordination programs (if applicable): : Not applicable PATIENT: LANDON HSU ENCOUNTER: [id number] MEDICAL RECORD#: [id number] ADMISSION DATE: 10/25/2020 DISCHARGE DATE: 11/01/2020 ATTENDING MD: CHIDI WORLEY : AGE: 65 MARITAL STATUS: S DC PLAN ID: [id number] FACILITY: PRINTED ON: 11/05/20 11:32 CT All edits/amendments must be made on the electronic document DICTATION DATE: 11/05/20 113 DIGITAL PRINTER: ANDREW 11/05/20 113 RPT#: [id number] DC DATE:11/01/20 STATUS: DIS IN [address] [place] [address] END OF REPORT
== END 2020-11-01 16:23 | disposition home health service (06) | DRG 683 ==
LOC: D.ER 23:41 → D.M2 10-25 02:36 → OBSVTIME 10-25 02:36 → D.M2 10-25 16:03
PROVIDERS: Emergency Medicine; Student in an Organized Health Care Education/Training Program; ADMIT Family Medicine; ATTEND Family Medicine
DX: N17.9 Acute kidney failure, unspecified (principal); E87.1 Hypo-osmolality and hyponatremia; E86.0 Dehydration; I10 Essential (primary) hypertension; J45.909 Unspecified asthma, uncomplicated; G35 Multiple sclerosis; F20.9 Schizophrenia, unspecified; K22.0 Achalasia of cardia; D64.9 Anemia, unspecified; E83.42 Hypomagnesemia; F17.200 Nicotine dependence, unspecified, uncomplicated; F31.9 Bipolar disorder, unspecified

== ENCOUNTER → 2020-11-07 15:19 | Outpatient (CLI) | payer OTHER ==
[2020-10-25 13:33] VITALS: BMI 21.2
[~2020-11-07 15:19] MED LIST changes: +NIFEREX-150 CAP1 CA3 PO
== END | disposition home or self-care (01) ==
LOC: D.LAB 15:19
PROVIDERS: ATTEND Internal Medicine Pulmonary Disease
DX: Z11.52 Encounter for screening for COVID-19 (principal)

== ENCOUNTER 2020-11-08 05:24 | Emergency (ER) | payer OTHER ==
[~2020-11-08] VITALS: Ht 177.8 cm; Wt 54.5 kg
[2020-11-08 05:26] VITALS: Ht 177.8 cm; Wt 54.5 kg
[2020-11-08 06:00] LABS: BASOPHILS 1.1 % (0-2); EOSINOPHILS 0.7 % (0-7); HEMATOCRIT 32.9 % (42.0-54.0); HEMOGLOBIN 10.9 g/dL (13.5-17.5); LYMPHOCYTES 17.3 % (15-50); MCH 29.3 pg (26.0-34.0); MCHC 33.2 g/dL (31.0-37.0); MCV 88.5 fL (80.0-100.0); MEAN PLATELET VOLUME 6.3 fL (7.4-10.4); MONOCYTES 7.7 % (2-11); NEUTROPHILS 73.2 % (40-80); PLATELET COUNT 423 10x3/uL (130-400); RBC 3.72 10x6/uL (4.20-6.10); RDW 15.7 % (11.5-14.5); WBC 9.5 10x3/uL (4.8-10.8)
[2020-11-08 06:13] LABS: ANION GAP 12.6 mmol/L (8-16); CALCIUM 8.4 mg/dL (8.5-10.1); CARBON DIOXIDE 24.2 mmol/L (21.0-32.0); CREATININE - SERUM 1.1 mg/dL (0.6-1.3); POTASSIUM - SERUM 3.8 mmol/L (3.5-5.1)
[2020-11-08 06:19] LABS: ALBUMIN 3.2 g/dL (3.4-5.0); BILIRUBIN - TOTAL 0.35 mg/dL (0.2-1.3); PROTEIN - SERUM 6.1 g/dL (6.4-8.2)
[2020-11-08] MEDS ORDERED: MIRALAX17 GM PO (07:06)
[2020-11-08 08:57] VITALS: BP 127/74
== END 2020-11-08 08:58 | disposition home or self-care (01) ==
LOC: D.ER 05:24
PROVIDERS: Emergency Medicine
DX: K59.01 Slow transit constipation (principal); I10 Essential (primary) hypertension; G35 Multiple sclerosis; J45.909 Unspecified asthma, uncomplicated; K21.9 Gastro-esophageal reflux disease without esophagitis

== ENCOUNTER → 2020-11-13 07:35 | Outpatient (CLI) | payer OTHER ==
[2020-11-08 05:26] VITALS: BMI 17.2
[~2020-11-13 07:35] MED LIST changes: +ALBUTEROL2.5 MG/3 M INH; +IPRAT-ALBUT 0.5-3 ML UPD
== END | disposition home or self-care (01) ==
LOC: D.RT 11-07 14:00 → D.RAD 11-07 14:45 → D.RT 07:35
PROVIDERS: ATTEND Internal Medicine Pulmonary Disease
DX: J45.909 Unspecified asthma, uncomplicated (principal)

== ENCOUNTER 2020-11-13 13:04 | Observation (INO) | payer OTHER ==
[~2020-11-13] VITALS: Ht 177.8 cm; Wt 67.1 kg
[~2020-11-13 13:04] MED LIST changes: -ALBUTEROL2.5 MG/3 M INH; -IPRAT-ALBUT 0.5-3 ML UPD
[2020-11-13 14:49] LABS: BASOPHILS 0.6 % (0-2); EOSINOPHILS 1.4 % (0-7); HEMATOCRIT 35.1 % (42.0-54.0); HEMOGLOBIN 11.5 g/dL (13.5-17.5); LYMPHOCYTES 12.8 % (15-50); MCH 29.4 pg (26.0-34.0); MCHC 32.6 g/dL (31.0-37.0); MCV 90.1 fL (80.0-100.0); MEAN PLATELET VOLUME 6.7 fL (7.4-10.4); MONOCYTES 4.7 % (2-11); NEUTROPHILS 80.5 % (40-80); PLATELET COUNT 409 10x3/uL (130-400); WBC 10.6 10x3/uL (4.8-10.8)
[2020-11-13 14:50] LABS: ANION GAP 11.9 mmol/L (8-16); CALCIUM 8.7 mg/dL (8.5-10.1); CARBON DIOXIDE 24.8 mmol/L (21.0-32.0); CREATININE - SERUM 1.1 mg/dL (0.6-1.3); POTASSIUM - SERUM 3.7 mmol/L (3.5-5.1)
[2020-11-13 14:56] LABS: ALBUMIN 3.3 g/dL (3.4-5.0); BILIRUBIN - TOTAL 0.26 mg/dL (0.2-1.3); PROTEIN - SERUM 6.5 g/dL (6.4-8.2)
--- NOTE | 2020-11-13 18:10 | NUR ---
1808 MULTIPLE PASSES WITH NET TO RETRIEVE FOOD, OTHER PUSHED INTO STOMACH.
--- NOTE | 2020-11-13 18:48 | NUR ---
PT STATES HE HAS LEG CRAMPS, PRE-EXISTING CONDITION, HAPPENS FREQUENTLY
[2020-11-13 19:27] VITALS: BP 149/85
--- NOTE | 2020-11-13 19:30 | NUR ---
RECEIVED PT FROM PACU, VSS, PT A&O X4. PIV TO LEFT HAND, PATENT AND INFUSING, NO REDNESS OR SWELLING. EDUCATED PT ON CL AND NEEDS, VERBALIZED UNDERSTANDING. BED LOW, CL IN REACH.
[2020-11-13 20:10] VITALS: BP 149/85; BMI 21.2
[2020-11-14] VITALS: BP 131/73
[2020-11-14 04:26] VITALS: BP 156/94
[2020-11-14 06:34] LABS: BASOPHILS 0.2 % (0-2); EOSINOPHILS 0.1 % (0-7); HEMATOCRIT 30.3 % (42.0-54.0); HEMOGLOBIN 10.1 g/dL (13.5-17.5); MCH 29.5 pg (26.0-34.0); MCHC 33.5 g/dL (31.0-37.0); MEAN PLATELET VOLUME 6.7 fL (7.4-10.4); MONOCYTES 4.5 % (2-11); NEUTROPHILS 87.2 % (40-80); PLATELET COUNT 423 10x3/uL (130-400); RBC 3.44 10x6/uL (4.20-6.10); RDW 16.2 % (11.5-14.5); WBC 10.7 10x3/uL (4.8-10.8)
[2020-11-14 07:12] LABS: ALBUMIN 2.5 g/dL (3.4-5.0); ALKALINE PHOSPHATASE 52 U/L (30-120); BILIRUBIN - TOTAL 0.37 mg/dL (0.2-1.3); CALC OSMOLALITY 270 mosm/kg (275-300); CALCIUM 7.7 mg/dL (8.5-10.1); CARBON DIOXIDE 21.9 mmol/L (21.0-32.0); CHLORIDE - SERUM 102 mmol/L (98-107); GLUCOSE 93 mg/dL (74-106); MAGNESIUM - SERUM 1.8 mg/dL (1.8-2.4); PHOSPHOROUS 4.2 mg/dL (2.5-4.9); POTASSIUM - SERUM 4.2 mmol/L (3.5-5.1); SODIUM 135 mmol/L (136-145); UREA NITROGEN 15 mg/dL (7-18); eGFR NON AFRICAN AMERICAN 80 mL/min (90-120)
[2020-11-14 07:13] LABS: ALT (SGPT) 9 U/L (10-68)
[2020-11-14 08:43] VITALS: BP 138/82
--- NOTE | 2020-11-14 09:00 | NUR ---
RECIEVED BEDSIDE REPORT. BED LOW POSITION, CALL LIGHT IN REACH. FREE FROM SIGNS OF DISTRESS. WILL CONTINUE TO MONITOR.
[2020-11-14] MEDS ORDERED: ALBUTEROL2.5 MG/3 M INH (12:51)
[2020-11-14] MEDS ORDERED: IPRAT-ALBUT 0.5-3 ML UPD (12:51)
[2020-11-14 13:01] VITALS: BP 128/73
[2020-11-14 14:52] VITALS: Ht 177.8 cm; Wt 67.1 kg
--- NOTE | 2020-11-14 17:05 | MORECARE ---
CASE MANAGEMENT DISCHARGE SUMMARY PATIENT: LANDON HSU UNIT: [id number] ADM DATE: 11/13/20 AGE: 65 : 57 SEX: M ROOM/BED: D.2213 AUTHOR: JAYLA SAM PHYSICIAN: REFERRING PHYSICIAN: LLOYD HORTON MD DATE OF SERVICE: 11/14/20 Case Management Discharge Planning Summary COMMENTS ENTERED DATE: 11/14/20 16:54 CT COMMENT TYPE: Discharge Planning REVIEWER: Brisa Henriquez PATIENT WAS DISCHARGED TODAY HOME, I CALLED AND SPOKE WITH HIS REINFORCEMENT MAKER NICANOR ) ABOUT THE PATIENT BEING DISCHARGED, SHE STATED THAT THEY USUALLY WITH TRANSPORT HIM HOME, BUT SHE DIDN'T THINK THAT ANYONE COULD SO ASKED IF WE CAN GET HIM A TAXI PATIENT IS CURRENT WITH [facility] AND THEY WILL RESUME SERVICES HE IS ALSO PART OF THE [facility], PART OF THE [employer] THEY TAKE CARE OF HIS MEDICATIONS AND HE HAS AN AIDE WHO COMES TO HIS HOME TO HELP CLEAN HIS HOME. HIS PCP IS SHIRA TURNER, HE HAS A WALKER AT HOME AND NEBULIZER HE STATES THAT HIS FRIENDS TAKE HIM TO GET GROCERIES. WILL PROVIDE HIM WITH A TAXI TO GET HOME THE COST WILL BE 8.00 I HAVE FAXED HIS CLINCIALS TO [facility] AND TO [facility] REVIEW SUMMARY ANTICIPATED D/C DATE: EXPECTED LOS : CASE STATUS: DCP Initiated INITIAL REVIEW: 11/13/2020 INITIAL REVIEWER: Brisa Henriquez FINAL DISCHARGE DISPOSITION: 06 : Discharged/Trans to Home Under Care of Organized Home Health Service in Anticipation of Skilled Care FINAL REVIEWER: FINAL REVIEW DATE: [facility] Questions & Answers QUESTION: ANSWER : PATIENT: LANDON HSU ENCOUNTER: [id number] MEDICAL RECORD#: [id number] ADMISSION DATE: 11/13/2020 DISCHARGE DATE: ATTENDING MD: LLOYD MORELAND : AGE: 65 MARITAL STATUS: S DC PLAN ID: [id number] FACILITY: [facility] PRINTED ON: 11/14/20 17:05 CT All edits/amendments must be made on the electronic document DICTATION DATE: 11/14/201704 HEEL NAIL RASPER: ANDREW 11/14/201704 RPT#: [id number] DC DATE: STATUS: ADM IN [facility] [address] [place] [address] END OF REPORT
[2020-11-14 17:34] VITALS: BP 150/80
--- NOTE | 2020-11-14 18:22 | NUR ---
DISCHARGE PAPERS COMPLETE. NO FURTHER QUESTIONS. IV CATH REMOVED. CATH TIP INTACT. BELONGINGS GATHERED. LEFT UNIT VIA WHEELCHAIR TO HOME. TAXI CALLED, ESTIMATED ARRIVAL TIME 1834.
--- NOTE | 2020-11-14 18:42 | MORECARE ---
CASE MANAGEMENT DISCHARGE SUMMARY PATIENT: LANDON HSU UNIT: [id number] ADM DATE: 11/13/20 AGE: 65 : 57 SEX: M ROOM/BED: D.2213 AUTHOR: JAYLA SAM PHYSICIAN: REFERRING PHYSICIAN: LLOYD HORTON MD DATE OF SERVICE: 11/14/20 Case Management Discharge Planning Summary COMMENTS ENTERED DATE: 11/14/20 16:54 CT COMMENT TYPE: Discharge Planning REVIEWER: Brisa Henriquez PATIENT WAS DISCHARGED TODAY HOME, I CALLED AND SPOKE WITH HIS GIS CONSULTANT NICANOR ) ABOUT THE PATIENT BEING DISCHARGED, SHE STATED THAT THEY USUALLY WITH TRANSPORT HIM HOME, BUT SHE DIDN'T THINK THAT ANYONE COULD SO ASKED IF WE CAN GET HIM A TAXI PATIENT IS CURRENT WITH [facility] AND THEY WILL RESUME SERVICES HE IS ALSO PART OF THE [facility] [employer] [facility]LL[facility], PART OF THE [employer] THEY TAKE CARE OF HIS MEDICATIONS AND HE HAS AN AIDE WHO COMES TO HIS HOME TO HELP CLEAN HIS HOME. HIS PCP IS SHIRA TURNER, HE HAS A WALKER AT HOME AND NEBULIZER HE STATES THAT HIS FRIENDS TAKE HIM TO GET GROCERIES. WILL PROVIDE HIM WITH A TAXI TO GET HOME THE COST WILL BE 8.00 I HAVE FAXED HIS CLINCIALS TO [facility] AND TO [facility] REVIEW SUMMARY ANTICIPATED D/C DATE: EXPECTED LOS : CASE STATUS: DCP Initiated INITIAL REVIEW: 11/13/2020 INITIAL REVIEWER: Brisa Martinez FINAL DISCHARGE DISPOSITION: 06 : Discharged/Trans to Home Under Care of Organized Home Health Service in Anticipation of Skilled Care FINAL REVIEWER: FINAL REVIEW DATE: [facility] Questions & Answers QUESTION: ANSWER : PATIENT: LANDON HSU ENCOUNTER: [id number] MEDICAL RECORD#: [id number] ADMISSION DATE: 11/13/2020 DISCHARGE DATE: 11/14/2020 ATTENDING MD: LLOYD MORELAND : AGE: 65 MARITAL STATUS: S DC PLAN ID: [id number] FACILITY: [facility] PRINTED ON: 11/14/20 18:42 CT All edits/amendments must be made on the electronic document DICTATION DATE: 11/14/201841 SEALER DRY CELL: ANDREW 11/14/20 1842 RPT#: [id number] DC DATE:11/14/20 STATUS: DIS IN [facility] [address] [place] [address] END OF REPORT
== END 2020-11-14 18:36 | disposition home or self-care (01) ==
LOC: D.ER 13:04 → D.MS 14:38 → OBSVTIME 11-14 16:24 → D.MS 11-14 18:36
PROVIDERS: Family Medicine; ADMIT Emergency Medicine; ATTEND Emergency Medicine
DX: T18.128A Food in esophagus causing other injury, initial encounter (principal); K22.2 Esophageal obstruction; I10 Essential (primary) hypertension; K21.9 Gastro-esophageal reflux disease without esophagitis; J45.909 Unspecified asthma, uncomplicated; G35 Multiple sclerosis; X58.XXXA Exposure to other specified factors, initial encounter; J18.9 Pneumonia, unspecified organism; F20.9 Schizophrenia, unspecified; F31.9 Bipolar disorder, unspecified; N17.9 Acute kidney failure, unspecified; K22.0 Achalasia of cardia; F17.200 Nicotine dependence, unspecified, uncomplicated; M19.90 Unspecified osteoarthritis, unspecified site; N40.0 Benign prostatic hyperplasia without lower urinary tract symptoms; D64.9 Anemia, unspecified